=== PATIENT | female | born 1980 | race Hispanic/Latino ===

== ENCOUNTER 2019-08-15 19:10 | Inpatient (IN) | payer OTHER ==
[2019-08-15] MEDS ORDERED: NALOXONE 0.4 MG/ML VIAL ONE (19:16)
[2019-08-15] MEDS ORDERED: NALOXONE HCL 2 MG/2 ML VIAL ONE (19:22)
[2019-08-15] MEDS ORDERED: NA CHLORIDE 0.9% 1,000 ML ONE (19:40)
[2019-08-15 20:04] LABS: Barbiturates NEGATIVE (NEGATIVE); Benzodiazepines POSITIVE (NEGATIVE); Cocaine NEGATIVE (NEGATIVE); METHAMPHETAM POSITIVE (NEGATIVE); Methadone NEGATIVE (NEGATIVE); Opiates POSITIVE (NEGATIVE); Phencyclidine NEGATIVE (NEGATIVE); THC Cannibis POSITIVE (NEGATIVE)
[2019-08-15 20:09] LABS: Absolute Lymphocytes (CBC) 1.3 K/uL (0.7-4.9); Basophils % 0.4 % (0-1.3); Hematocrit 34.6 % (36.0-45.0); MPV 7.6 fL (7.6-11.3); RBC Red Blood Cell Count 3.71 M/uL (3.86-4.86)
[2019-08-15 20:13] LABS: Urine Blood NEGATIVE (NEG); Urine Glucose 2+ (NEG); Urine Protein 2+ (NEG); Urine Specific Gravity >1.030 (1.005-1.030); Urine pH 5.5 (5.0-7.0)
[2019-08-15 20:23] LABS: Protime INR 1.03
--- NOTE | 2019-08-15 20:52 | EDPHYS ---
Physician Documentation [facility] Name: Dee Espinosa Age: 38 yrs Sex: Female : 1980 Arrival Date: 08/15/2019 Time: 19:18 Bed 4 Private MD: ED Physician Archie Dyer HPI: 08/15 19:38 This 38 yrs old Female presents to ER via EMS with complaints of altered ma2 mental status . 19:38 The patient presents with decreased mental status. Onset: The symptoms/episode ma2 began/occurred suddenly, 1 day(s) ago. Possible causes: drug use. Associated signs and symptoms: Pertinent negatives:. Current symptoms: In the emergency department the patient's symptoms are unchanged from the initial presentation. The patient has experienced similar episodes in the past, It is unknown whether or not the patient has had similar symptoms in the past. Historical: - Allergies: 19:34 No Known Allergies; lp1 - Home Meds: 21:54 risperidone 3 mg Oral tab 1 tab nightly [Active]; Triumeq 600-50-300 mg Oral tab 1 tab lp1 once daily [Active]; Xanax Oral [Active]; - PMHx: 19:34 Anxiety; Asthma; HIV; lp1 - PSHx: 19:34 Unable to obtain; lp1 - Immunization history:: Adult Immunizations unknown. - Social history:: Smoking status: unknown Patient uses alcohol, street drugs, The patient lives alone. - Ebola Screening: : No symptoms or risks identified at this time. - Family history:: pertinent for. ROS: 19:38 Constitutional: Negative for fever, chills, and weight loss. ma2 19:38 All other systems are negative. 19:38 Unable to obtain ROS due to altered mental status. ma2 Exam: 19:38 Constitutional: This is a well developed, well nourished patient who is awake, alert, ma2 and in no acute distress. 19:38 Head/Face: Normocephalic, atraumatic. Eyes: Pupils equal round and reactive to light, extra-ocular motions intact. Lids and lashes normal. Conjunctiva and sclera are non-icteric and not injected. Cornea within normal limits. Periorbital areas with no swelling, redness, or edema. Chest/axilla: Normal chest wall appearance and motion. Nontender with no deformity. No lesions are appreciated. Cardiovascular: Regular rate and rhythm with a normal S1 and S2. No gallops, murmurs, or rubs. Normal PMI, no JVD. No pulse deficits. Respiratory: Lungs have equal breath sounds bilaterally, clear to auscultation and percussion. No rales, rhonchi or wheezes noted. No increased work of breathing, no retractions or nasal flaring. Abdomen/GI: Soft, non-tender, with normal bowel sounds. No distension or tympany. No guarding or rebound. No evidence of tenderness throughout. Back: No spinal tenderness. No costovertebral tenderness. Full range of motion. Skin: Warm, dry with normal turgor. Normal color with no rashes, no lesions, and no evidence of cellulitis. MS/ Extremity: Pulses equal, no cyanosis. Neurovascular intact. Full, normal range of motion. 19:38 Neuro: Orientation: unable to test, Mentation: lucid, Memory: unable to test, Cranial nerves: Vital Signs: 19:10 Pulse Ox 84% on R/A; lp1 19:15 BP 120 / 84; Pulse 110; Resp 14; Pulse Ox 94% on 4 lpm NC; Weight 56.7 kg; lp1 19:36 BP 114 / 93; Pulse 103; Resp 14; Temp 97(TE); Pulse Ox 95% on 4 lpm NC; lp1 20:06 BP 105 / 85; Pulse 103; Resp 20; Pulse Ox 93% on 4 lpm NC; lp1 20:30 BP 111 / 92; Pulse 99; Resp 19; Pulse Ox 92% on 4 lpm NC; lp1 21:00 BP 107 / 93; Pulse 98; Resp 13; Pulse Ox 97% on 4 lpm NC; lp1 21:45 BP 119 / 93; Pulse 100; Resp 14; Pulse Ox 97% on 4 lpm NC; lp1 MDM: 19:18 Patient medically screened. ma2 19:38 Differential Diagnosis: electrolyte abnormality, alcohol intoxication, overdose, volume ma2 depletion. 20:50 Data reviewed: vital signs, nurses notes. Counseling: I had a detailed discussion with ma2 the patient and/or guardian regarding: the historical points, exam findings, and any diagnostic results supporting the discharge/admit diagnosis, the presence of at least one elevated blood pressure reading (>120/80) during this emergency department visit, the need for further work-up and treatment in the hospital. Response to treatment: the patient's symptoms have markedly improved after treatment. 08/15 19:19 Order name: Acetaminophen [facility] 08/15 19:19 Order name: Basic Metabolic Panel [facility] 08/15 19:19 Order name: CBC with Diff; Complete Time: 20:24 [facility] 08/15 19:19 Order name: ETOH Level; Complete Time: 20:48 [facility] 08/15 19:19 Order name: Hepatic Function [facility] 08/15 19:19 Order name: PT-INR; Complete Time: 20:48 [facility] 08/15 19:19 Order name: Ptt, Activated; Complete Time: 20:48 [facility] 08/15 19:19 Order name: Salicylate; Complete Time: 20:48 [facility] 08/15 19:19 Order name: Urine Drug Screen; Complete Time: 20:24 [facility] 08/15 19:34 Order name: Urine Dipstick--Ancillary (enter results); Complete Time: 20:24 [place] 08/15 19:34 Order name: Urine --Ancillary (enter results); Complete Time: 20:24 [place] 08/16 05:21 Order name: CBC with Automated Diff EDMS 08/16 05:30 Order name: Basic Metabolic Panel [facility] 08/16 05:30 Order name: Magnesium EDMS 08/15 19:19 Order name: Urine Test (obtain specimen); Complete Time: 19:28 [facility] 08/15 19:19 Order name: EKG; Complete Time: 19:20 [facility] 08/15 19:19 Order name: EKG - Nurse/Tech; Complete Time: 19:28 [facility] 08/15 19:19 Order name: IV Saline Lock; Complete Time: 19:28 [facility] 08/15 19:19 Order name: Labs collected and sent; Complete Time: 20:46 [facility] 08/15 19:19 Order name: Urine Dipstick-Ancillary (obtain specimen); Complete Time: 19:28 ma2 Administered Medications: 19:25 Drug: NARcan 4 mg Route: IVP; Site: left antecubital; lp1 20:45 Follow up: Response: No adverse reaction lp1 19:46 Drug: NS 0.9% 1000 ml Route: IV; Rate: 1 bolus; Site: left antecubital; lp1 20:45 Follow up: IV Status: Completed infusion; IV Intake: 1000ml lp1 Disposition: 08/15/19 20:51 Hospitalization ordered by Jaden Reed for Observation. Preliminary diagnosis is Altered mental status, unspecified. - Bed requested for Telemetry/MedSurg (observation). - Status is Observation. sg - Condition is Fair. - Problem is new. - Symptoms are unchanged. UTI on Admission? No Signatures: Dispatcher [employer] EDMS Janet Ag RN RN Izaiah Sultana RN RN Kaur Fernandez RN RN 1 Archie Dyer MD MD ms2 Corrections: (The following items were deleted from the chart) 21:32 20:51 Hospitalization Ordered by Jaden Reed DO for Observation. Preliminary diagnosis is Altered mental status, unspecified. Bed requested for Telemetry/MedSurg (observation). Status is Observation. Condition is Fair. Problem is new. Symptoms are unchanged. UTI on Admission? No. ma2 08/16 05:32 08/15 21:32 08/15/2019 20:51 Hospitalization Ordered by Jaden Reed DO for Observation. Preliminary diagnosis is Altered mental status, unspecified. Bed requested for [email or web address] ER HOLD. Status is Observation. Condition is Fair. Problem is new. Symptoms are unchanged. UTI on Admission? No. mw 08/16 07:45 05:32 08/15/2019 20:51 Hospitalization Ordered by Jaden Reed DO for Observation. sg Preliminary diagnosis is Altered mental status, unspecified. Bed requested for Telemetry/MedSurg (observation). Status is Observation. Condition is Fair. Problem is new. Symptoms are unchanged. UTI on Admission? No. mw
--- NOTE | 2019-08-15 20:52 | ER ---
Nurse's Notes [facility] Name: Dee Espinosa Age: 38 yrs Sex: Female : 1980 Arrival Date: 08/15/2019 Time: 19:18 Bed 4 Private MD: Diagnosis: Altered mental status, unspecified Presentation: 08/15 19:07 Presenting complaint: EMS states: Roommates called for patient who was unresponsive; lp1 States patient has history of meth abuse; Patient breathing 1-3 breaths a minute on arrival; given Narcan 4 mg IV, patient more awake and responding en route to ED; Denies taking any drugs. 19:07 Transition of care: patient was not received from another setting of care. Onset of lp1 symptoms was August 15, 2019. Risk Assessment: Do you want to hurt yourself or someone else? Patient reports no desire to harm self or others. Initial Sepsis Screen: Does the patient meet any 2 criteria? No. Patient's initial sepsis screen is negative. Does the patient have a suspected source of infection? No. Patient's initial sepsis screen is negative. Care prior to arrival: Medication(s) given: Normal saline infusion, 300 ml Narcan 4 mg IV IV initiated. 20 GA, in the left antecubital area, Glucose check: 268 Oxygen administered. via nasal cannula. 19:07 Method Of Arrival: EMS: [facility] 1 19:07 Acuity: EDUARD 1 lp1 Historical: - Allergies: 19:34 No Known Allergies; lp1 - Home Meds: 21:54 risperidone 3 mg Oral tab 1 tab nightly [Active]; Triumeq 600-50-300 mg Oral tab 1 tab lp1 once daily [Active]; Xanax Oral [Active]; - PMHx: 19:34 Anxiety; Asthma; HIV; lp1 - PSHx: 19:34 Unable to obtain; lp1 - Immunization history:: Adult Immunizations unknown. - Social history:: Smoking status: unknown Patient uses alcohol, street drugs, The patient lives alone. - Ebola Screening: : No symptoms or risks identified at this time. - Family history:: pertinent for. Screenin:34 Abuse screen: Denies threats or abuse. Denies injuries from another. Nutritional lp1 screening: No deficits noted. Tuberculosis screening: No symptoms or risk factors identified. Fall Risk Total Thomas Fall Scale indicates High Risk Score (45 or more points). Fall prevention measures have been instituted. Side Rails Up X 2 Placed Close to Nursing Station Frequent Obs/Assessments Occuring. Assessment: 19:34 General: Appears in no apparent distress. Behavior is drowsy. Pain: Denies pain. Neuro: lp1 Level of Consciousness is Drowsy; responding on verbal stimuli . Oriented to person. Cardiovascular: Patient's skin is warm and dry. Respiratory: Airway is patent Trachea midline Respiratory effort is even, Breath sounds are clear bilaterally. GI: Abdomen is non-distended. : No deficits noted. EENT: No deficits noted. Derm: Skin is intact, Skin is dry, Skin is normal. Musculoskeletal: No deficits noted. 19:35 Reassessment: Patient states "I didn't take anything, I'm just really tired". lp1 20:07 Reassessment: Patient resting, eyes closed, respirations even; aroused on verbal lp1 stimuli. 20:52 Reassessment: Dr. Reed at bedside to discuss care with patient; patient responding. lp1 Vital Signs: 19:10 Pulse Ox 84% on R/A; lp1 19:15 BP 120 / 84; Pulse 110; Resp 14; Pulse Ox 94% on 4 lpm NC; Weight 56.7 kg; lp1 19:36 BP 114 / 93; Pulse 103; Resp 14; Temp 97(TE); Pulse Ox 95% on 4 lpm NC; lp1 20:06 BP 105 / 85; Pulse 103; Resp 20; Pulse Ox 93% on 4 lpm NC; lp1 20:30 BP 111 / 92; Pulse 99; Resp 19; Pulse Ox 92% on 4 lpm NC; lp1 21:00 BP 107 / 93; Pulse 98; Resp 13; Pulse Ox 97% on 4 lpm NC; lp1 21:45 BP 119 / 93; Pulse 100; Resp 14; Pulse Ox 97% on 4 lpm NC; lp1 ED Course: 19:18 Patient arrived in ED. ea 19:18 Archie Dyer MD is Attending Physician. ma2 19:28 Kaur Fernandez, ERIC is Primary Nurse. lp1 19:30 Maintain EMS IV. Dressing intact. Site clean \\T\\ dry. Gauge \\T\\ site: 20 g to L AC. lp 1 19:32 Triage completed. lp1 19:32 Arm band placed on right wrist. lp1 19:35 Patient has correct armband on for positive identification. Placed in gown. Cardiac lp1 monitor on. Pulse ox on. NIBP on. 20:50 Jaden Reed DO is Hospitalizing Provider. ma2 21:53 No provider procedures requiring assistance completed. lp1 21:53 Patient admitted, IV remains in place. lp1 Administered Medications: 19:25 Drug: NARcan 4 mg Route: IVP; Site: left antecubital; lp1 20:45 Follow up: Response: No adverse reaction lp1 19:46 Drug: NS 0.9% 1000 ml Route: IV; Rate: 1 bolus; Site: left antecubital; lp1 20:45 Follow up: IV Status: Completed infusion; IV Intake: 1000ml lp1 Intake: 20:45 IV: 1000ml; Total: 1000ml. lp1 Outcome: 20:51 Decision to Hospitalize by Provider. ma2 21:30 Admitted to ER Hold. Please see [facility] for further documentation. lp1 21:30 Condition: stable 21:30 Instructed on the need for admit. 08/16 07:45 Patient left the ED. sg Signatures: Izaiah Sultana RN RN sg Pena, Laura, RN RN 1 Tracey Nieves RN RN ea Alzahri, Mohammad, MD MD ks2 Corrections: (The following items were deleted from the chart) 08/15 19:46 19:36 BP 114 / 93; Pulse 103bpm; Resp 14bpm; Pulse Ox 95% 4 lpm Nasal Cannula; lp1 lp1
[2019-08-15 20:55] LABS: ALT/SGPT 35 U/L (12-78); AST/SGOT 42 U/L (15-37); Albumin 3.5 g/dL (3.4-5.0); Alkaline Phosphatase 71 U/L (45-117); BUN Blood Urea Nitrogen 9 mg/dL (7-18); Bicarbonate 26 mmol/L (21-32); Bilirubin Direct < 0.1 mg/dL (0-0.2); Bilirubin Total 0.2 mg/dL (0.2-1.0); Glucose Level 176 mg/dL (74-106); Potassium 4.1 mmol/L (3.5-5.1); Protein, Total 7.3 g/dL (6.4-8.2); Sodium Level 142 mmol/L (136-145)
[2019-08-15 22:02] VITALS: BMI 22.8
[2019-08-15] MEDS ORDERED: LORazepam 2 MG/ML VIAL IV PRN (22:11)
[2019-08-15] MEDS: NACHLORIDE 0.45% 1,000 ML IV SCH (22:11)
[2019-08-15] MEDS ORDERED: ONDANSETRON 4 MG/2 ML VIAL IV PRN (22:11)
--- NOTE | 2019-08-15 22:34 | P.HP ---
Certification for Inpatient Patient admitted to: Observation With expected LOS: <2 Midnights Patient will require the following post-hospital care: Other (Drug rehab) Practitioner: I am a practitioner with admitting privileges, knowledge of patient current condition, hospital course, and medical plan of care. Services: Services provided to patient in accordance with Admission requirements found in Title 42 Section 412.3 of the Code of Federal Regulations Patient History Date of Service: 08/15/19 Primary Care Provider: Unknown Reason for admission: Confusion History of Present Illness: 38-year-old female presented to the emergency room with confusion. She was brought in by EMS. Most of the information came from the ER physician. ER reports that she apparently took multiple drugs including narcotic, benzodiazepine, amphetamine and THC. She apparently had a big alliance party. Patient did not do this to hurt herself. Patient was lethargic. Patient was a poor historian. She was not very cooperative. In the ER patient evaluated. She was given IV fluids. Vital signs stable. CBC unremarkable. Sodium 142, potassium 4.1, creatinine 0.83 with a GFR 78. AST 42. Patient was positive for opiates, benzodiazepines, THC, and amphetamines. Tylenol level within normal range. Alcohol level negative. Patient was not able to be discharged due to increase fatigue and slight confusion. Patient was admitted for further evaluation and treatment. When I saw the patient in the ER, she appeared stable. She was still lethargic. She was not cooperative in her history. Patient with history of suicide attempt. When asked if she deliberately took multiple medications to hurt herself, she reported no. Patient admits taking amphetamines-adderall. Allergies No Known Drug Allergies Allergy (Verified 03/02/15 05:27) Unknown Home medications list reviewed: Yes Home Medications: Alprazolam [Xanax] 2 mg PO TIDP PRN 08/03/13 Ranitidine [Zantac*] 150 mg PO DAILY 08/03/13 Cyclobenzaprine [Flexeril*] 10 mg PO TID PRN 02/28/15 Dextroamphetamine/Amphetamine [Amphetamine Salts 30 mg Tablet] 30 mg PO DAILY Quetiapine Fumarate 200 mg PO BEDTIME 02/28/15 Hydrocodone 10/APAP 325 [[place] 10/325] 1 tab PO Q6H PRN #40 tab 03/02/15 Promethazine Tab [Phenergan*] 25 mg PO Q4H PRN #30 tab 03/02/15 levoFLOXacin [Levaquin] 500 mg PO DAILY #7 tab 03/02/15 - Past Medical/Surgical History Diabetic: No -: Irritable bowel syndrome -: Persistent nausea/vomiting -: Depression/anxiety -: History of suicide attempt -: Cholecystectomy -: Tubal ligation Psychosocial/ Personal History: Unknown - Family History Family History: Reviewed- Non-Contributory - Social History Smoking Status: Unknown if ever smoked Alcohol use: No CD- Drugs: No Caffeine use: Yes Place of Residence: Home Review of Systems is unable to be obtained Physical Examination - Vital Signs Temperature: 97 F Blood Pressure: 110/85 Pulse: 104 Respirations: 14 Pulse Ox (%): 97 - Physical Exam General: Alert, In no apparent distress, Oriented x2, Disheveled, Other ( Patient very lethargic. Not cooperating with history) HEENT: Atraumatic, Normocephalic, PERRLA, Other (Dry mucous membranes) Neck: Supple Respiratory: Clear to auscultation bilaterally, Normal air movement Cardiovascular: Normal pulses, Regular rate/rhythm Gastrointestinal: Normal bowel sounds, Soft and benign, Non-distended, No tenderness, No masses, No rebound, No guarding Musculoskeletal: No erythema, No tenderness, No warmth Integumentary: No tenderness/swelling, No erythema, No warmth, No cyanosis Neurological: Normal speech, Normal strength at 5/5 x4 extr, Normal tone, Abnormal affect (Patient lethargic.) - Studies Laboratory Data (last 24 hrs) 08/15/19 20:01: PT 12.1, INR 1.03, APTT 30.1 08/15/19 20:01: WBC 7.0, Hgb 11.7 L, Hct 34.6 L, Plt Count 253 08/15/19 20:01: Sodium 142, Potassium 4.1, BUN 9, Creatinine 0.83, Glucose 176 H , Total Bilirubin 0.2, AST 42 H, ALT 35, Alkaline Phosphatase 71 Assessment and Plan - Plan Impression: Confusion/lethargy related to multiple drug overdose, non intentional Depression with anxiety Mild dehydration Plan: Confusion/lethargy related to multiple drug overdose, non intentional: Patient will be admitted for further evaluation and treatment. Will provide IV fluids. Will monitor and replace electrolytes appropriately. Will provide folic acid and thiamine. Will continue to reassess. Patient reports that she did not take multiple drugs intentionally. She does not appear suicidal. She admits taking Adderall. She was not aware of the other medications. Will need to obtain more information from patient and family wants better hydrated. Patient likely requires drug rehab as an outpatient. Will need to investigate where she gets her multiple medications so that the providers are giving information of non intentional overdose. Daytime hospitalist will continue her care tomorrow. Anticipate discharge tomorrow if clinically stable. Depression with anxiety: Will provide medication as needed. Will need to obtain home medication. Mild dehydration: Will provide IV fluids. Will monitor closely. Discharge Plan: Home Plan to discharge in: 24 Hours - Advance Directives Does patient have a Living Will: No Does patient have a Durable POA for Healthcare: No - Code Status/Comfort Care Code Status Assessed: Yes (Patient is full code) Time Spent Managing Pts Care (In Minutes): 55
[2019-08-16 05:17] LABS: Absolute Lymphocytes (CBC) 1.1 K/uL (0.7-4.9); Basophils % 0.3 % (0-1.3); Hematocrit 35.9 % (36.0-45.0); Lymphocytes % 15.6 % (15.3-44.8); MPV 7.4 fL (7.6-11.3); RBC Red Blood Cell Count 3.88 M/uL (3.86-4.86)
[2019-08-16 05:29] LABS: BUN Blood Urea Nitrogen 7 mg/dL (7-18); Bicarbonate 25 mmol/L (21-32); Glucose Level 125 mg/dL (74-106); Magnesium 1.7 mg/dL (1.8-2.4); Potassium 3.5 mmol/L (3.5-5.1); Sodium Level 140 mmol/L (136-145)
[2019-08-16] MEDS ORDERED: POTASSIUM 25 MEQ EFFERV TAB PO ONE (06:19)
[2019-08-16] MEDS ORDERED: MAGNESIUM SULFATE 1 gm IVPB 1 GM/100 ML BAG IV ONE (06:21)
[2019-08-16] MEDS ORDERED: INFLUENZA VACCINE (for 3y+) 0.5 ML DOSE IMVAC ONE (08:00)
[2019-08-16] MEDS: NACHLORIDE 0.45% 1,000 ML IV SCH ×3 (08:22→20:41)
[2019-08-16] MEDS: THIAMINE HCL 100 MG TABLET PO SCH (09:07)
[2019-08-16] MEDS: FAMOTIDINE 20 MG TAB PO SCH ×2 (09:07→20:42)
[2019-08-16] MEDS: FOLIC ACID 1 MG TABLET PO SCH (09:07)
[2019-08-16] MEDS: ENOXAPARIN 40 MG/0.4 ML SQ SCH (09:08)
[2019-08-16] MEDS: ACETAMINOPHEN 500 MG TAB PO PRN (09:14)
[2019-08-16 10:58] LABS: Urine Appearance CLOUDY; Urine Bilirubin NEGATIVE (NEG); Urine Blood NEGATIVE (NEG); Urine Color YELLOW; Urine Glucose TRACE (NEG); Urine Microscopic Reflex ORDER UMIC; Urine Protein NEGATIVE (NEG); Urine pH 7.5 (5.0-7.0)
[2019-08-16 11:07] LABS: Urine Bacteria >50 /HPF (<20); Urine Culture Reflex Order REFLEXED; Urine RBC <5 /HPF (NONE SEEN)
--- NOTE | 2019-08-16 12:17 | EKG ---
Test Date: 2019-08-16 Test Time: 11:26:07 Internal Grinder Set Up Operator: JONI MEASUREMENT RESULTS: Intervals: Rate: 113 AR: 132 QRSD: 74 QT: 330 QTc: 452 [place]: P: 44 AR: 132 QRS: 60 T: 58 INTERPRETIVE STATEMENTS: Sinus tachycardia Otherwise normal ECG Compared to ECG 08/02/2013 14:38:20 Sinus rhythm no longer present Sinus arrhythmia no longer present Short AR interval no longer present Electronically Signed On 08-16-19 12:17:22 CDT by Elias Gomez
--- NOTE | 2019-08-16 13:00 | P.PN ---
Subjective Date of Service: 08/16/19 Primary Care Provider: Unknown Chief Complaint: Confusion Patient seen and examined at bedside. No family at bedside. Chart reviewed and case discussed with nursing staff. Patient crying during the interview; denies any suicidal homicidal ideations at this time. Primary care physician is Dr. garnett. She does not see a psychiatrist at this time Review of Systems 10-point ROS is otherwise unremarkable Physical Examination - Vital Signs Temperature: 98.7 F Blood Pressure: 105/75 Pulse: 112 Respirations: 18 Pulse Ox (%): 94 - Physical Exam General: Alert, Oriented x3, Mild distress HEENT: Atraumatic, PERRLA, EOMI Neck: Supple, JVD not distended Respiratory: Clear to auscultation bilaterally, Normal air movement Cardiovascular: Regular rate/rhythm, Normal S1 S2 Gastrointestinal: Normal bowel sounds, No tenderness Musculoskeletal: No tenderness Integumentary: No rashes Neurological: Normal speech, Normal tone, Normal affect Lymphatics: No axilla or inguinal lymphadenopathy Other Physical/Emotional Findings: Teary, crying during interview. - Studies Laboratory Data (last 24 hrs) 08/16/19 05:07: Sodium 140, Potassium 3.5, BUN 7, Creatinine 0.69, Glucose 125 H , Magnesium 1.7 L 08/16/19 05:07: WBC 7.3, Hgb 12.2, Hct 35.9 L, Plt Count 256 08/15/19 20:01: PT 12.1, INR 1.03, APTT 30.1 08/15/19 20:01: WBC 7.0, Hgb 11.7 L, Hct 34.6 L, Plt Count 253 08/15/19 20:01: Sodium 142, Potassium 4.1, BUN 9, Creatinine 0.83, Glucose 176 H , Total Bilirubin 0.2, AST 42 H, ALT 35, Alkaline Phosphatase 71 Assessment And Plan - Plan Impression: Confusion/lethargy related to multiple drug overdose, non intentional Depression with anxiety Mild dehydration Plan: Confusion/lethargy related to multiple drug overdose, non intentional: -continue IV fluids. -continue to monitor and replace electrolytes appropriately. -continue folic acid and thiamine. -Patient continues to endorse that she did not take multiple drugs intentionally. She continues to deny any suicidal or homicidal ideations. She admits taking Adderall. -patient states that she does have an multiple mental health problems and she normally does not have any gas. Her roommate had cats over last night were doing these drugs and she got excited and got carried away with it and did the multiple drugs there. She was not trying to hurt herself or kill herself. She does need an will benefit greatly from psych follow up. Will get social work consultation. Depression with anxiety: Restart home medication Mild dehydration: Improving, continue IV fluids
[2019-08-17] MEDS: NACHLORIDE 0.45% 1,000 ML IV SCH ×3 (03:28→14:11)
[2019-08-17 06:21] LABS: BUN Blood Urea Nitrogen 4 mg/dL (7-18); Bicarbonate 27 mmol/L (21-32); Glucose Level 100 mg/dL (74-106); Magnesium 1.8 mg/dL (1.8-2.4); Potassium 3.6 mmol/L (3.5-5.1); Sodium Level 141 mmol/L (136-145)
[2019-08-17] MEDS: THIAMINE HCL 100 MG TABLET PO SCH (07:52)
[2019-08-17] MEDS: FAMOTIDINE 20 MG TAB PO SCH ×2 (07:52→21:23)
[2019-08-17] MEDS: FOLIC ACID 1 MG TABLET PO SCH (07:53)
[2019-08-17] MEDS: ENOXAPARIN 40 MG/0.4 ML SQ SCH (07:54)
[2019-08-17] MEDS: ACETAMINOPHEN 500 MG TAB PO PRN (07:55)
[2019-08-17] MEDS ORDERED: MAGNESIUM SULFATE 1 gm IVPB 1 GM/100 ML BAG IV ONE (09:00)
[2019-08-17] MEDS ORDERED: POTASSIUM CL SA 10 MEQ TAB PO ONE (09:00)
--- NOTE | 2019-08-17 17:23 | P.PN ---
Subjective Date of Service: 08/17/19 Primary Care Provider: Unknown Chief Complaint: Confusion Subjective: Improving Patient seen and examined at bedside. No family at bedside. Chart reviewed and case discussed with nursing staff. Patient a little sleepy this morning but arousable. denies any suicidal homicidal ideations at this time. Primary care physician is Dr. garnett. She does not see a psychiatrist at this time Review of Systems 10-point ROS is otherwise unremarkable Physical Examination - Vital Signs Temperature: 97.4 F Blood Pressure: 104/65 Pulse: 98 Respirations: 17 Pulse Ox (%): 97 - Physical Exam General: Alert, In no apparent distress HEENT: Atraumatic, PERRLA, EOMI Neck: Supple, JVD not distended Respiratory: Clear to auscultation bilaterally, Normal air movement Cardiovascular: Regular rate/rhythm, Normal S1 S2 Gastrointestinal: Normal bowel sounds, No tenderness Musculoskeletal: No tenderness Integumentary: No rashes Neurological: Normal speech, Normal tone, Normal affect Lymphatics: No axilla or inguinal lymphadenopathy Other Physical/Emotional Findings: Teary, crying during interview. Assessment And Plan - Plan Impression: Confusion/lethargy related to multiple drug overdose, non intentional Depression with anxiety Mild dehydration Plan: Confusion/lethargy related to multiple drug overdose, non intentional: -continue IV fluids. -continue to monitor and replace electrolytes appropriately. -continue folic acid and thiamine. -Patient continues to endorse that she did not take multiple drugs intentionally. She continues to deny any suicidal or homicidal ideations. She admits taking Adderall. -patient states that she does have an multiple mental health problems and she normally does not have any gas. Her roommate had cats over last night were doing these drugs and she got excited and got carried away with it and did the multiple drugs there. She was not trying to hurt herself or kill herself. She does need an will benefit greatly from psych follow up. Will get social work consultation. Pending [facility] evaluation tomorrow. She is now medically stable. Depression with anxiety: Restart home medication Mild dehydration: Improving, continue IV fluids
[2019-08-17 21:27] VITALS: O2SAT 97
[2019-08-18] MEDS: NACHLORIDE 0.45% 1,000 ML IV SCH ×3 (00:11→10:11)
[2019-08-18 05:22] LABS: BUN Blood Urea Nitrogen 9 mg/dL (7-18); Bicarbonate 26 mmol/L (21-32); Glucose Level 92 mg/dL (74-106); Magnesium 1.8 mg/dL (1.8-2.4); Potassium 3.8 mmol/L (3.5-5.1); Sodium Level 140 mmol/L (136-145)
[2019-08-18] MEDS: ENOXAPARIN 40 MG/0.4 ML SQ SCH (08:37)
[2019-08-18] MEDS: FOLIC ACID 1 MG TABLET PO SCH (08:37)
[2019-08-18] MEDS: FAMOTIDINE 20 MG TAB PO SCH (08:37)
[2019-08-18] MEDS: THIAMINE HCL 100 MG TABLET PO SCH (08:37)
[2019-08-18] MEDS ORDERED: MAGNESIUM SULFATE 1 gm IVPB 1 GM/100 ML BAG IV ONE (09:00)
[2019-08-18] MEDS ORDERED: POTASSIUM CL SA 10 MEQ TAB PO ONE (09:00)
--- NOTE | 2019-08-18 14:10 | P.DS ---
Admission Date: 08/16/19 Discharge Date: 08/18/19 Primary Care Provider: Unknown Disposition: ROUTINE DISCHARGE Discharge Condition: GOOD Reason for Admission: Confusion Brief History of Present Illness: 38-year-old female presented to the emergency room with confusion. She was brought in by EMS. Most of the information came from the ER physician. ER reports that she apparently took multiple drugs including narcotic, benzodiazepine, amphetamine and THC. She apparently had a big alliance party. Patient did not do this to hurt herself. Patient was lethargic. Patient was a poor historian. She was not very cooperative. In the ER patient evaluated. She was given IV fluids. Vital signs stable. CBC unremarkable. Sodium 142, potassium 4.1, creatinine 0.83 with a GFR 78. AST 42. Patient was positive for opiates, benzodiazepines, THC, and amphetamines. Tylenol level within normal range. Alcohol level negative. Patient was not able to be discharged due to increase fatigue and slight confusion. Patient was admitted for further evaluation and treatment. When I saw the patient in the ER, she appeared stable. She was still lethargic. She was not cooperative in her history. Patient with history of suicide attempt. When asked if she deliberately took multiple medications to hurt herself, she reported no. Patient admits taking amphetamines-adderall. Hospital Course: Patient was provided with symptomatic and supportive care along with IV fluids. Her electrolytes were monitored and replaced appropriately.Patient continued to endorse that she did not take multiple drugs intentionally. She continues to deny any suicidal or homicidal ideations. She admitted to taking Adderall. patient stated that she does have multiple mental health problems and she normally does not have any guests. Her roommate had guests over and were doing these drugs and she got excited and got carried away with it and did the multiple drugs there. She was not trying to hurt herself or kill herself. Patient was evaluated by the mental health team. She was provided with resources that she is motivated to follow up on. She was medically cleared for discharge. Her diagnoses and treatment plan was explained to her she verbalized understanding and then she was discharged home in a safe and stable manner. She will follow up with the psychiatrist as well as her primary care physician. Vital Signs/Physical Exam: Temp Pulse Resp BP Pulse Ox 97.2 F 98 H 18 100/68 95 08/18/19 12:00 10/03/19 12:00 08/18/19 12:00 08/18/19 12:00 08/18/19 12:00 General: Alert, In no apparent distress HEENT: Atraumatic, PERRLA, EOMI Neck: Supple, JVD not distended Respiratory: Clear to auscultation bilaterally, Normal air movement Cardiovascular: Regular rate/rhythm, Normal S1 S2 Gastrointestinal: Normal bowel sounds, No tenderness Musculoskeletal: No tenderness Integumentary: No rashes Neurological: Normal speech, Normal tone, Normal affect Lymphatics: No axilla or inguinal lymphadenopathy Other Physical/Emotional Findings: Teary, crying during interview. Laboratory Data at Discharge: WBC 7.3 K/uL (4.3-10.9) 08/16/19 05:07 Hgb 12.2 g/dL (12.0-15.0) 08/16/19 05:07 Hct 35.9 % (36.0-45.0) L 08/16/19 05:07 Plt Count 256 K/uL (152-406) 08/16/19 05:07 PT 12.1 SECONDS (9.5-12.5) 08/15/19 20:01 INR 1.03 08/15/19 20:01 APTT 30.1 SECONDS (24.3-36.9) 08/15/19 20:01 Sodium 140 mmol/L (136-145) 08/18/19 04:14 Potassium 3.8 mmol/L (3.5-5.1) 08/18/19 04:14 BUN 9 mg/dL (7-18) 08/18/19 04:14 Creatinine 0.53 mg/dL (0.55-1.3) L 08/18/19 04:14 Glucose 92 mg/dL (74-106) 08/18/19 04:14 Magnesium 1.8 mg/dL (1.8-2.4) 08/18/19 04:14 Total Bilirubin 0.2 mg/dL (0.2-1.0) 08/15/19 20:01 AST 42 U/L (15-37) H 08/15/19 20:01 ALT 35 U/L (12-78) 08/15/19 20:01 Alkaline Phosphatase 71 U/L (45-117) 08/15/19 20:01 Home Medications: Alprazolam [Xanax] 2 mg PO BID PRN 08/03/13 Dextroamphetamine/Amphetamine [Amphetamine Salts 30 mg Tablet] 30 mg PO BID Quetiapine Fumarate 400 mg PO BEDTIME 02/28/15 Abacavir/Dolutegravir/Lamivudi [Triumeq 600-50-300 mg Tablet] 1 each PO DAILY Fluoxetine HCl [Prozac] 20 mg PO DAILY 08/16/19 Amox/Clavulanate [Augmentin 500-125 mg Tab*] 500 mg PO BID #10 tab 08/18/19 New Medications: Amox/Clavulanate [Augmentin 500-125 mg Tab*] 500 mg PO BID #10 tab Patient Discharge Instructions: Please follow up with the primary care physician in 2-3 days. Please make sure to go for all the resources provided to you by the mental Health evaluation team. Return to the emergency room for worsening symptoms Diet: Regular Activity: Ad hira Time spent managing pt's care (in minutes): 55
[2019-08-18 16:14] VITALS: BP 91/61; TEMP 97.5
[2019-08-18] MEDS ORDERED: AMOX/K CLAV 500 MG TAB PO SCH (21:00)
== END 2019-08-18 16:29 | disposition home or self-care (01) | DRG 918 ==
LOC: ER 19:10 → ERHOLD 21:20 → 4TH 08-16 07:34 → OBSVTOIN 08-16 11:42
PROVIDERS: ADMIT Family Medicine; ATTEND Family Medicine
DX: T42.4X1A Poisoning by benzodiazepines, accidental (unintentional), initial encounter (principal); T40.7X1A Poisoning by cannabis (derivatives), accidental (unintentional), initial encounter; T40.601A Poisoning by unspecified narcotics, accidental (unintentional), initial encounter; R41.0 Disorientation, unspecified; Y92.009 Unspecified place in unspecified non-institutional (private) residence as the place of occurrence of the external cause; F32.9 Major depressive disorder, single episode, unspecified; E86.0 Dehydration
CPT/HCPCS: 36415; 80048; 80076; 80307; 80320; 80329; 81003; 81015; 81025; 83735; 85025; 85610; 85730; 87077; 87086; 87088; 87186; 93005; 96361; 96374; 99291; 99292; G0378; J1650; J2310; J3475; J7030

== ENCOUNTER 2021-11-14 09:59 | Observation (INO) | payer OTHER ==
--- OUTSIDE RECORDS SUMMARY | 2021-11-14 10:01 | XMS REPORT | Continuity of Care Document ---
:1980 Author Organization [facility] t Address [address] [place] [address] Dr. Hernandez [address] [place] [id number] Care Team Providers Name Role Phone Carlene-Mbayo_A_AH Attending Clinician Unavailable Carlene-Mbayo_A_AH Admitting Clinician Unavailable Payers Payer Name Policy Type Policy Number Effective Date Expiration Date S ource [facility] [place] - [id number] 2019 [facility] (MEDICARE REPLACEMENT/ADVANT AGE - HMO) Problems This patient has no known problems. Allergies, Adverse Reactions, Alerts This patient has no known allergies or adverse reactions. Medications This patient has no known medications. Procedures This patient has no known procedures. Encounters Start End Encounter Admission Attending Care Care Encounter Source Date/Time Date/Time Type Type Clinicians Facility Department ID 2021-03-15 2021-03-15 Outpatient Carlene-Mbayo [facility] [id number] 10:30:00 10:30:00 _A_AH [id number] Family Practic e 2020-01-04 2020-01-04 Outpatient Carlene-Mbayo [facility] [id number] 07:21:00 07:21:00 _A_AH [id number] Family Practic e 2020-01-04 2020-01-04 Outpatient Carlene-Mbayo [facility] [id number] 07:21:00 07:21:00 _A_AH [id number] Family Practic e Results This patient has no known results.
[2021-11-14 11:36] LABS: Absolute Lymphocytes (CBC) 0.6 K/uL (0.7-4.9); Lymphocytes % 8.5 % (15.3-44.8); MPV 7.1 fL (7.6-11.3); RBC Red Blood Cell Count 2.49 M/uL (3.86-4.86)
[2021-11-14 11:38] LABS: Protime INR 1.28
[2021-11-14] MEDS ORDERED: MORPHINE 2 MG/ML SYR ONE ×4 (11:44→20:50)
[2021-11-14] MEDS ORDERED: ONDANSETRON 4 MG/2 ML VIAL ONE ×3 (11:44→20:50)
[2021-11-14] MEDS ORDERED: FAMOTIDINE 20 MG/2 ML VIAL IV ONE (11:44)
[2021-11-14] MEDS ORDERED: NA CHLORIDE 0.9% 1,000 ML ONE (11:44)
[2021-11-14 11:57] LABS: ALT/SGPT 34 U/L (12-78); AST/SGOT 47 U/L (15-37); Albumin 1.7 g/dL (3.4-5.0); Alkaline Phosphatase 89 U/L (45-117); BUN Blood Urea Nitrogen 11 mg/dL (7-18); Bicarbonate 28 mmol/L (21-32); Bilirubin Direct 0.1 mg/dL (0-0.2); Bilirubin Total 0.3 mg/dL (0.2-1.0); Ferritin 928.3 ng/mL (8-388); Glucose Level 110 mg/dL (74-106); NT PRO-BNP 264 pg/mL (<125); Potassium 3.1 mmol/L (3.5-5.1); Protein, Total 7.6 g/dL (6.4-8.2); Sodium Level 134 mmol/L (136-145); Troponin (Emerg Dept Use Only) < 0.02 ng/mL (0.0-0.045)
[2021-11-14 12:10] LABS: Blood Morphology Comment NOTED (NOT SEEN); White Blood Cell Scan OK (OK)
[2021-11-14 12:11] LABS: Anisocytosis 1+; Platelet Estimate ADEQ
[2021-11-14 12:12] LABS: Hypochromasia 1+
--- NOTE | 2021-11-14 12:20 | RAD REPORT ---
EXAM DESCRIPTION: RAD - Chest Single View - 11/14/2021 12:09 pm CLINICAL HISTORY: COUGH Chest pain. COMPARISON: CHEST SINGLE VIEW dated 02/27/2015; ABDOMEN ACUTE SERIES dated 04/27/2012; CHEST PA AND LA T 2 VIEW dated 01/14/2012; ABDOMEN ACUTE SERIES dated 01/13/2012 FINDINGS: Portable technique limits examination quality. Moderate bilateral pulmonary opacities are present likely representing bilateral pneumonia. The heart is normal in size. No displaced fractures.
--- NOTE | 2021-11-14 12:30 | RAD REPORT ---
EXAM DESCRIPTION: CT - Chest For Pe Angio - 11/14/2021 12:18 pm CLINICAL HISTORY: Chest pain. Chest pain;Dyspnea COMPARISON: No comparisons TECHNIQUE: CT angiogram of the pulmonary arteries was performed with MIP. All CT scans are performed using dose optimization technique as appropriate and may include automated exposure control or mA/KV adjustment according to patient size. FINDINGS: No evidence of pulmonary thromboembolism. No acute aortic finding demonstrated. Extensive bilateral ground-glass lung opacities are present. These are diffuse in nature and bilatera l but slightly worse in the lung bases. Currently, this is probably related to COVID-19 infection. No significant pericardial or pleural fluid. Mild right hilar adenopathy. No concerning bony finding. IMPRESSION: No evidence of pulmonary thromboembolism. Extensive diffuse ground-glass lung opacities bilaterally, likely related to underlying COVID-19 infe ction.
[2021-11-14] MEDS ORDERED: PANTOPRAZOLE 40 MG INJ ONE (12:31)
--- NOTE | 2021-11-14 12:49 | RAD REPORT ---
EXAM DESCRIPTION: US - Extrem Venous W Compress Gm - 11/14/2021 12:40 pm CLINICAL HISTORY: PAIN Bilateral leg edema and swelling. COMPARISON: No comparisons TECHNIQUE: Real-time sonographic interrogation of the left and right lower extremity deep venous sys tems was performed. FINDINGS: Normal compressibility, flow augmentation, phasic flow and spontaneous flow is identified in both the left and right lower extremity deep venous systems. IMPRESSION: No sonographic evidence of left or right lower extremity deep venous thrombosis.
--- NOTE | 2021-11-14 13:28 | EDPHYS ---
Physician Documentation [facility] Name: Dee Espinosa Age: 41 yrs Sex: Female : 1980 Arrival Date: 11/14/2021 Time: 10:40 Bed 3 Private MD: ED Physician Nii Baltazar HPI: 11/14 13:17 This 41 yrs old Female presents to ER via EMS with complaints of Shortness Of sherry Breath, COVID +. 13:17 The patient has shortness of breath at rest, with light activity. Onset: The sherry symptoms/episode began/occurred 5 day(s) ago. Duration: The symptoms are continuous, and are steadily getting worse. The patient's shortness of breath is aggravated by exertion, light activity. Associated signs and symptoms: Pertinent positives: non-productive cough. Severity of symptoms: At their worst the symptoms were moderate in the emergency department the symptoms are unchanged. The patient has experienced similar episodes in the past, several times. 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 - Social history:: Patient uses , Smoking status: unknown. ROS: 13:19 Constitutional: Negative for fever, chills, and weight loss, Eyes: Negative for injury, sherry pain, redness, and discharge, ENT: Negative for injury, pain, and discharge, Neck: Negative for injury, pain, and swelling, Cardiovascular: Negative for chest pain, palpitations, and edema, Abdomen/GI: Negative for abdominal pain, nausea, vomiting, diarrhea, and constipation, Back: Negative for injury and pain, : Negative for injury, bleeding, discharge, and swelling, MS/Extremity: Negative for injury and deformity, Skin: Negative for injury, rash, and discoloration, Neuro: Negative for headache, weakness, numbness, tingling, and seizure, Psych: Negative for depression, anxiety, suicide ideation, homicidal ideation, and hallucinations, Allergy/Immunology: Negative for hives, rash, and allergies, Endocrine: Negative for neck swelling, polydipsia, polyuria, polyphagia, and marked weight changes, Hematologic/Lymphatic: Negative for swollen nodes, abnormal bleeding, and unusual bruising. 13:19 Respiratory: Positive for cough, shortness of breath, at rest. Exam: 13:19 Constitutional: This is a well developed, well nourished patient who is awake, alert, sherry and in no acute distress. Head/Face: Normocephalic, atraumatic. Eyes: Pupils equal round and reactive to light, extra-ocular motions intact. Lids and lashes normal. Conjunctiva and sclera are non-icteric and not injected. Cornea within normal limits. Periorbital areas with no swelling, redness, or edema. ENT: Nares patent. No nasal discharge, no septal abnormalities noted. Tympanic membranes are normal and external auditory canals are clear. Oropharynx with no redness, swelling, or masses, exudates, or evidence of obstruction, uvula midline. Mucous membranes moist. Neck: Trachea midline, no thyromegaly or masses palpated, and no cervical lymphadenopathy. Supple, full range of motion without nuchal rigidity, or vertebral point tenderness. No Meningismus. Chest/axilla: Normal chest wall appearance and motion. Nontender with no deformity. No lesions are appreciated. Cardiovascular: Regular rate and rhythm with a normal S1 and S2. No gallops, murmurs, or rubs. Normal PMI, no JVD. No pulse deficits. Abdomen/GI: Soft, non-tender, with normal bowel sounds. No distension or tympany. No guarding or rebound. No evidence of tenderness throughout. Back: No spinal tenderness. No costovertebral tenderness. Full range of motion. Female : Normal external genitalia. MS/ Extremity: Pulses equal, no cyanosis. Neurovascular intact. Full, normal range of motion. Neuro: Awake and alert, GCS 15, oriented to person, place, time, and situation. Cranial nerves II-XII grossly intact. Motor strength 5/5 in all extremities. Sensory grossly intact. Cerebellar exam normal. Normal gait. Psych: Awake, alert, with orientation to person, place and time. Behavior, mood, and affect are within normal limits. 13:19 ECG was reviewed by the Attending Physician. 13:19 Respiratory: the patient does not display signs of respiratory distress, Respirations: normal, no acute changes, Breath sounds: decreased breath sounds, that are mild, Respiratory rate: 22 13:19 Skin: Appearance: Color: pale. [facility] Vital Signs: 12:08 BP 117 / 87; Pulse 113; Resp 22; Pulse Ox 99% on 3 lpm NC; Pain 6/10; jh6 15:20 BP 123 / 89; Pulse 112; Resp 20; Temp 98.7(O); Pulse Ox 100% on 4 lpm NC; Pain 5/10; jh6 15:35 BP 111 / 90; Pulse 113; Resp 20; Temp 98.6; Pulse Ox 100% on 4 lpm NC; jh6 16:10 BP 127 / 94; Pulse 110; Resp 18; Temp 98.6; Pulse Ox 100% on 4 lpm NC; Pain 5/10; jh6 MDM: 10:48 Patient medically screened. [facility] 13:22 Differential diagnosis: asthma, Bronchitis CHF exacerbation, viral Infection, bacterial sherry infection, bronchitis, pneumonia pneumonia, Pneumothorax pulmonary edema, Pulmonary Embolism reactive airway disease. Antibiotic administration: Rocephin and Zithromax given. Differential Diagnosis sepsis, flu. The patient's Wells Deep Vein Thrombosis Score was calculated as follows: Heart Rate >100 BPM (1.5 Pts) Total Score: 0-2 Pts- Low Risk. The patient's pulmonary embolism risk score was calculated as follows: Total Score: 0-2 points. This patient was found to be at low risk for a pulmonary embolism by using the Well's assessment criteria. Immunization status:. Data reviewed: vital signs, nurses notes, lab test result(s), EKG, radiologic studies, CT scan, doppler, plain films. Data interpreted: conveyor monitor: rate is 113 beats/min, rhythm is regular, Pulse oximetry: on room air is 89 %. Test interpretation: by ED physician or midlevel provider: ECG, plain radiologic studies. Counseling: I had a detailed discussion with the patient and/or guardian regarding: the historical points, exam findings, and any diagnostic results supporting the discharge/admit diagnosis, lab results, radiology results, the need for further work-up and treatment in the hospital. 11/14 10:49 Order name: Basic Metabolic Panel; Complete Time: 12:55 [facility] 11/14 10:49 Order name: CBC with Diff; Complete Time: 12:55 [facility] 11/14 10:49 Order name: LFT's; Complete Time: 12:55 [facility] 11/14 10:49 Order name: Magnesium; Complete Time: 12:55 [facility] 11/14 10:49 Order name: NT PRO-BNP; Complete Time: 12:55 [facility] 11/14 10:49 Order name: PT-INR; Complete Time: 12:55 [facility] 11/14 10:49 Order name: Troponin (emerg Dept Use Only); Complete Time: 12:55 [facility] 11/14 10:49 Order name: D-Dimer; Complete Time: 12:55 [facility] 11/14 10:49 Order name: Ferritin; Complete Time: 12:55 [facility] 11/14 10:49 Order name: CRP; Complete Time: 12:55 [facility] 11/14 11:39 Order name: CBC Smear Scan; Complete Time: 12:55 [facility] 11/14 11:56 Order name: Type And Screen [facility] 11/14 12:58 Order name: Blood Culture Adult (2) [facility] 11/14 12:58 Order name: Lactate; Complete Time: 15:56 [facility] 11/14 12:58 Order name: Blood Culture [facility] 11/14 12:59 Order name: Urine Culture [facility] 11/14 12:59 Order name: UDS; Complete Time: 15:56 [facility] 11/14 13:36 Order name: Packed RBC Leukored [facility] 11/14 13:44 Order name: Folic Acid, (Folate); Complete Time: 12:11 [facility] 11/14 13:44 Order name: Iron; Complete Time: 12:11 [facility] 11/14 13:44 Order name: Vitamin B12 Level; Complete Time: 12:11 [facility] 11/14 13:44 Order name: C-Reactive Protein [facility] 11/14 13:44 Order name: C-Reactive Protein; Complete Time: 12:11 [facility] 11/14 13:44 Order name: Comprehensive Metabolic Panel [facility] 11/14 13:44 Order name: Comprehensive Metabolic Panel; Complete Time: 12:11 [facility] 11/14 13:44 Order name: Ferritin [facility] 11/14 13:44 Order name: Ferritin; Complete Time: 12:11 [facility] 11/14 10:49 Order name: XRAY Chest (1 view); Complete Time: 12:55 [facility] 11/14 10:49 Order name: EKG; Complete Time: 10:50 [facility] 11/14 11:56 Order name: US Extremity Venous W Compression Gm; Complete Time: 12:55 [facility] 11/14 11:56 Order name: CT Chest For PE Angio; Complete Time: 12:55 [facility] 11/14 13:44 Order name: Heart Healthy [facility] 11/14 13:44 Order name: Magnesium; Complete Time: 12:11 [facility] 11/14 13:44 Order name: NT PRO-BNP; Complete Time: 12:11 [facility] 11/14 13:44 Order name: Retic Count; Complete Time: 12:11 [facility] 11/14 13:44 Order name: CBC with Automated Diff [facility] 11/14 13:44 Order name: CBC with Automated Diff; Complete Time: 12:11 [facility] 11/14 13:44 Order name: D-Dimer [facility] 11/14 13:44 Order name: D-Dimer; Complete Time: 12:11 [facility] 11/14 13:44 Order name: Lipid Profile [facility] 11/14 13:44 Order name: Lipid Profile; Complete Time: 12:11 [facility] 11/14 14:13 Order name: ABO/RH no charge; Complete Time: 14:18 [facility] 11/15 02:50 Order name: Gram Stain; Complete Time: 12:11 [facility] 11/15 07:37 Order name: Gram Stain--Aerobic Bottle [facility] 11/15 07:37 Order name: Gram Stain--Anaerobic Bottle [facility] 11/15 07:40 Order name: Gram Stain--Aerobic Bottle [facility] 11/15 07:40 Order name: Gram Stain--Anaerobic Bottle [facility] 11/15 11:16 Order name: Miscellaneous Test Lab; Complete Time: 12:11 [facility] 11/14 10:49 Order name: Cardiac monitoring; Complete Time: 11:33 [facility] 11/14 10:49 Order name: EKG - Nurse/Tech; Complete Time: 11:34 [facility] 11/14 10:49 Order name: IV Saline Lock; Complete Time: 11:33 [facility] 11/14 10:49 Order name: Labs collected and sent; Complete Time: 11:33 [facility] 11/14 10:49 Order name: O2 Per Protocol; Complete Time: 11:33 [facility] 11/14 10:49 Order name: O2 Sat Monitoring; Complete Time: 11:33 [facility] 11/14 12:59 Order name: Urine Dipstick-Ancillary (obtain specimen); Complete Time: 16:20 [facility] 11/14 12:59 Order name: Urine Test (obtain specimen) sherry EC:19 Rate is 117 beats/min. Rhythm is regular. QRS Tarkio is Normal. AR interval is normal. sherry QRS interval is normal. QT interval is normal. No Q waves. T waves are Normal. No ST changes noted. Clinical impression: NSR w/ Non-specific ST/T Changes and No evidence of ischemia. Interpreted by me. Reviewed by me. Administered Medications: 11:36 CANCELLED (Duplicate Order): Meclizine 25 mg PO once [facility] 11:50 Drug: morphine 2 mg Route: IVP; Site: right antecubital; jl7 11:51 Drug: NS 0.9% 1000 ml Route: IV; Rate: 125 ml/hr; Site: right antecubital; as6 11:51 Drug: Zofran (Ondansetron) 4 mg Route: IVP; Site: right upper arm; as6 11:51 Drug: morphine 2 mg Route: IVP; Site: right antecubital; as6 13:00 Follow up: Response: Pain is decreased 6 11:52 Drug: Pepcid (famotidine) 20 mg Route: IVP; Site: right antecubital; as6 12:53 Drug: ProTONIX (pantoprazole) 40 mg Route: IVP; Site: right antecubital; jl7 15:30 Drug: SOLU-Medrol (methylPrednisoLONE) 125 mg Route: IVP; Site: right antecubital; 6 16:19 Follow up: Response: No adverse reaction jh6 15:30 Drug: Potassium Effervescent Tablet 25 mEq Route: PO; jh6 16:18 Follow up: Response: No adverse reaction [facility] 15:48 Drug: Rocephin (cefTRIAXone) 1 grams Route: IV; Rate: per protocol; Site: left [facility] antecubital; 16:00 Follow up: Response: No adverse reaction; IV Status: Completed infusion 6 16:00 Drug: Ketorolac 30 mg Route: IVP; Site: left antecubital; 6 16:20 Drug: Zithromax (azithromycin) 500 mg Route: IVPB; Infused Over: 1 hrs; Site: left [facility] antecubital; Disposition Summary: 11/14/21 13:27 Hospitalization Ordered Hospitalization Status: Inpatient Admission sherry Provider: Archie Wesley cha Condition: Fair sherry Problem: new sherry Symptoms: have improved sherry Bed/Room Type: Standard sherry Location: [facility] ER HOLD(12/30/21 21:37) mw Room Assignment: ERHOLD-(11/14/21 21:37) Diagnosis - Hypoxemia sherry - Anemia, unspecified sherry - Coronavirus infection, unspecified sherry - Pneumonia due to SARS-associated coronavirus sherry - Human immunodeficiency virus [HIV] disease [facility] Forms: - Medication Reconciliation Form sherry - SBAR form [facility] Signatures: Dispatcher [employer] EDMS Janet Ag RN RN Nii Brantley MD MD cha Mickail, Joel, PA PA jmm Leal, Jahala RN RN jl7 Leodan Gabriel RN RN as6 Tahira Ryan RN RN jh6 Corrections: (The following items were deleted from the chart) 11:36 11:35 Meclizine 25 mg PO once [facility] 12:52 12:52 Allergies: No Known Allergies; jl7 jl7 13:34 11:57 PACKED RBC LEUKORED -1+BB.LAB.BRZ ordered. EDMS EDMS 13:34 11:57 ABO/RH typing ordered. EDMS EDMS 13:34 11:57 Antibody Screen ordered. EDMS EDMS 21:37 13:27 Telemetry/MedSurg (Inpatient) [facility] 21:37 13:27 [facility]
--- NOTE | 2021-11-14 13:28 | ER ---
Nurse's Notes [facility] Name: Dee Espinosa Age: 41 yrs Sex: Female : 1980 Arrival Date: 11/14/2021 Time: 10:40 Bed 3 Private MD: Diagnosis: Hypoxemia;Anemia, unspecified;Coronavirus infection, unspecified;Pneumonia due to SARS-associated coronavirus;Human immunodeficiency virus [HIV] disease Presentation: 11/14 11:45 Coronavirus screen: Vaccine status: Patient reports receiving the 2nd dose of the covid 6 vaccine. Onset of symptoms was November 01, 2021. Care prior to arrival: o2 nc 3lpm. 11:50 Ebola Screen: Patient negative for fever greater than or equal to 101.5 degrees jh6 Fahrenheit, and additional compatible Ebola Virus Disease symptoms Patient denies travel to an Ebola-affected area in the 21 days before illness onset. Initial Sepsis Screen: Does the patient meet any 2 criteria? RR > 20 per min. HR > 90 bpm. Yes Does the patient have a suspected source of infection? Yes: Productive cough/pneumonia. Risk Assessment: Do you want to hurt yourself or someone else? Patient reports no desire to harm self or others. 12:11 Acuity: EDUARD [address] [facility] 12:15 Chief complaint: Patient states: pt reports that she was dx with covid and over the [facility] last 3 days she has had a n increase in sob. 12:15 Method Of Arrival: EMS: [facility] Triage Assessment: 11:40 General: Appears distressed, uncomfortable, ill, Behavior is cooperative. Respiratory: [facility] Onset: The symptoms/episode began/occurred states that she was dx with covid x 12 days ago and states that over the last 3 days the sob has become worse.. 11:40 Respiratory: Reports shortness of breath cough that is labored breathing since [address] [facility] pain with cough the patient has moderate shortness of breath. 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 - Social history:: Patient uses , Smoking status: unknown. Screenin:10 Abuse screen: Denies threats or abuse. Nutritional screening: No deficits noted. jh6 Tuberculosis screening: No symptoms or risk factors identified. Fall Risk None identified. Assessment: 11:52 General: Appears distressed, ill, obese, Behavior is cooperative, pt moved from ems as6 stretcher to room 3 at this time.. Pain: Complains of pain in back and chest. Cardiovascular: Rhythm is sinus tachycardia. Respiratory: Airway is patent Respiratory effort is labored, Breath sounds with crackles bilaterally. in left lower lobe and right lower lobe. Vital Signs: 12:08 BP 117 / 87; Pulse 113; Resp 22; Pulse Ox 99% on 3 lpm NC; Pain 6/10; jh6 15:20 BP 123 / 89; Pulse 112; Resp 20; Temp 98.7(O); Pulse Ox 100% on 4 lpm NC; Pain 5/10; jh6 15:35 BP 111 / 90; Pulse 113; Resp 20; Temp 98.6; Pulse Ox 100% on 4 lpm NC; jh6 16:10 BP 127 / 94; Pulse 110; Resp 18; Temp 98.6; Pulse Ox 100% on 4 lpm NC; Pain 5/10; jh6 Vitals: 12:08 Cardiac Rhythm Assessment Sinus rhythm Sinus tach. 6 ED Course: 10:40 Patient arrived in ED. jl7 10:48 Nii Baltazar MD is Attending Physician. [facility] 11:15 Leodan Gabriel, ERIC is Primary Nurse. as6 11:40 X-ray(s) taken. Inserted saline lock: 20 gauge in right antecubital area, using aseptic [facility] technique. 11:40 Placed in gown. Bed in low position. Call light in reach. 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 Pulse ox on. NIBP on. jh6 11:45 Arm band placed on right wrist. jh6 12:09 XRAY Chest (1 view) In Process Unspecified. EDMS 12:[address] Patient moved to radiology. jh6 12:11 Triage completed. jh6 12:18 CT Chest For PE Angio In Process Unspecified. EDMS 12:40 US Extremity Venous W Compression Gm In Process Unspecified. EDMS 12:53 T\T\S collected, blood band applied to patient. jl7 13:24 Archie Wesley MD is Hospitalizing Provider. [facility] 14:33 Tahira Ryan, ERIC is Primary Nurse. 6 15:49 IV discontinued, intact, bleeding controlled, No redness/swelling at site. iv taken out 6 after unable to flush prior to meds given. no redness or swelling noted to site. 15:50 Inserted saline lock: 20 gauge in left antecubital area, using aseptic technique. jh6 15:50 Inserted saline lock: 18 gauge in right upper arm, using aseptic technique. 6 16:20 Lipid Profile Sent. 6 Administered Medications: 11:36 CANCELLED (Duplicate Order): Meclizine [address] [facility] 11:50 Drug: morphine 2 mg Route: IVP; Site: right antecubital; jl7 11:51 Drug: NS 0.9% 1000 ml Route: IV; Rate: 125 ml/hr; Site: right antecubital; as6 11:51 Drug: Zofran (Ondansetron) 4 mg Route: IVP; Site: right upper arm; as6 11:51 Drug: morphine 2 mg Route: IVP; Site: right antecubital; as6 13:00 Follow up: Response: Pain is decreased 6 11:52 Drug: Pepcid (famotidine) 20 mg Route: IVP; Site: right antecubital; as6 12:53 Drug: ProTONIX (pantoprazole) 40 mg Route: IVP; Site: right antecubital; jl7 15:30 Drug: SOLU-Medrol (methylPrednisoLONE) 125 mg Route: IVP; Site: right antecubital; jh6 16:19 Follow up: Response: No adverse reaction [facility] 15:30 Drug: Potassium Effervescent Tablet 25 mEq Route: PO; jh6 16:18 Follow up: Response: No adverse reaction 6 15:48 Drug: Rocephin (cefTRIAXone) 1 grams Route: IV; Rate: per protocol; Site: left [facility] antecubital; 16:00 Follow up: Response: No adverse reaction; IV Status: Completed infusion 6 16:00 Drug: Ketorolac 30 mg Route: IVP; Site: left antecubital; 6 16:20 Drug: Zithromax (azithromycin) 500 mg Route: IVPB; Infused Over: 1 hrs; Site: left [facility] antecubital; Outcome: 13:27 Decision to Hospitalize by Provider. sheryr 11/15 12:18 Patient left the ED. eb Signatures: Dispatcher [employer] EDNii Churchill MD MD cha Leal, Jahala RN RN jl7 Roxi Garcia Ashby RN RN as6 Tahira Ryan RN RN jh6 Corrections: (The following items were deleted from the chart) 11/14 12:52 12:52 Allergies: No Known Allergies; becka jovel
[2021-11-14] MEDS ORDERED: ACETAMINOPHEN 500 MG TAB PO PRN (13:38)
[2021-11-14 14:18] LABS: Barbiturates NEGATIVE (NEGATIVE); Benzodiazepines NEGATIVE (NEGATIVE); Cocaine NEGATIVE (NEGATIVE); METHAMPHETAM NEGATIVE (NEGATIVE); Methadone NEGATIVE (NEGATIVE); Opiates POSITIVE (NEGATIVE); Phencyclidine NEGATIVE (NEGATIVE); THC Cannibis POSITIVE (NEGATIVE)
[2021-11-14] MEDS ORDERED: METHYLPREDNISOLONE 125 MG INJ ONE ×2 (14:55→22:43)
[2021-11-14] MEDS ORDERED: CEFTRIAXONE 1000 MG/VIAL ONE (14:55)
[2021-11-14] MEDS ORDERED: POTASSIUM 25 MEQ EFFERV TAB ONE (14:56)
[2021-11-14] MEDS ORDERED: NA CHLORIDE 0.9% 50 ML ONE (14:56)
[2021-11-14] MEDS ORDERED: KETOROLAC 30 MG/ML INJ ONE (15:59)
[2021-11-14] MEDS ORDERED: AZITHROMYCIN 500 MG INJ IVPB ONE (16:01)
[2021-11-14] MEDS ORDERED: NA CHLORIDE 0.9% 250 ML ONE (16:02)
--- NOTE | 2021-11-14 17:03 | P.HP ---
Certification for Inpatient Patient admitted to: Observation With expected LOS: <2 Midnights Patient will require the following post-hospital care: None Practitioner: I am a practitioner with admitting privileges, knowledge of patient current condition, hospital course, and medical plan of care. Services: Services provided to patient in accordance with Admission requirements found in Title 42 Section 412.3 of the Code of Federal Regulations Patient History Date of Service: 11/14/21 Reason for admission: Shortness of breath History of Present Illness: Patient is a 41-year-old female comes to the hospital with difficulty breathing. Patient was also severely anemic with a hemoglobin of 6.4. Patient tested positive for COVID-19 pneumonia. Patient was bilateral interstitial infiltrates. Patient will be admitted to the hospital for IV steroid use. Patient will also be given 2 units of packed red blood cells. Patient is immunocompromised as she has a history of HIV. Would check HIV viral load and CD4 count as well. Patient be admitted for further treatment. Allergies risperidone [From Risperdal] Allergy (Verified 08/16/19 10:22) Anaphylaxis Home Medications: Alprazolam [Xanax] 2 mg PO BID PRN 08/03/13 Dextroamphetamine/Amphetamine [Amphetamine Salts 30 mg Tablet] 30 mg PO BID 02/28/15 Quetiapine Fumarate 400 mg PO BEDTIME 02/28/15 Abacavir/Dolutegravir/Lamivudi [Triumeq 600-50-300 mg Tablet] 1 each PO DAILY 08/16/19 Fluoxetine HCl [Prozac] 20 mg PO DAILY 08/16/19 Amox/Clavulanate [Augmentin 500-125 mg Tab*] 500 mg PO BID #10 tab 08/18/19 - Past Medical/Surgical History Diabetic: No -: Irritable bowel syndrome -: Persistent nausea/vomiting -: Depression/anxiety -: History of suicide attempt -: Arthritis -: Bipolar disorder -: HIV -: Cholecystectomy -: Tubal ligation Psychosocial/ Personal History: Unknown - Family History Mother Medical History: Cancer Notes: Colon - Social History Smoking Status: Current every day smoker Alcohol use: No CD- Drugs: No Caffeine use: Yes Review of Systems 10-point ROS is otherwise unremarkable Physical Examination - Vital Signs Temperature: 98 F Blood Pressure: 140/70 Pulse: 80 Respirations: 18 Pulse Ox (%): 95 - Physical Exam General: Alert, In no apparent distress, Oriented x3 HEENT: Atraumatic, PERRLA, Mucous membr. moist/pink, EOMI, Sclerae nonicteric Neck: Supple, 2+ carotid pulse no bruit, No LAD, Without JVD or thyroid abnormality Respiratory: Diminished, Rhonchi/gurgles Cardiovascular: Regular rate/rhythm, Normal S1 S2, No murmurs Gastrointestinal: Normal bowel sounds, Soft and benign, Non-distended, No tenderness Musculoskeletal: No clubbing, No swelling, No tenderness Integumentary: No rashes Neurological: Normal gait, Normal speech, Normal strength at 5/5 x4 extr, Normal tone, Sensation intact, Cranial nerves 3-12 intact, Normal affect Lymphatics: No axilla or inguinal lymphadenopathy - Studies Laboratory Data (last 24 hrs) 11/14/21 11:25: PT 14.7 H, INR 1.28 11/14/21 11:25: WBC 7.60, Hgb 6.4 L*, Hct 20.0 L*, Plt Count 435 H 11/14/21 11:25: Sodium 134 L, Potassium 3.1 L, BUN 11, Creatinine 0.58, Glucose 110 H, Magnesium 2.0, Total Bilirubin 0.3, AST 47 H, ALT 34, Alkaline Phosphatase 89 Assessment & Plan - Problems (Diagnosis) (1) Anemia due to acute blood loss Current Visit: Yes Status: Acute (2) Pneumonia due to COVID-19 virus Current Visit: Yes Status: Acute - Plan 1. Continue with IV steroids 2. Monitor inflammatory markers 3. Repeat chest x-ray is symptoms are progressively worsening 4. O2 per protocol 5. Transfuse 2 units of packed red blood cells 6. Continue with albuterol inhaler therapy; also supportive care 7. GI and DVT prophylaxis Discharge Plan: Home Plan to discharge in: Greater than 2 days - Advance Directives Does patient have a Living Will: No Does patient have a Durable POA for Healthcare: No - Code Status/Comfort Care Code Status Assessed: Yes Code Status: Full Code Critical Care: No Time Spent Managing PTS Care (In Minutes): 45
[2021-11-14] MEDS ORDERED: ACETAMINOPHEN 500 MG TAB ONE (17:14)
[2021-11-14] MEDS: ONDANSETRON 4 MG/2 ML VIAL IV PRN ×2 (17:22→21:56)
[2021-11-14] MEDS: MORPHINE 2 MG/ML SYR IV PRN ×2 (17:22→21:55)
[2021-11-14] MEDS ORDERED: APIXABAN 5 MG TABLET PO SCH (21:00)
[2021-11-14] MEDS: METHYLPREDNISOLONE 125 MG INJ IV SCH (22:50)
[2021-11-15] MEDS ORDERED: MORPHINE 2 MG/ML SYR ONE ×2 (02:45→06:56)
[2021-11-15] MEDS ORDERED: ONDANSETRON 4 MG/2 ML VIAL ONE ×2 (02:46→06:56)
[2021-11-15] MEDS: MORPHINE 2 MG/ML SYR IV PRN ×2 (02:51→06:55)
[2021-11-15] MEDS: ONDANSETRON 4 MG/2 ML VIAL IV PRN ×2 (02:52→06:55)
[2021-11-15 04:28] LABS: Absolute Lymphocytes (CBC) 0.5 K/uL (0.7-4.9); Hematocrit 34.6 % (36.0-45.0); MPV 7.4 fL (7.6-11.3); RBC Red Blood Cell Count 4.24 M/uL (3.86-4.86)
[2021-11-15 04:38] LABS: RBC Red Blood Cell Count 4.28 M/uL (3.86-4.86)
[2021-11-15 04:47] LABS: ALT/SGPT 52 U/L (12-78); AST/SGOT 60 U/L (15-37); Albumin 1.5 g/dL (3.4-5.0); Alkaline Phosphatase 86 U/L (45-117); BUN Blood Urea Nitrogen 15 mg/dL (7-18); Bicarbonate 26 mmol/L (21-32); Bilirubin Total 0.3 mg/dL (0.2-1.0); Ferritin 1075.8 ng/mL (8-388); Glucose Level 139 mg/dL (74-106); HDL Cholesterol 25 mg/dL (40-60); LDL Cholesterol, Calculated 51 (<130); Potassium 3.8 mmol/L (3.5-5.1); Protein, Total 7.1 g/dL (6.4-8.2); Sodium Level 137 mmol/L (136-145)
[2021-11-15 06:12] LABS: Magnesium 2.1 mg/dL (1.8-2.4)
[2021-11-15 06:26] VITALS: TEMP 98.4
[2021-11-15 08:48] VITALS: O2SAT 96
[2021-11-15] MEDS: METHYLPREDNISOLONE 125 MG INJ IV SCH (09:00)
[2021-11-15] MEDS ORDERED: METHYLPREDNISOLONE 125 MG INJ ONE (11:03)
[2021-11-15 15:53] VITALS: BP 106/80
--- NOTE | 2021-11-18 01:26 | P.DS ---
Discharge Date: 11/15/21 Disposition: ROUTINE DISCHARGE Discharge Condition: GOOD Reason for Admission: Shortness of breath - Problems (1) Anemia due to acute blood loss Status: Acute (2) Pneumonia due to COVID-19 virus Status: Acute Brief History of Present Illness: Patient is a 41-year-old female comes to the hospital with difficulty breathing. Patient was also severely anemic with a hemoglobin of 6.4. Patient tested positive for COVID-19 pneumonia. Patient was bilateral interstitial infiltrates. Patient will be admitted to the hospital for IV steroid use. Patient will also be given 2 units of packed red blood cells. Patient is immunocompromised as she has a history of HIV. Would check HIV viral load and CD4 count as well. Patient be admitted for further treatment. Hospital Course: Was transfused 2 units packed red blood cells in patient's hemoglobin is stable. At this time patient is stable for discharge home. Vital Signs/Physical Exam: Temp Pulse Resp BP Pulse Ox 98.4 F 79 19 106/80 99 11/15/21 12:00 11/15/21 12:00 11/15/21 12:00 11/15/21 12:00 11/15/21 12:00 General: Alert, In no apparent distress, Oriented x3 Laboratory Data at Discharge: WBC 5.20 K/uL (4.3-10.9) D 11/15/21 04:06 Hgb 11.4 g/dL (12.0-15.0) L D 11/15/21 04:06 Hct 34.6 % (36.0-45.0) L D 11/15/21 04:06 Plt Count 333 K/uL (152-406) D 11/15/21 04:06 PT 14.7 SECONDS (9.5-12.5) H 11/14/21 11:25 INR 1.28 11/14/21 11:25 Sodium 137 mmol/L (136-145) 11/15/21 04:06 Potassium 3.8 mmol/L (3.5-5.1) 11/15/21 04:06 BUN 15 mg/dL (7-18) 11/15/21 04:06 Creatinine 0.50 mg/dL (0.55-1.3) L 11/15/21 04:06 Glucose 139 mg/dL (74-106) H 11/15/21 04:06 Magnesium 2.1 mg/dL (1.8-2.4) 11/15/21 04:06 Total Bilirubin 0.3 mg/dL (0.2-1.0) 11/15/21 04:06 AST 60 U/L (15-37) H 11/15/21 04:06 ALT 52 U/L (12-78) 11/15/21 04:06 Alkaline Phosphatase 86 U/L (45-117) 11/15/21 04:06 Triglycerides 130 mg/dL (<150) 11/15/21 04:06 Cholesterol 102 mg/dL (<200) 11/15/21 04:06 HDL Cholesterol 25 mg/dL (40-60) L 11/15/21 04:06 Cholesterol/HDL Ratio 4.08 11/15/21 04:06 Home Medications: Alprazolam [Xanax] 2 mg PO BID PRN 08/03/13 Dextroamphetamine/Amphetamine [Amphetamine Salts 30 mg Tablet] 30 mg PO BID 02/28/15 Quetiapine Fumarate 400 mg PO BEDTIME 02/28/15 Abacavir/Dolutegravir/Lamivudi [Triumeq 600-50-300 mg Tablet] 1 each PO DAILY 08/16/19 Fluoxetine HCl [Prozac] 20 mg PO DAILY 08/16/19 Amox/Clavulanate [Augmentin 500-125 mg Tab*] 500 mg PO BID #10 tab 08/18/19 Ferrous Sulfate [Ferrous Sulfate Elixir] 5 ml PO BID #300 osyr 11/15/21 Hydrocodone 7.5/APAP 325 [[place] 7.5/325 mg] 1 tab PO Q8H PRN #30 tab 11/15/21 predniSONE [Prednisone*] 20 mg PO BID #15 tab 11/15/21 New Medications: Ferrous Sulfate [Ferrous Sulfate Elixir] 5 ml PO BID #300 osyr Hydrocodone 7.5/APAP 325 [[place] 7.5/325 mg] 1 tab PO Q8H PRN #30 tab PRN Reason: Pain predniSONE [Prednisone*] 20 mg PO BID #15 tab Physician Discharge Instructions: OK TO DC IV AND DC HOME FOLLOW-UP WITH PRIMARY CARE PROVIDER IN 1-2 WEEKS FOLLOW-UP WITH Hematology/GI IN 1-2 WEEKS RETURN TO THE ER IF symptoms worsen CALL or TEXT DR. MURPHY AT [phone] IF ANY QUESTIONS REGARDING HOSPITAL STAY. PLEASE CALL THE FLOOR AT [phone] IF ANY MEDICATION OR NURSING QUESTIONS. Diet: Regular Activity: Fall precautions Followup: NONE,NONE [Primary Care Provider] - Time spent managing pt's care (in minutes): 35
== END 2021-11-15 12:19 | disposition home or self-care (01) ==
LOC: ER 09:59 → ERHOLD 13:52
PROVIDERS: ADMIT Hospitalist; ATTEND Hospitalist
DX: U07.1 COVID-19 (principal); J12.82 Pneumonia due to coronavirus disease 2019; D62 Acute posthemorrhagic anemia; B20 Human immunodeficiency virus [HIV] disease; K58.9 Irritable bowel syndrome, unspecified; M19.90 Unspecified osteoarthritis, unspecified site; F32.A Depression, unspecified; F41.9 Anxiety disorder, unspecified; F31.9 Bipolar disorder, unspecified; F17.210 Nicotine dependence, cigarettes, uncomplicated; Z88.8 Allergy status to other drugs, medicaments and biological substances; Z90.49 Acquired absence of other specified parts of digestive tract; Z98.51 Tubal ligation status; Z80.0 Family history of malignant neoplasm of digestive organs
CPT/HCPCS: 93005; 87040 ×2; 87088; 85025 ×2; 87086; 80048; 36415; 86900; 83735 ×2; 86850; 87205 ×4; 85610; 85044; 80061; 86901; 85379 ×2; 80076; 83605; 87077 ×3; 87186 ×3; 84484; 82728 ×2; 82746; 82607; 83540; 80053; 83880 ×2; 80307; 86140 ×2; 71275; 71045; 93970; 99285; 86361; 87536; Q9967; C9113; J0456; J2270 ×6; G0378 ×2; P9016; J7050; J7030; J2930 ×3; J2405 ×5

== ENCOUNTER 2022-01-27 13:52 | Inpatient (IN) | payer OTHER ==
--- OUTSIDE RECORDS SUMMARY | 2022-01-27 13:56 | XMS REPORT | Continuity of Care Document ---
:[address] [facility] t Address [address] [place] [address] Care Team Providers Name Role Phone Carlene-Mbayo_A_AH Attending Clinician Unavailable Carlene-Mbayo_A_AH Admitting Clinician Unavailable Payers Payer Name Policy Type Policy Number Effective Date Expiration Date S rajiv [facility] - [id number] [facility] (MEDICARE REPLACEMENT/ADVANT AGE - HMO) Problems [...] 2021-03-15 2021-03-15 Outpatient Carlene-Mbayo [facility]FP [facility] [id number] 10:30:00 10:30:00 _A_AH [id number] Family Practic e 2020-01-04 2020-01-04 Outpatient Carlene-Mbayo [facility] [id number] [facility] 07:21:00 07:21:00 _A_AH [id number] Family Practic e 2020-01-04 2020-01-04 Outpatient Carlene-Mbayo [facility]FP [facility] [id number] [facility] 07:21:00 07:21:00 _A_AH [id number] Family Practic e Results This patient has no known results.
[2022-01-27 14:39] LABS: Urine Blood Negative (Negative); Urine Glucose Negative (Negative); Urine Protein 1+ (Negative); Urine pH 5.5 (5.0-7.0)
[2022-01-27] MEDS ORDERED: VANCOMYCIN 1 GM/VIAL ONE (14:39)
[2022-01-27] MEDS ORDERED: NA CHLORIDE 0.9% 100 ML IV ONE (14:40)
[2022-01-27] MEDS ORDERED: CEFEPIME 1 GM/VIAL ONE (14:40)
[2022-01-27] MEDS ORDERED: NA CHLORIDE 0.9% 0 ML ONE (14:41)
[2022-01-27 14:45] LABS: Absolute Lymphocytes (CBC) 0.5 K/uL (0.7-4.9); Hematocrit 19.5 % (36.0-45.0); Lymphocytes % 4.1 % (15.3-44.8); MPV 8.1 fL (7.6-11.3); RBC Red Blood Cell Count 2.36 M/uL (3.86-4.86)
[2022-01-27 14:53] LABS: Protime INR 1.27
[2022-01-27 15:00] LABS: Bilirubin Total 0.4 mg/dL (0.2-1.0); Protein, Total 7.1 g/dL (6.4-8.2)
[2022-01-27 15:09] LABS: Urine Bacteria <20 /HPF (<20); Urine Mucus 2+ /HPF (NONE SEEN)
[2022-01-27] MEDS ORDERED: NA CHLORIDE 0.9% 2,000 ML ONE (15:15)
[2022-01-27] MEDS ORDERED: ACETAMINOPHEN 500 MG TAB ONE (15:50)
--- NOTE | 2022-01-27 16:00 | RAD REPORT ---
EXAM DESCRIPTION: Yony Single View01/27/2022 3:39 pm CLINICAL HISTORY: Congestion COMPARISON: October 2021 FINDINGS: The lungs are mildly hazy. However there much improved from prior exam. Heart is normal si ze IMPRESSION: Improvement in bilateral pulmonary opacities. There probably are mild bilateral pulmonar y opacities which could indicate pulmonary edema or pneumonia
[2022-01-27] MEDS ORDERED: KCL 20 MEQ/100 mL IVPB 100 ML IV ONE (17:04)
[2022-01-27 17:34] LABS: Anisocytosis 1+; Blood Morphology Comment NOTED (NOT SEEN); Platelet Estimate INCR; Poikilocytosis 2+; White Blood Cell Scan OK (OK)
--- NOTE | 2022-01-27 18:45 | EDPHYS ---
Physician Documentation [facility] Name: Dee Espinosa Age: 41 yrs Sex: Female : 1980 Arrival Date: 01/27/2022 Time: 14:12 Bed 23 Private MD: ED Physician Sukhjinder Boston HPI: 01/27 18:47 This 41 yrs old Female presents to ER via EMS with complaints of weakness. kdr 18:47 EMS reports that the patient has been declining health for the past 6 months. Noted by kdr EMS to have a systolic pressure in the 70s. She was also noted to be febrile with a temperature of 100.7. Additionally her oxygen saturation was found to be 68% on room air.. 19:25 Generalized weakness for the past 6 months. Onset: The symptoms/episode began/occurred kdr at an unknown time. Severity of symptoms: At their worst the symptoms were mild moderate this morning, in the emergency department the symptoms are unchanged. It is unknown whether or not the patient has had similar symptoms in the past. It is unknown whether or not the patient has recently seen a physician. 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 - Social history:: Smoking status: Patient denies any tobacco usage or history of. ROS: 19:25 Unable to obtain ROS due to altered mental status. kdr 19:29 Constitutional: Patient is a poor historian due to her or mentation and communication kdr Exam: 19:25 Constitutional: This is a well developed, well nourished patient who is awake, alert, kdr and in no acute distress. Head/Face: Normocephalic, atraumatic. Eyes: Pupils equal round and reactive to light, extra-ocular motions intact. Lids and lashes normal. Conjunctiva and sclera are non-icteric and not injected. Cornea within normal limits. Periorbital areas with no swelling, redness, or edema. Neck: Trachea midline, no thyromegaly or masses palpated, and no cervical lymphadenopathy. Supple, full range of motion without nuchal rigidity, or vertebral point tenderness. No Meningismus. Chest/axilla: Normal chest wall appearance and motion. Nontender with no deformity. No lesions are appreciated. Cardiovascular: Regular rate and rhythm with a normal S1 and S2. No gallops, murmurs, or rubs. Normal PMI, no JVD. No pulse deficits. Abdomen/GI: Soft, non-tender, with normal bowel sounds. No distension or tympany. No guarding or rebound. No evidence of tenderness throughout. 19:25 Respiratory: mild respiratory distress is noted, Respirations: normal, Breath sounds: rales, that are mild, are scattered, are heard diffusely. 19:25 Abdomen/GI: Inspection: abdomen appears normal, Bowel sounds: active, Palpation: soft, mild abdominal tenderness, in all quadrants, Rectal exam: Stool: guaiac positive, hemorrhoid(s), are not appreciated, mass, is not appreciated. Vital Signs: 14:15 BP 79 / 55; Pulse 141; Resp 24; Temp 100.7; Pulse Ox 68% on R/A; Weight 54.88 kg; lr4 Height 5 ft. 1 in. (154.94 cm); Pain 10/10; 14:34 BP 77 / 52; Pulse 132; Resp 18; Pulse Ox 99% on 15% Non-rebreather mask; Pain 10/10; lr4 14:53 BP 81 / 49; Pulse 122; Resp 24; Pulse Ox 100% on 15% Non-rebreather mask; Pain 10/10; lr4 15:30 BP 95 / 57; Pulse 113; Resp 28; Pulse Ox 98% on 15% Non-rebreather mask; Pain 10/10; lr4 15:31 BP 87 / 58; Pulse 115; Resp 30; Temp 99.3; Pulse Ox 100% on 15% Non-rebreather mask; lr4 16:52 BP 88 / 58; Pulse 104; Resp 28; Temp 99.0(O); Pulse Ox 100% ; lr4 19:00 BP 87 / 65; Pulse 95; Resp 30; Pulse Ox 100% on 15% Non-rebreather mask; lr4 19:15 BP 84 / 63; Pulse 92; Resp 28; Pulse Ox 100% on 15% Non-rebreather mask; lr4 19:17 BP 86 / 50; Pulse 93; lr4 19:21 BP 84 / 63; Pulse 92; Pulse Ox 100% ; lr4 19:45 BP 91 / 71; Pulse 90; Pulse Ox 100% on 15% Non-rebreather mask; lr4 20:04 BP 88 / 56; Pulse 91; Resp 35 S; Pulse Ox 100% on 15% Non-rebreather mask; as6 20:15 BP 89 / 64; Pulse 92; Pulse Ox 100% on 15% Non-rebreather mask; lr4 20:33 BP 92 / 67; Pulse 88; Resp 28; Pulse Ox 100% ; lr4 20:45 BP 100 / 77; Pulse 82; Resp 28; Pulse Ox 100% on 15% Non-rebreather mask; lr4 20:58 BP 111 / 82; Pulse 82; Resp 28; lr4 21:28 BP 104 / 73; Pulse 83; Resp 28; Pulse Ox 100% ; lr4 22:27 BP 115 / 85; Pulse 77; Resp 30; Temp 97.5; Pulse Ox 100% on 15% Non-rebreather mask; lr4 14:15 Body Mass Index 22.86 (54.88 kg, 154.94 cm) lr4 Procedures: 18:42 Central Line: the site was prepped with Betadine, in sterile fashion, a triple lumen cp catheter was inserted, in the right femoral vein, in 1 attempts. placement was verified, by blood return, the site was dressed with using sterile technique, the patient tolerated the procedure, well. MDM: 18:43 Patient medically screened. kdr 19:25 Data reviewed: vital signs, nurses notes, lab test result(s), radiologic studies. kdr Counseling: I had a detailed discussion with the patient and/or guardian regarding: the historical points, exam findings, and any diagnostic results supporting the discharge/admit diagnosis, lab results, radiology results, the need for further work-up and treatment in the hospital. Physician consultation: Benjamin Cabral MD and will see patient in unit, tomorrow. 01/27 14:14 Order name: Blood Culture Adult (2) kdr 01/27 14:14 Order name: CBC with Diff; Complete Time: 17:36 kdr 01/27 14:14 Order name: CMP; Complete Time: 16:43 kdr 01/27 14:14 Order name: Lactate; Complete Time: 16:43 [facility] 01/27 14:14 Order name: Protime (+inr); Complete Time: 16:43 [facility] 01/27 14:14 Order name: Ptt, Activated; Complete Time: 16:43 [facility] 01/27 14:14 Order name: Urine Microscopic Only; Complete Time: 16:43 [facility] 01/27 14:14 Order name: Blood Culture [facility] 01/27 14:14 Order name: Urine Culture [facility] 01/27 14:38 Order name: Urine Dipstick-Ancillary; Complete Time: 16:43 [facility] 01/27 14:39 Order name: Urine --Ancillary (enter results); Complete Time: 16:43 01/27 14:50 Order name: PRBC [facility] 01/27 14:50 Order name: ABO/RH typing [facility] 01/27 14:14 Order name: Chest Single View XRAY; Complete Time: 16:43 [facility] 01/27 14:50 Order name: Antibody Screen [facility] 01/27 14:55 Order name: Bb Add On 01/27 14:57 Order name: Glucose, Ancillary Testing; Complete Time: 16:43 [facility] 01/27 16:27 Order name: COVID-19 SARS RT PCR (Document "Date of Onset" if Symptomatic) jl7 01/27 16:28 Order name: SARS-COV-2 RT PCR; Complete Time: 18:09 [facility] 01/27 17:35 Order name: CBC Smear Scan; Complete Time: 17:36 [facility] 01/27 18:02 Order name: Chest Abdomen Pelvis Wo Con CT; Complete Time: 19:23 la1 01/27 19:23 Order name: Lipase la1 01/27 19:24 Order name: Troponin High Sensitivity mi1 01/27 19:24 Order name: Lipase; Complete Time: 20:42 [facility] 01/27 19:24 Order name: Troponin High Sensitivity; Complete Time: 20:42 EDCA 01/27 19:43 Order name: ABG; Complete Time: 20:42 jr8 01/27 14:14 Order name: Accucheck; Complete Time: 14:49 [facility] 01/27 14:14 Order name: Cardiac monitoring; Complete Time: 14:25 [facility] 01/27 14:14 Order name: EKG - Nurse/Tech; Complete Time: 14:25 [facility] 03/14 14:14 Order name: IV Saline Lock - Large Bore; Complete Time: 15:26 kdr 01/27 14:14 Order name: Labs collected and sent; Complete Time: 15:26 kdr 01/27 14:14 Order name: O2 Per Protocol; Complete Time: 15:26 kdr 01/27 14:14 Order name: O2 Sat Monitoring; Complete Time: 15:26 kdr 01/27 14:14 Order name: Urine Dipstick-Ancillary (obtain specimen); Complete Time: 14:49 kdr 01/27 14:14 Order name: Melendez; Complete Time: 14:31 kdr Administered Medications: 14:51 Drug: Cefepime 1 grams Route: IVPB; Rate: 200 ml/hr; Infused Over: 30 mins; Site: right lr4 antecubital; 15:25 Follow up: IV Status: Completed infusion; IV Intake: 100ml lr4 15:25 Drug: NS 0.9% (30 ml/kg) 30 ml/kg Route: IV; Rate: bolus; Site: left antecubital; lr4 15:51 Follow up: IV Status: Infusion continued lr4 16:31 Follow up: IV Intake: 1700ml lr4 15:25 Drug: vancoMYCIN 1 grams Route: IVPB; Infused Over: 2 hrs; Site: right antecubital; lr4 16:30 Follow up: IV Status: Completed infusion lr4 15:51 Drug: Acetaminophen 1000 mg Route: PO; lr4 16:31 Follow up: Response: Temperature is decreased lr4 17:22 Drug: Potassium Chloride 20 mEq Route: IV; Rate: calculated rate; Site: left lr4 antecubital; 19:03 Follow up: IV Status: Completed infusion; IV Intake: 100ml lr4 19:16 Drug: Levophed (norepinephrine) (4 mg/250 mL D5W 4 mcg/min Route: IV; Rate: calculated lr4 rate; Site: Other; 19:17 Follow up: BP 86 / 50; Pulse 93 bpm; Rate change 2 mcg/min lr4 20:27 Follow up: Rate change 4 mcg/min; IV Status: Infusion continued lr4 19:36 Drug: ProTONIX (pantoprazole) 8 mg/hr Route: IV; Rate: 25 ml/hr; Site: right femoral; as6 20:27 Follow up: Response: No adverse reaction; IV Status: Infusion continued lr4 19:36 Drug: ProTONIX (pantoprazole) 40 mg Route: IVP; Site: right femoral; as6 20:27 Follow up: Response: No adverse reaction lr4 Disposition: 19:25 Co-signature as Attending Physician, Sukhjinder Boston MD I agree with the assessment and kdr plan of care. Disposition Summary: 01/27/22 18:43 Hospitalization Ordered Hospitalization Status: Inpatient Admission kdr Provider: Ari Sexton Location: Intensive Care Unit kdr Condition: Critical kdr Problem: new kdr Symptoms: have improved kdr Bed/Room Type: Standard kdr Room Assignment: 3-(01/27/22 20:20) mw Diagnosis - Weakness kdr - Anemia, unspecified kdr - GI Bleed kdr - HIV kdr - Hypotension, unspecified kdr Forms: - Medication Reconciliation Form kdr - SBAR form kdr Signatures: Dispatcher [employer] EDMS Janet Ag RN Sukhjinder Pop MD MD kdr Leti, Morgan, REGISTERED NURSE FIRST ASSISTANT-C REGISTERED NURSE FIRST ASSISTANT-Cla1 Nii Burgos PA PA cp Slawson, Ashby, RN RN as6 Lisbet Jensen RN RN lr4 Corrections: (The following items were deleted from the chart) 15:44 14:50 TYPE AND SCREEN+[id number].BRZ ordered. EDMS EDMS 20:20 18:43 kdr mw
--- NOTE | 2022-01-27 18:45 | ER ---
Nurse's Notes [facility] Name: Dee Espinosa Age: 41 yrs Sex: Female : 1980 Arrival Date: 01/27/2022 Time: 14:12 Bed 23 Private MD: Diagnosis: Weakness;Anemia, unspecified;GI Bleed;HIV;Hypotension, unspecified Presentation: 01/27 14:20 Chief complaint: Patient states: Pt bib ems from home for hx of HIV, for declining lr4 health the past 6 months. Upon EMS arrival pt was hypotensive in the 70s sys, febrile at 100.7,and sat low at 68% on room air. EMS start 20g LAC and started a fluid bolus and bp responded to bolus. Coronavirus screen: Vaccine status: Patient reports being unvaccinated. diarrhea, fatigue, fever, muscle pain, nausea, shortness of breath, Client presents with at least one sign or symptom that may indicate coronavirus-19. Ebola Screen: Patient negative for fever greater than or equal to 101.5 degrees Fahrenheit, and additional compatible Ebola Virus Disease symptoms. Initial Sepsis Screen: Does the patient meet any 2 criteria? RR > 20 per min. Systolic BP < 90 mmHg. Mean Arterial Pressure (MAP) < 65. HR > 90 bpm. Yes Does the patient have a suspected source of infection? Yes: Dysuria/Frequency/Urgency/UTI Acute abdominal pain. Risk Assessment: Do you want to hurt yourself or someone else? Patient reports no desire to harm self or others. 14:20 Method Of Arrival: EMS: [facility] lr4 14:20 Note Pt states she has felt ill over the past 6 months, but worse today. Onset of lr4 symptoms was August 2021. 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 - Social history:: Smoking status: Patient denies any tobacco usage or history of. Screenin:37 Abuse screen: Denies threats or abuse. Nutritional screening: No deficits noted. lr4 Tuberculosis screening: No symptoms or risk factors identified. Fall Risk No fall in past 12 months (0 pts). Secondary diagnosis (15 points) IV access (20 points). Ambulatory Aid- None/Bed Rest/Nurse Assist (0 pts). Gait- Normal/Bed Rest/Wheelchair (0 pts) Mental Status- Oriented to own ability (0 pts). Total Thomas Fall Scale indicates Low Risk Score (25-44 pts). Placed close to Nursing Station Frequent Obs/Assesments occuring As available Patient and Family Educated on Fall Prevention Program and strategies. Assessment: 14:20 General: Appears distressed, uncomfortable, ill, Behavior is calm, cooperative, lr4 anxious, fussy, Reports chills for fever for feeling ill for fatigue for. Pain: Complains of pain in abdomen Pain radiates to back Pain currently is 10 out of 10 on a pain scale. 14:20 Neuro: No deficits noted. Cardiovascular: Reports fatigue, Heart tones S1 S2 Capillary lr4 refill < 3 seconds in bilateral Patient's skin is warm and dry. Pulses are all present. Rhythm is sinus tachycardia. Respiratory: Reports shortness of breath at rest Airway is patent Respiratory effort is even, unlabored, Respiratory pattern is regular, symmetrical, tachypnea tachypneic transiently Breath sounds are clear bilaterally. Breath sounds are diminished Onset: The symptoms/episode began/occurred 3-6 months, worse today. GI: Abdomen is flat, non-distended, Bowel sounds present X 4 quads. Abdomen is tender to palpation Abdomen has rebound tenderness X 4 quads. Reports lower abdominal pain, upper abdominal pain, cramping, diarrhea, nausea. Musculoskeletal: Reports weakness in right arm, left arm, right leg and left leg. 19:22 Reassessment: Patient is alert, oriented x 3, equal unlabored respirations, skin lr4 warm/dry/pink. Patient states symptoms have improved. 20:41 Reassessment: attempted report, nurse is busy will try again in 15 min. lr4 21:11 General: Contacted [facility] Transfer Center. tw5 21:36 General: [facility] denies. No capacity . tw5 Vital Signs: 14:15 BP 79 / 55; Pulse 141; Resp 24; Temp 100.7; Pulse Ox 68% on R/A; Weight 54.88 kg; lr4 Height 5 ft. 1 in. (154.94 cm); Pain 10/10; 14:34 BP 77 / 52; Pulse 132; Resp 18; Pulse Ox 99% on 15% Non-rebreather mask; Pain 10/10; lr4 14:53 BP 81 / 49; Pulse 122; Resp 24; Pulse Ox 100% on 15% Non-rebreather mask; Pain 10/10; lr4 15:30 BP 95 / 57; Pulse 113; Resp 28; Pulse Ox 98% on 15% Non-rebreather mask; Pain 10/10; lr4 15:31 BP 87 / 58; Pulse 115; Resp 30; Temp 99.3; Pulse Ox 100% on 15% Non-rebreather mask; lr4 16:52 BP 88 / 58; Pulse 104; Resp 28; Temp 99.0(O); Pulse Ox 100% ; lr4 19:00 BP 87 / 65; Pulse 95; Resp 30; Pulse Ox 100% on 15% Non-rebreather mask; lr4 19:15 BP 84 / 63; Pulse 92; Resp 28; Pulse Ox 100% on 15% Non-rebreather mask; lr4 19:17 BP 86 / 50; Pulse 93; lr4 19:21 BP 84 / 63; Pulse 92; Pulse Ox 100% ; lr4 19:45 BP 91 / 71; Pulse 90; Pulse Ox 100% on 15% Non-rebreather mask; lr4 20:04 BP 88 / 56; Pulse 91; Resp 35 S; Pulse Ox 100% on 15% Non-rebreather mask; as6 20:15 BP 89 / 64; Pulse 92; Pulse Ox 100% on 15% Non-rebreather mask; lr4 20:33 BP 92 / 67; Pulse 88; Resp 28; Pulse Ox 100% ; lr4 20:45 BP 100 / 77; Pulse 82; Resp 28; Pulse Ox 100% on 15% Non-rebreather mask; lr4 20:58 BP 111 / 82; Pulse 82; Resp 28; lr4 21:28 BP 104 / 73; Pulse 83; Resp 28; Pulse Ox 100% ; lr4 22:27 BP 115 / 85; Pulse 77; Resp 30; Temp 97.5; Pulse Ox 100% on 15% Non-rebreather mask; lr4 14:15 Body Mass Index 22.86 (54.88 kg, 154.94 cm) lr4 ED Course: 14:12 Patient arrived in ED. bd 14:12 Sukhjinder Boston MD is Attending Physician. kdr 14:25 EKG done, by ED staff, reviewed by Sukhjinder Boston MD. Inserted saline lock: 20 gauge in mb7 right antecubital area, using aseptic technique. 14:31 Lisbet Jensen, RN is Primary Nurse. lr4 14:40 Urine Culture Sent. mb7 14:41 Blood Culture Adult (2) Sent. mb7 14:49 Urine Microscopic Only Sent. mb7 14:50 Blood Culture Sent. mb7 15:25 Bb Add On Sent. lr4 15:25 Chest Single View XRAY Sent. lr4 15:26 No provider procedures requiring assistance completed. Inserted saline lock: 20 gauge lr4 in left antecubital area, using aseptic technique. by EMS. 15:37 Triage completed. lr4 15:37 Arm band placed on right wrist. lr4 15:38 Patient has correct armband on for positive identification. Bed in low position. Call lr4 light in reach. Side rails up X2. night monitor on. Pulse ox on. NIBP on. Door closed. Noise minimized. Warm blanket given. PO fluids given. Verbal reassurance given. Head of bed. 15:39 Chest Single View XRAY In Process Unspecified. EDMS 16:32 COVID-19 SARS RT PCR (Document "Date of Onset" if Symptomatic) Sent. lr4 18:42 Ari Sexton MD is Hospitalizing Provider. kdr 18:56 Chest Abdomen Pelvis Wo Con CT In Process Unspecified. EDMS 19:06 Assisted provider with central line placement. Set up central line tray. Triple lumen lr4 line placed in right femoral. Line placed by Nii LOWE Placement verified by CXR, Dressed with 4X4s, Tape, Tegaderm, biopatch Patient tolerated well. Before procedure, did Practitioner(s) obtain informed consent? Yes. Patient \\T\\ family education about procedure, CLABSI prevention and S/S of infection? Yes. Inserted central line triple lumen placed by Nii lowe \\T\\ [id number]. 19:36 Lipase Sent. as6 19:36 Troponin High Sensitivity Sent. as6 19:36 Lipase Sent. as6 19:36 Troponin High Sensitivity Sent. as6 20:09 Notified ED physician of a critical lab result(s). troponin 103.6. tw5 22:26 Patient admitted, IV remains in place. lr4 Administered Medications: 14:51 Drug: Cefepime 1 grams Route: IVPB; Rate: 200 ml/hr; Infused Over: 30 mins; Site: right lr4 antecubital; 15:25 Follow up: IV Status: Completed infusion; IV Intake: 100ml lr4 15:25 Drug: NS 0.9% (30 ml/kg) 30 ml/kg Route: IV; Rate: bolus; Site: left antecubital; lr4 15:51 Follow up: IV Status: Infusion continued lr4 16:31 Follow up: IV Intake: 1700ml lr4 15:25 Drug: vancoMYCIN 1 grams Route: IVPB; Infused Over: 2 hrs; Site: right antecubital; lr4 16:30 Follow up: IV Status: Completed infusion lr4 15:51 Drug: Acetaminophen 1000 mg Route: PO; lr4 16:31 Follow up: Response: Temperature is decreased lr4 17:22 Drug: Potassium Chloride 20 mEq Route: IV; Rate: calculated rate; Site: left lr4 antecubital; 19:03 Follow up: IV Status: Completed infusion; IV Intake: 100ml lr4 19:16 Drug: Levophed (norepinephrine) (4 mg/250 mL D5W 4 mcg/min Route: IV; Rate: calculated lr4 rate; Site: Other; 19:17 Follow up: BP 86 / 50; Pulse 93 bpm; Rate change 2 mcg/min lr4 20:27 Follow up: Rate change 4 mcg/min; IV Status: Infusion continued lr4 19:36 Drug: ProTONIX (pantoprazole) 8 mg/hr Route: IV; Rate: 25 ml/hr; Site: right femoral; as6 20:27 Follow up: Response: No adverse reaction; IV Status: Infusion continued lr4 19:36 Drug: ProTONIX (pantoprazole) 40 mg Route: IVP; Site: right femoral; as6 20:27 Follow up: Response: No adverse reaction lr4 Intake: 15:25 IV: 100ml; Total: 100ml. lr4 16:31 IV: 1700ml; Total: 1800ml. lr4 19:03 IV: 100ml; Total: 1900ml. lr4 Outcome: 18:43 Decision to Hospitalize by Provider. kdr 21:28 Condition: stable lr4 22:26 Instructed on the need for admit. lr4 22:26 Admitted to ICU accompanied by nurse, accompanied by tech, via stretcher, with oxygen, lr4 on monitor, with chart, Report called to Mirian REYES 23:17 Patient left the ED. as6 Signatures: Dispatcher [employer] EDMS Mirta Andrews Kevin, MD MD kdr Shelley Beal tw5 Leodan Gabriel, RN RN as6 Xochitl Evangelista mb7 Lisbet Jensen, RN RN lr4
[2022-01-27] MEDS ORDERED: NOREPINEPHRINE 4mg/D5W 250mL 4 MG/250 ML BAG IV ONE (18:51)
--- NOTE | 2022-01-27 19:20 | RAD REPORT ---
EXAM DESCRIPTION: CT - Chest Abd Pelvis Wo Con - 01/27/2022 6:57 pm CLINICAL HISTORY: Chest and abdominal pain/sepsis COMPARISON: CT abdomen 2014 TECHNIQUE: Computed axial tomography of the chest, abdomen and pelvis was obtained. Oral contrast wa s given. IV contrast was not requested. All CT scans are performed using dose optimization technique as appropriate and may include automated exposure control or mA/KV adjustment according to patient size. FINDINGS: The evaluation of mediastinum, khurram, vessels and solid organs is limited secondary to the lack of IV contrast administration Mild to moderate bilateral patchy mostly ground-glass opacities within the lungs. Mild left lower lob e consolidation. No mediastinal or hilar lymphadenopathy is seen. Small left pleural effusion. . A pericardial effusion is not seen. A lung consolidation is not present. The lungs are essentially clear. The liver, spleen, adrenals and kidneys appear grossly normal The pancreas is normal size. Mild peripancreatic stranding. No pseudocyst There is no evidence of diverticulitis. Normal appendix. Melendez catheter within the bladder Cholecystectomy A right femoral line with its tip in the IVC IMPRESSION: Mild to moderate bilateral ground-glass opacities. Mild left lower lobe consolidation These findings probably indicate pneumonia Mild peripancreatic stranding probably a mild pancreatitis
[2022-01-27] MEDS ORDERED: PANTOPRAZOLE 40 MG INJ ONE (19:29)
[2022-01-27] MEDS ORDERED: NA CHLORIDE 0.9% 250 ML ONE (19:29)
[2022-01-27 20:10] LABS: Troponin High Sensitivity 103.6 pg/mL (<58.9)
[2022-01-27 20:16] LABS: Arterial Blood Carboxyhemoglob 0.9 % (0-1.5); Blood Gas Oxyhemoglobin 95.1 % (94-97); Blood O2 Saturation 97.5 % (92-98.5)
--- NOTE | 2022-01-27 20:40 | P.HP ---
Certification for Inpatient Patient admitted to: Inpatient With expected LOS: >2 Midnights Patient will require the following post-hospital care: None Practitioner: I am a practitioner with admitting privileges, knowledge of patient current condition, hospital course, and medical plan of care. Services: Services provided to patient in accordance with Admission requirements found in Title 42 Section 412.3 of the Code of Federal Regulations Patient History Date of Service: 01/27/22 Reason for admission: Septic shock, GI bleed History of Present Illness: 41-year-old female with history of HIV, medical noncompliance and anemia presents the emergency department for shortness of breath, weakness, low blood pressure. She lives with her son at home and she reports that over the course of the last 6 months she has been declining medically, significantly worse last few days. Patient was hypoxic on room air with saturations in the 60s upon arrival of EMS also significantly hypotensive with blood pressures in the 70s systolic. Patient was brought to the emergency department volume resuscitated with IV fluids and evaluated. Her labs were significant for normocytic anemia with hemoglobin of 6.4 hematocrit of 19.5 she is in acute renal failure creatinine 1.96 and GFR of 28 mild elevation high-sensitivity troponin chest x-ray demonstrates suspected pneumonia CT chest abdomen pelvis without IV contrast suggests mild to moderate bilateral groundglass opacities mild left lower lobe consolidation indicating suspected pneumonia also mild peripancreatic stranding probably mild pancreatitis. Lipase was obtained which was normal. Patient still is hypotensive after receiving fluid bolus was started on Levophed in the emergency department as well as broad-spectrum antibiotics cefepime/vancomycin. Lactic acid was 1.2, patient is also guaiac positive. ER provider discussed case with GI who will be available for consult for patient tomorrow. Patient received blood transfusion at this time. Will admit to the ICU for further evaluation and management. Did also discuss case with patient's son Spencer phone #[phone] regarding her current medical condition which is serious. Allergies risperidone [From Risperdal] Allergy (Verified 08/16/19 10:22) Anaphylaxis Home Medications: Alprazolam [Xanax] 2 mg PO BID PRN 08/03/13 Dextroamphetamine/Amphetamine [Amphetamine Salts 30 mg Tablet] 30 mg PO BID 02/28/15 Quetiapine Fumarate 400 mg PO BEDTIME 04/15/15 Abacavir/Dolutegravir/Lamivudi [Triumeq 600-50-300 mg Tablet] 1 each PO DAILY 08/16/19 Fluoxetine HCl [Prozac] 20 mg PO DAILY 08/16/19 Amox/Clavulanate [Augmentin 500-125 mg Tab*] 500 mg PO BID #10 tab 08/18/19 Ferrous Sulfate [Ferrous Sulfate Elixir] 5 ml PO BID #300 osyr 11/15/21 Hydrocodone 7.5/APAP 325 [[place] 7.5/325 mg] 1 tab PO Q8H PRN #30 tab 11/15/21 predniSONE [Prednisone*] 20 mg PO BID #15 tab 11/15/21 - Past Medical/Surgical History Diabetic: No -: Irritable bowel syndrome -: Persistent nausea/vomiting -: Depression/anxiety -: History of suicide attempt -: Arthritis -: Bipolar disorder -: HIV -: Cholecystectomy -: Tubal ligation Psychosocial/ Personal History: Unknown - Family History Mother -: Cancer Notes: Colon - Social History Smoking Status: Unknown if ever smoked Alcohol use: No CD- Drugs: No Caffeine use: Yes Place of Residence: Home Review of Systems 10-point ROS is otherwise unremarkable General: Weakness, Malaise Respiratory: Cough, Shortness of Breath Gastrointestinal: Nausea, Abdominal Pain Physical Examination - Physical Exam General: Alert, In no apparent distress, Oriented x3 HEENT: Atraumatic, PERRLA, Mucous membr. moist/pink, EOMI, Sclerae nonicteric Neck: Supple, 2+ carotid pulse no bruit, No LAD, Without JVD or thyroid abnorm ality Respiratory: Diminished Cardiovascular: Regular rate/rhythm, Normal S1 S2 Capillary refill: <2 Seconds Gastrointestinal: Tenderness (Mild to moderate generalized abdominal tenderness) Musculoskeletal: No tenderness Integumentary: No rashes Neurological: Normal speech, Normal strength at 5/5 x4 extr, Normal tone, Normal affect - Studies Laboratory Data (last 24 hrs) 01/27/22 19:34: Lipase 298 01/27/22 14:10: PT 14.0 H, INR 1.27, APTT 34.8 01/27/22 14:10: Sodium 133 L, Potassium 3.0 L, BUN 61 H, Creatinine 1.96 H, Glucose 113 H, Total Bilirubin 0.4, AST 97 H, ALT 53, Alkaline Phosphatase 139 H 01/27/22 14:10: WBC 11.00 H, Hgb 6.4 L*, Hct 19.5 L*, Plt Count 402 Assessment and Plan - Plan Assessment: Septic shock secondary to bilateral pneumonia Normocytic anemia, suspected GI bleed Acute renal failure History of HIV noncompliant with medications Plan: Septic shock secondary to bilateral pneumonia: Patient was fluid resuscitated in the emergency department with 30 cc/kg bolus, was still hypotensive with systolic blood pressure less than 90 therefore started on vasopressor therapy with Levophed. Patient was also given vancomycin/cefepime. Pulmonology, infectious disease consulted given patient's history of HIV, medical noncompliance and septic shock. Limited to the ICU, ABG was obtained, patient is responding well to verbal stimulus at this time. Discussed case with both mynor parker and her son Spencer [phone], they are both aware that she is very ill at this time. Normocytic anemia, suspected GI bleed: GI was consulted by the emergency depart ment provider while she was in the ER as her stool was guaiac positive and hemoglobin was initially low at 6.5. There is an order for blood transfusion at this time will obtain posttransfusion H&H. Continue Protonix drip throughout the evening. N.p.o. There is also some peripancreatic stranding noted on CT Will trend lipase level. Acute renal failure: Nephrology consulted, renal ultrasound ordered, continue IV fluid, vasopressors at the evening. History of HIV noncompliant with medications: Infectious disease consulted for additional assistance. DVT PPX: SCD Code status: Full Discharge Plan: Home Plan to discharge in: Greater than 2 days - Advance Directives Does patient have a Living Will: No Does patient have a Durable POA for Healthcare: No - Code Status/Comfort Care Code Status Assessed: Yes (Full) Critical Care: No Time Spent Managing Pts Care (In Minutes): 55
[2022-01-27] MEDS ORDERED: NOREPINEPHRINE 4 MG in D5W 250 ML IV SCH (21:00)
[2022-01-27] MEDS: PANTOPRAZOLE INJ 80 MG in NA CHLORIDE 0.9% 250 ML IV SCH (21:00)
[2022-01-27] MEDS: CEFEPIME 1 GM in NA CHLORIDE 0.9% 100 ML IV SCH (21:00)
[2022-01-27 23:20] VITALS: BMI 23.8
[2022-01-27] MEDS: dexAMETHasone 10 MG/ML VIAL IV SCH (23:36)
[2022-01-27] MEDS: D5 0.45 NS 1,000 ML IV SCH (23:36)
[2022-01-28 02:36] LABS: Hematocrit 23.2 % (36.0-45.0)
[2022-01-28 05:13] LABS: Absolute Lymphocytes (CBC) 0.5 K/uL (0.7-4.9); Hematocrit 23.9 % (36.0-45.0); Lymphocytes % 5.7 % (15.3-44.8); RBC Red Blood Cell Count 2.81 M/uL (3.86-4.86)
[2022-01-28 05:34] LABS: Albumin 1.7 g/dL (3.4-5.0); Bilirubin Total 0.3 mg/dL (0.2-1.0); CKMB Creatine Kinase MB 1.2 ng/mL (1.0-3.6); Potassium 3.4 mmol/L (3.5-5.1); Protein, Total 6.3 g/dL (6.4-8.2); Thyroid Stimulating Hormone 0.23 uIU/mL (0.360-3.740); Uric Acid 7.9 mg/dL (2.6-6.0)
[2022-01-28 05:35] LABS: Troponin High Sensitivity 87.6 pg/mL (<58.9)
--- NOTE | 2022-01-28 05:59 | P.PN ---
Date of Service: 01/28/22 Subjective: no acute events, minimal change in symptoms levophed weaning down Reports generalized pain "all over" ROS: 10 point ROS as noted above, otherwise negative Physical exam GEN: Appears uncomfortable, tired HEENT: Normal conjunctiva, sclera anicteric CV: Regular rate and rhythm, no edema Pulm: Tachypneic, crackles bilaterally ABD: Soft, mild discomfort Integumentary: No rashes Neuro: appears tired, depressed mood, moves extremities Problem List Septic shock secondary to bilateral pneumonia Normocytic anemia, suspected GI bleed Acute renal failure History of HIV noncompliant with medications Continue Levophed, IV fluids Continue empiric antibiotics, patient with history of HIV, noncompliant with medications for over a year ID and pulmonology consulted Pain medication as needed Anemia, received 1 unit PRBC, GI consulted, continue Protonix drip Patient reports dark stool, as well as bright red blood per rectum intermittently over the last 1 to 2 weeks, and intermittent nosebleeds NATHAN improving with IV fluids, nephrology consulted VTE: SCDs given anemia, GI bleed Code: full Dispo: continue ICU, >2 hospital days Time Spent Managing Pts Care (In Minutes): 35
[2022-01-28] MEDS ORDERED: KCL 20 MEQ/100 mL IVPB 20 MEQ/100 ML BAG IV SCH (06:00)
[2022-01-28] MEDS: PANTOPRAZOLE INJ 80 MG in NA CHLORIDE 0.9% 250 ML IV SCH (07:00)
[2022-01-28] MEDS ORDERED: PANTOPRAZOLE INJ 80 MG in NA CHLORIDE 0.9% 250 ML IV SCH (07:30)
[2022-01-28] MEDS: dexAMETHasone 10 MG/ML VIAL IV SCH ×2 (08:08→20:12)
[2022-01-28] MEDS: CEFEPIME 1 GM in NA CHLORIDE 0.9% 100 ML IV SCH ×2 (08:08→20:11)
[2022-01-28] MEDS: D5 0.45 NS 1,000 ML IV SCH (08:12)
--- NOTE | 2022-01-28 08:33 | RAD REPORT ---
EXAM DESCRIPTION: US - Renal Ultrasound-Complete - 01/28/2022 12:13 am CLINICAL HISTORY: Acute renal failure COMPARISON: None. FINDINGS: The right kidney measures 10 cm with an increased echotexture. The left kidney measures 11 cm with an increased echotexture. Hydronephrosis is not seen. A Melendez catheter is present within a decompressed bladder Couple of tiny bright echoes within the kidneys equivocal for calculi IMPRESSION: Increased renal echotexture consistent with parenchymal disease
[2022-01-28] MEDS ORDERED: VANCOMYCIN 1 GM in NA CHLORIDE 0.9% 250 ML IVPB SCH ×2 (09:00→15:00)
[2022-01-28] MEDS ORDERED: NA CHLORIDE 0.9% 1,000 ML IV ONE (09:07)
[2022-01-28] MEDS: NA CHLORIDE 0.9% 1,000 ML IV SCH ×2 (09:12→16:21)
[2022-01-28] MEDS ORDERED: SODIUM CHLORIDE 0.9% 10ML INJ IV PRN (09:26)
[2022-01-28 09:55] LABS: Lipase 330 U/L (73-393)
--- NOTE | 2022-01-28 12:13 | P.CNS ---
Date of Consult: 01/28/22 Reason for Consult: Shock pneumonia HIV positive Chief Complaint: Septic shock, GI bleed History of Present Illness: Patient is 41 years of age with a history of HIV noncompliant admitted with anemia shock lives with her son has been declining in the past 6 months admitted with respiratory failure currently on Levophed history of GI bleeding not on any HIV medications is alert responsive complaining of some abdominal discomfort Allergies risperidone [From Risperdal] Allergy (Verified 08/16/19 10:22) Anaphylaxis Home Medications: NK [No Home Meds] 01/28/22 - Past Medical/Surgical History Diabetic: No -: Irritable bowel syndrome -: Persistent nausea/vomiting -: Depression/anxiety -: History of suicide attempt -: Arthritis -: Bipolar disorder -: HIV -: Cholecystectomy -: Tubal ligation Psychosocial/ Personal History: Unknown - Family History Mother Medical History: Cancer Notes: Colon - Social History Smoking Status: Unknown if ever smoked Alcohol use: No CD- Drugs: No Caffeine use: Yes Place of Residence: Home Review of Systems General: Weakness Respiratory: Shortness of Breath Gastrointestinal: Abdominal Pain, Hematochezia Physical Examination Temp Pulse Resp BP Pulse Ox 97.2 F 76 25 H 115/87 98 01/28/22 08:00 01/28/22 09:45 01/28/22 09:45 01/28/22 09:45 01/28/22 09:45 General: Alert, Moderate distress Respiratory: Clear to auscultation bilaterally Cardiovascular: No edema, Normal S1 S2 Gastrointestinal: Tenderness (Generalized abdominal tenderness) Musculoskeletal: No clubbing, No swelling Integumentary: No rashes, No breakdown Laboratory Data (last 24 hrs) 01/27/22 19:34: Lipase 298 01/27/22 14:10: PT 14.0 H, INR 1.27, APTT 34.8 01/27/22 14:10: Sodium 133 L, Potassium 3.0 L, BUN 61 H, Creatinine 1.96 H, Glucose 113 H, Total Bilirubin 0.4, AST 97 H, ALT 53, Alkaline Phosphatase 139 H 01/27/22 14:10: WBC 11.00 H, Hgb 6.4 L*, Hct 19.5 L*, Plt Count 402 - Problems (1) Shock Current Visit: Yes Status: Acute Plan: Patient is 41 years of age admitted with shock HIV positive no treatment history of GI bleed renal failure is improving most likely prerenal severe anemia with normal MCV most likely acute GI bleed still made LDH significantly elevated mild peripancreatic stranding normal lipase bilateral groundglass changes also has bilateral lower lobe consolidation gram-negative rods in the urine continue with broad-spectrum antibiotics and steroid possible underlying pneumocystis CD4 count HIV viral load has been ordered blood transfusion volume resuscitation oxygenation satisfactory sitter starting on Bactrim once renal function is improved change to normal saline cortisol level is normal agree with steroid
[2022-01-28] MEDS ORDERED: MORPHINE 2 MG/ML SYR IV PRN (12:16)
[2022-01-28] MEDS: HYDROMORPHONE HCL 1 MG/ML INJ IV PRN ×2 (12:44→20:12)
[2022-01-28] MEDS: ONDANSETRON 4 MG/2 ML VIAL IV PRN ×2 (12:45→20:12)
--- NOTE | 2022-01-28 13:18 | P.CNS ---
Date of Consult: 01/28/22 Chief Complaint: Septic shock, GI bleed History of Present Illness: The patient who presented to the emergency department check-in secondary to debility/weakness, shortness of breath, and hypotension. Per chart review, the patient lives with her son who reports that over the past 6 months she has been declining medically however has significantly worsened over the past few days. Patient was hypoxic on room air with O2 sats in the 60s upon arrival with significant hypotension with blood pressures in the 70s systolic. Patient was brought into the ED and given fluids. Labs are significant for anemia with a hemoglobin of 6.4, NATHAN with a creatinine of 1.96 and GFR of 28, and moderately elevated troponins. CT chest showed bilateral pulmonary opacities, CT abdomen pelvis showed left lower lobe consolidation. Blood and sputum cultures are pending. Urine culture growing GNR. Patient empirically placed on vancomycin and cefepime. Patient currently reports dysuria, increased urinary frequency/urgency, generalized pain, shortness of breath, and dyspnea. She denies chest pain, nausea, vomiting, diarrhea. Allergies risperidone [From Risperdal] Allergy (Verified 08/16/19 10:22) Anaphylaxis Home Medications: NK [No Home Meds] 01/28/22 - Past Medical/Surgical History Diabetic: No -: Irritable bowel syndrome -: Persistent nausea/vomiting -: Depression/anxiety -: History of suicide attempt -: Arthritis -: Bipolar disorder -: HIV -: Cholecystectomy -: Tubal ligation Psychosocial/ Personal History: Unknown - Family History Mother Medical History: Cancer Notes: Colon - Social History Smoking Status: Unknown if ever smoked Alcohol use: No CD- Drugs: No Caffeine use: Yes Place of Residence: Home Review of Systems 10-point ROS is otherwise unremarkable Physical Examination Temp Pulse Resp BP Pulse Ox 97.2 F 81 25 H 101/80 100 01/28/22 08:00 01/28/22 12:45 01/28/22 12:45 01/28/22 12:45 01/28/22 12:45 General: Alert, Other (Chronically ill-appearing) HEENT: Atraumatic, Normocephalic Neck: Supple, 2+ carotid pulse no bruit Respiratory: Crackles/rales Cardiovascular: No edema Gastrointestinal: Normal bowel sounds, Tenderness Musculoskeletal: No clubbing, No swelling, No contractures Integumentary: No rashes, No breakdown, No significant lesion Laboratory Data (last 24 hrs) 01/27/22 19:34: Lipase 298 01/27/22 14:10: PT 14.0 H, INR 1.27, APTT 34.8 01/27/22 14:10: Sodium 133 L, Potassium 3.0 L, BUN 61 H, Creatinine 1.96 H, Glucose 113 H, Total Bilirubin 0.4, AST 97 H, ALT 53, Alkaline Phosphatase 139 H 01/27/22 14:10: WBC 11.00 H, Hgb 6.4 L*, Hct 19.5 L*, Plt Count 402 Conclusions/Impression: Antibiotics: Vancomycin: 01/28current Cefepime: urrent Assessment/plan Sepsis secondary to bilateral pneumonia/UTI Continue broad-spectrum empiric coverage with vancomycin and cefepime -Once stabilized recommend transitioning to oral Bactrim for coverage of PJP given patient's clinical presentation and HIV noncompliant history -Preliminary urine culture growing GNR, awaiting speciation/susceptibility. Will tailor antibiotics accordingly HIV -Patient states that she stopped taking her antiviral therapy about half a year ago. Recommend following up with ID outpatient to resume antiviral therapy. Patient afebrile at this time with no neutropenia, we will not start prophylact ic coverage at this time. Anemia -Likely secondary to GI bleed GI consulted Continue to monitor closely Plan of care discussed with Dr. Salamanca Thank you for consultation
[2022-01-28 19:14] LABS: Absolute Lymphocytes (CBC) 0.5 K/uL (0.7-4.9); Hematocrit 21.1 % (36.0-45.0); Lymphocytes % 7.2 % (15.3-44.8); MPV 7.8 fL (7.6-11.3); RBC Red Blood Cell Count 2.46 M/uL (3.86-4.86)
[2022-01-28] MEDS: PANTOPRAZOLE 40 MG INJ IVP SCH (20:12)
[2022-01-29] MEDS: NA CHLORIDE 0.9% 1,000 ML IV SCH ×2 (01:43→05:00)
--- NOTE | 2022-01-29 02:46 | CON ---
Date of Consultation: 01/28/2022 Chief Complaint: Abnormal kidney function. History Of Present Illness: The patient has multiple medical problems. She is a 41-year-old woman w ith history of HIV, medical noncompliance, and history of anemia. She presented to emergency room be cause of shortness of breath and weakness and was found to have hypotension. She was complaining of dizziness, lightheadedness, and cough with shortness of breath. She has nonproductive cough. The pa elena was found to have hypoxemia and respiratory failure. She is on O2 nasal cannula. EMS evaluate d her and on arrival saturation was in the 60's, the patient was hypotensive with systolic blood pres sure in 70's. Lab was obtained in the emergency room and was significant for severe anemia, hemoglob in 6.4, hematocrit 19.5, creatinine level 1.[address] scan of the abdomen and pelvis done wi thout contrast suggests [id number] bilateral and ground-glass opacities and mild left lower lob e consolidation indicating pneumonia and peripancreatic stranding, probably mild pancreatitis. The p atient was started on broad-spectrum antibiotics. She was found to have lactic acidosis and positive stool guaiacs. CT scan did not show hydronephrosis. The patient had workup done to rule out urinar y tract infection. She was started on broad-spectrum antibiotics for pneumonia and sepsis. She is o n IV fluids and acute kidney injury. Patient has nonoliguric urine output. Past Medical History: Irritable bowel syndrome, persistent nausea, vomiting, depression, anxiety, hi story of suicidal attempt, arthritis, bipolar disorder, HIV, cholecystectomy, and tubal ligation. Family History: Mother had cancer of the colon. Social History: Denies alcohol and denies drugs. Review of Systems: General: The patient is lethargic, arousable. Denies pain. Has a nonproductive cough. Eyes: Denies vision changes. Ears, Nose, Mouth and Throat: Denies sore throat or earache. GI: She has nausea and vomiting. Denies melena or hematemesis. All other symptoms reviewed and all are negative. Physical Examination: General: Patient is awake, alert, follows commands. Eyes: Anicteric sclerae. EOMI. Ears, Nose, Mouth and Throat: Oral mucosa moist. No pallor. Neck: Supple. No bruits. Lungs: Rhonchi bilaterally. Heart: S1, S2. No pericardial friction or rub. Abdomen: Soft and benign. Extremities: No edema. Laboratory Data: Sodium 153, potassium 3.0, BUN 61, creatinine 1.96, glucose 113, total bilirubin 0. 4, AST 97, ALT 53, AP 139, hemoglobin 6.4, hematocrit 19.5, platelet count 402,000. Impression And Plan: 1.Acute kidney injury due to severe prerenal azotemia and nonoliguric acute tubular necrosis. The p atient has septic shock with bilateral pneumonia. The patient is started on IV fluids and vasopresso r therapy with Levophed. The patient was given cefepime and vancomycin pneumonia and for broad-spectrum coverage in view of sepsis and septic shock. Plan is to monitor urine output. Contin ue supportive measures for blood pressure support as well as for sepsis. The patient has hypoxemic r espiratory failure. The patient may need bronchoscopy in the future. 2.Normocytic anemia. The patient will have workup to rule out GI bleeding. 3. . Continue hydration and monitor fluid balance. 4.Acute renal failure, nonoliguric. Continue fluids. Monitor electrolytes. Hypokalemia. Monitor magnesium and phosphorous. Check CK level to rule out rhabdomyolysis. Check for proteinuria. 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 EB/MODL Voice ID: [id number] Report ID: [id number]
[2022-01-29] MEDS: HYDROMORPHONE HCL 1 MG/ML INJ IV PRN ×4 (02:48→21:10)
[2022-01-29] MEDS: ONDANSETRON 4 MG/2 ML VIAL IV PRN ×3 (02:49→21:21)
[2022-01-29] MEDS ORDERED: VANCOMYCIN 1 GM in NA CHLORIDE 0.9% 250 ML IVPB SCH (03:30)
--- NOTE | 2022-01-29 06:01 | P.PN ---
Date of Service: 01/29/22 Subjective: cough improved, breathing unchanged. pain throughout entire body, states has been going on for months, would intermittently take pain medication/benzo at home from mom off levophed since yesterday tolerating CLD, reports smell of food makes her nauseous ROS: 10 point ROS as noted above, otherwise negative Physical exam GEN: AOx3, NAD, tired HEENT: Normal conjunctiva, sclera anicteric CV: Regular rate and rhythm, no edema Pulm: crackles bilaterally, non-labored on NC ABD: Soft, mild diffuse discomfort MSK: tenderness throughout b/l legs/muscles Neuro: appears tired, depressed mood, moves extremities Problem List Septic shock secondary to bilateral pneumonia, UTI Normocytic anemia, suspected GI bleed Acute renal failure History of HIV noncompliant with medications off levo, continue IVF Continue empiric antibiotics, patient with history of HIV, noncompliant with medications for over a year ID and pulmonology consulted Pain medication as needed Anemia, received 1 unit PRBC, GI consulted hgb stable, GI switched protonix drip to BID yesterday Patient reports dark stool at home, as well as bright red blood per rectum intermittently over the last 1 to 2 weeks, and intermittent nosebleeds NATHAN improving with IV fluids, nephrology consulted f/u cultures VTE: SCDs given anemia, GI bleed Code: full Dispo: continue ICU, >2 hospital days Time Spent Managing Pts Care (In Minutes): 35
[2022-01-29 06:28] LABS: Absolute Lymphocytes (CBC) 0.6 K/uL (0.7-4.9); Hematocrit 22.5 % (36.0-45.0); Lymphocytes % 8.6 % (15.3-44.8); MPV 8.4 fL (7.6-11.3)
[2022-01-29 06:53] LABS: ALT/SGPT 28 U/L (12-78); AST/SGOT 27 U/L (15-37); Albumin 1.4 g/dL (3.4-5.0); Alkaline Phosphatase 84 U/L (45-117); BUN Blood Urea Nitrogen 22 mg/dL (7-18); Bicarbonate 21 mmol/L (21-32); Bilirubin Total 0.2 mg/dL (0.2-1.0); Glucose Level 131 mg/dL (74-106); Potassium 3.8 mmol/L (3.5-5.1); Protein, Total 5.5 g/dL (6.4-8.2); Sodium Level 145 mmol/L (136-145)
--- NOTE | 2022-01-29 07:28 | EKG ---
Test Date: 2022-01-27 Test Time: 13:03:48 Medical Records Technician: DEJAH MEASUREMENT RESULTS: Intervals: Rate: 145 CA: 114 QRSD: 64 QT: 292 QTc: 453 [place]: P: 20 CA: 114 QRS: 79 T: 71 INTERPRETIVE STATEMENTS: Sinus tachycardia Otherwise normal ECG Compared to ECG 11/14/2021 11:48:17 No significant changes Electronically Signed On 01-29-22 07:23:01 CDT by Fadi Avila
--- NOTE | 2022-01-29 08:24 | RAD REPORT ---
EXAM DESCRIPTION: RAD - Chest Single View - 01/29/2022 6:34 am CLINICAL HISTORY: f/u opacities Chest pain. COMPARISON: Chest Single View dated 01/27/2022; Chest Single View dated 11/14/2021; CHEST SINGLE VIEW dated 02/27/2015; ABDOMEN ACUTE SERIES dated 04/27/2012 FINDINGS: Portable technique limits examination quality. Mild bilateral interstitial lung opacities are again seen, slightly improved since comparative study. The heart is normal in size. No displaced fractures. IMPRESSION: Subtle improvement lung aeration seen since comparative study.
[2022-01-29] MEDS: dexAMETHasone 10 MG/ML VIAL IV SCH ×2 (08:25→21:09)
[2022-01-29] MEDS: PANTOPRAZOLE 40 MG INJ IVP SCH ×2 (08:25→21:09)
[2022-01-29] MEDS ORDERED: CEFTRIAXONE 1,000 MG in NA CHLORIDE 0.9% 50 ML IVPB SCH (09:00)
--- NOTE | 2022-01-29 11:50 | P.PN ---
Subjective Date of Service: 01/29/22 Chief Complaint: Respiratory failure Subjective: Ambulating, Improving (Patient is doing better still complaining of generalized pain hemodynamically stable no further evidence of GI bleed) Review of Systems General: Weakness, Other (Generalized pain) Respiratory: Shortness of Breath Physical Examination - Vital Signs Temperature: 97.0 F Blood Pressure: 82/60 Pulse: 86 Respirations: 18 Pulse Ox (%): 94 - Physical Exam General: Alert, Oriented x3, Mild distress Respiratory: Clear to auscultation bilaterally Cardiovascular: No edema, Regular rate/rhythm Gastrointestinal: Tenderness (Diffuse abdominal tenderness) - Studies Microbiology Data (last 24 hrs): 01/27/22 14:36 Catheterized Urine [place] Count - Final >100,000 CFU/ML. 01/27/22 14:36 Catheterized Urine - Final Escherichia Coli 01/27/22 17:11 Sputum Sputum Gram Stain - Final Assessment And Plan - Current Problems (Diagnosis) (1) Shock Current Visit: Yes Status: Resolved Plan: Patient is 41 years of age admitted with shock HIV positive no treatment history of GI bleed renal failure is improving most likely prerenal severe anemia with normal MCV most likely acute GI bleed still made LDH significantly elevated mild peripancreatic stranding normal lipase bilateral groundglass changes also has bilateral lower lobe consolidation gram-negative rods in the urine continue with broad-spectrum antibiotics and steroid possible underlying pneumocystis CD4 count HIV viral load has been ordered blood transfusion volume resuscitation oxygenation satisfactory sitter starting on Bactrim once renal function is improved change to normal saline cortisol level is normal agree with steroid (2) Pneumocystis carinii pneumonia Current Visit: Yes Status: Acute Plan: Most likely the patient has pneumocystis infections LDH is elevated agree with changing over to p.o. Bactrim interchange agent to p.o. steroids E. coli isolated in the urine still continues to remain mildly anemic interchange agent to p.o. pantoprazole stable to be transferred to the floor DC IV fluids Qualifiers: Laterality: bilateral
--- NOTE | 2022-01-29 11:57 | P.PN ---
Subjective Date of Service: 01/29/22 Chief Complaint: Respiratory failure Patient seen and examined at bedside, states she is feeling better today. Review of Systems 10-point ROS is otherwise unremarkable Physical Examination - Vital Signs Temperature: 97.0 F Blood Pressure: 82/60 Pulse: 86 Respirations: 18 Pulse Ox (%): 94 - Studies Microbiology 01/27/22 14:36 Catheterized Urine [place] Count - Final >100,000 CFU/ML. 01/27/22 14:36 Catheterized Urine - Final Escherichia Coli 01/27/22 17:11 Sputum Sputum Gram Stain - Final 01/27/22 14:30 Blood - Blood Aerobic Blood Culture - Preliminary No growth in 24 hours. 01/27/22 14:30 Blood - Blood Anaerobic Blood Culture - Preliminary No growth in 24 hours. 01/27/22 14:15 Blood - Blood Aerobic Blood Culture - Preliminary No growth in 24 hours. 01/27/22 14:15 Blood - Blood Anaerobic Blood Culture - Preliminary No growth in 24 hours. Microbiology Data (last 24 hrs): 01/27/22 14:36 Catheterized Urine [place] Count - Final >100,000 CFU/ML. 01/27/22 14:36 Catheterized Urine - Final Escherichia Coli 01/27/22 17:11 Sputum Sputum Gram Stain - Final Assessment And Plan - Plan Physical exam: General: Alert, Other (Chronically ill-appearing) HEENT: Atraumatic, Normocephalic Neck: Supple, 2+ carotid pulse no bruit Respiratory: Crackles/rales Cardiovascular: No edema Gastrointestinal: Normal bowel sounds, Tenderness Musculoskeletal: No clubbing, No swelling, No contractures Integumentary: No rashes, No breakdown, No significant lesion Conclusions/Impression: Antibiotics: Bactrim: 01/29-current Vancomycin: Cefepime: Assessment/plan Sepsis secondary to bilateral pneumonia/UTI Broad-spectrum antibiotics deescalated to oral Bactrim. Bactrim dose increased for PCP treatment. Recommend continuing this for 21 days. High likelihood of PCP given patient's clinical presentation and HIV noncompliant history. -Pending labs include: CD4 count and HIV viral load -Urine culture growing E. coli, sensitive to Bactrim. HIV -Patient states that she stopped taking her antiviral therapy about half a year ago. Recommend following up with ID outpatient to resume antiviral therapy. Patient afebrile at this time with no neutropenia. Anemia -Likely secondary to GI bleed GI consulted Continue to monitor closely Plan of care discussed with Dr. Salamanca Thank you for consultation
[2022-01-29] MEDS: SMZ./TMP. 800/160 MG TABLET PO SCH ×2 (12:50→21:10)
[2022-01-30] MEDS: HYDROMORPHONE HCL 1 MG/ML INJ IV PRN ×3 (02:09→10:23)
--- NOTE | 2022-01-30 03:22 | PN ---
Date of Progress Note: 01/29/2022 Chief Complaint: Abnormal kidney function/acute kidney injury. History Of Present Illness: The patient is a 41-year-old woman with history of HIV medical noncompli ance, history of anemia of chronic disease. She came to the hospital because of generalized weakness . She was found to have hypoxemic respiratory failure, hypotension. Creatinine level was 1.96, GFR 28. Patient was started on IV fluids and antibiotics for pneumonia. CT scan did not show hydronephr osis. Patient had a CT scan without IV contrast. Patient is on broad-spectrum antibiotics and recei felipe IV fluids for acute kidney injury. Review of Systems: The patient is feeling better today. Physical Examination: Lungs: Clear to auscultation bilaterally. Heart: S1, S2. Abdomen: Soft. Benign. Extremities: No edema. Impression And Plan: 1.Acute kidney injury. Continue IV fluids for acute kidney injury with prerenal azotemia and sepsis . The patient required Levophed for blood pressure support. Currently she is on cefepime and vancom ycin . 2.Human immunodeficiency virus per primary team. 3.Acute kidney injury, nonoliguric. Monitor electrolytes. Patient received a treatment for hypokal emia. Monitor phosphorus and magnesium. The patient has history of HIV likely with underlying chronic kidney disease. Recommend to screen for hepatitis as well. EB/MODL Voice ID: [id number] Report ID: [id number]
[2022-01-30 05:52] LABS: Absolute Lymphocytes (CBC) 0.4 K/uL (0.7-4.9); Hematocrit 22.8 % (36.0-45.0); MPV 8.2 fL (7.6-11.3); RBC Red Blood Cell Count 2.64 M/uL (3.86-4.86)
--- NOTE | 2022-01-30 06:12 | P.PN ---
Date of Service: 01/30/22 Subjective: Improving Reports breathing slightly improved, continues with thick sputum Having pains all over her body Tolerating liquid diet ROS: 10 point ROS as noted above, otherwise negative Physical exam GEN: AOx3, tired appearing HEENT: Normal conjunctiva, sclera anicteric CV: Regular rate and rhythm, no edema Pulm: mild crackles bilaterally, non-labored on 4L NC ABD: Soft, mild diffuse discomfort MSK: tenderness throughout b/l legs/muscles Neuro: appears tired, depressed mood, moves extremities Problem List Septic shock secondary to bilateral pneumonia, UTI Normocytic anemia, suspected GI bleed Acute renal failure History of HIV noncompliant with medications Slowly improving, transferred to the ICU on 01/29 Transitioning IV medications to p.o. ID consulted, continue on p.o. Bactrim, to cover for pneumocystis Discontinue Melendez catheter Physical therapy consulted Patient encouraged to ambulate more Hemoglobin stable, no evidence of brittany bleeding during his hospitalization. Concern for occult GI bleed, GI was consulted, off Protonix drip, continue twice daily Protonix. No current plan for any procedures Goal hemoglobin > 7.0 Renal function improving, nephrology following Follow-up cultures Still requiring oxygen supplementation, wean as tolerated VTE: SCDs given anemia, GI bleed Code: full Dispo: home, 2-3 days Time Spent Managing Pts Care (In Minutes): 35
[2022-01-30 06:20] LABS: ALT/SGPT 29 U/L (12-78); AST/SGOT 27 U/L (15-37); Albumin 1.5 g/dL (3.4-5.0); Alkaline Phosphatase 77 U/L (45-117); BUN Blood Urea Nitrogen 18 mg/dL (7-18); Bicarbonate 23 mmol/L (21-32); Bilirubin Total 0.2 mg/dL (0.2-1.0); Glucose Level 127 mg/dL (74-106); Potassium 3.7 mmol/L (3.5-5.1); Protein, Total 5.3 g/dL (6.4-8.2); Sodium Level 142 mmol/L (136-145)
[2022-01-30 06:47] LABS: Blood Morphology Comment NOT SEEN (NOT SEEN); Platelet Estimate ADEQ; White Blood Cell Scan OK (OK)
[2022-01-30] MEDS: predniSONE 20 MG TAB PO SCH ×2 (09:18→21:04)
[2022-01-30] MEDS: SMZ./TMP. 800/160 MG TABLET PO SCH ×3 (09:18→21:03)
--- NOTE | 2022-01-30 10:33 | RAD REPORT ---
EXAM DESCRIPTION: ALBAShirin Single View01/30/2022 9:59 am CLINICAL HISTORY: Respiratory failure COMPARISON: January 29, 2022 FINDINGS: Allowing for differences in technique there has been no significant change the bilateral p ulmonary opacities which appear [id number] Heart is normal size IMPRESSION: No change in the bilateral pulmonary opacities which may represent pneumonia
--- NOTE | 2022-01-30 11:53 | P.PN ---
Subjective Date of Service: 01/30/22 Chief Complaint: Respiratory failure Patient seen and examined at bedside, transferred from ICU to [facility] floor. Review of Systems 10-point ROS is otherwise unremarkable Physical Examination - Vital Signs Temperature: 97.5 F Blood Pressure: 96/69 Pulse: 71 Respirations: 16 Pulse Ox (%): 92 - Studies Laboratory Last Values WBC 11.00 K/uL (4.3-10.9) H 01/27/22 14:10 RBC 2.36 M/uL (3.86-4.86) L 01/27/22 14:10 Hgb 6.4 g/dL (12.0-15.0) L* 01/27/22 14:10 Hct 19.5 % (36.0-45.0) L* 01/27/22 14:10 MCV 82.6 fL (80-100) 01/27/22 14:10 MCH 27.1 pg (27.0-35.0) 01/27/22 14:10 MCHC 32.8 g/dL (32.0-36.0) 01/27/22 14:10 RDW 20.8 % (12.1-15.2) H 01/27/22 14:10 Plt Count 402 K/uL (152-406) 01/27/22 14:10 MPV 8.1 fL (7.6-11.3) 01/27/22 14:10 Neutrophils % 91.9 % (41.7-73.7) H 01/27/22 14:10 Lymphocytes % 4.1 % (15.3-44.8) L 01/27/22 14:10 Monocytes % 3.5 % (3.3-12.3) 01/27/22 14:10 Eosinophils % 0.2 % (0-4.4) 01/27/22 14:10 Basophils % 0.3 % (0-1.3) 01/27/22 14:10 Absolute Neutrophils 10.1 K/uL (1.8-8.0) H 01/27/22 14:10 Absolute Lymphocytes 0.5 K/uL (0.7-4.9) L 01/27/22 14:10 Absolute Monocytes 0.4 K/uL (0.1-1.3) 01/27/22 14:10 Absolute Eosinophils 0.0 K/uL (0-0.5) 01/27/22 14:10 Absolute Basophils 0.0 K/uL (0-0.5) 01/27/22 14:10 Platelet Estimate Incr 01/27/22 14:10 Poikilocytosis 2+ 01/27/22 14:10 Anisocytosis 1+ 01/27/22 14:10 Morphology Comment Noted (NOT SEEN) 01/27/22 14:10 PT 14.0 SECONDS (9.5-12.5) H 01/27/22 14:10 INR 1.27 01/27/22 14:10 APTT 34.8 SECONDS (24.3-36.9) 01/27/22 14:10 pH 7.34 (7.35-7.45) L 01/27/22 20:04 pCO2 38.7 mmHG (35-45) 01/27/22 20:04 pO2 122.0 mmHG (75-100) H 01/27/22 20:04 HCO3 20.2 mmol/L (22-28) L 01/27/22 20:04 Base Excess -4.6 mmol/L 01/27/22 20:04 Oxyhemoglobin 95.1 % (94-97) 01/27/22 20:04 ABG O2 Sat (Measured) 97.5 % (92-98.5) 01/27/22 20:04 ABG Carboxyhemoglobin 0.9 % (0-1.5) 01/27/22 20:04 ABG Methemoglobin 1.6 % (0-1.5) H 01/27/22 20:04 Other Total Hgb 6.3 g/dl (12-18) L 01/27/22 20:04 Inspired O2 100.0 % 01/27/22 20:04 Sodium 133 mmol/L (136-145) L 01/27/22 14:10 Potassium 3.0 mmol/L (3.5-5.1) L 01/27/22 14:10 Chloride 97 mmol/L (98-107) L 01/27/22 14:10 Carbon Dioxide 23 mmol/L (21-32) 01/27/22 14:10 BUN 61 mg/dL (7-18) H 01/27/22 14:10 Creatinine 1.96 mg/dL (0.55-1.3) H 01/27/22 14:10 Estimated GFR 28 mL/min (=/>90) L 01/27/22 14:10 Glucose 113 mg/dL (74-106) H 01/27/22 14:10 POC Glucose 111 mg/dL (65-120) 01/27/22 14:46 Lactic Acid 1.2 mmol/L (0.4-2.0) 01/27/22 14:10 Calcium 8.0 mg/dL (8.5-10.1) L 01/27/22 14:10 Total Bilirubin 0.4 mg/dL (0.2-1.0) 01/27/22 14:10 AST 97 U/L (15-37) H 01/27/22 14:10 ALT 53 U/L (12-78) 01/27/22 14:10 Alkaline Phosphatase 139 U/L (45-117) H 01/27/22 14:10 Troponin I High Sens 103.60 pg/mL (<58.9) H* 01/27/22 19:34 Serum Total Protein 7.1 g/dL (6.4-8.2) 01/27/22 14:10 Albumin 2.0 g/dL (3.4-5.0) L 01/27/22 14:10 Globulin 5.1 g/dL (2.3-3.5) H 01/27/22 14:10 Albumin/Globulin Ratio 0.4 (1.1-1.8) L 01/27/22 14:10 Lipase 298 U/L (73-393) 01/27/22 19:34 Urine pH 5.5 (5.0-7.0) 01/27/22 14:36 Ur Specific [place] 1.020 (1.005-1.030) 01/27/22 14:36 Glucose (UA)(Auto) Negative (Negative) 01/27/22 14:36 Urine Ketones Negative (Negative) 01/27/22 14:36 Urine Blood Negative (Negative) 01/27/22 14:36 Urine Nitrite Negative (Negative) 01/27/22 14:36 Ur Leukocyte Esterase 1+ (Negative) H 01/27/22 14:36 Urine RBC 5-10 /HPF (NONE SEEN) H 01/27/22 14:36 Urine WBC 10-20 /HPF (<5) H 01/27/22 14:36 Ur Squamous Epith Cells 5-10 /HPF (NONE SEEN) H 01/27/22 14:36 Urine Bacteria <20 /HPF (<20) 01/27/22 14:36 Urine Mucus 2+ /HPF (NONE SEEN) 01/27/22 14:36 Urine Culture Reflexed Not needed 01/27/22 14:36 Urine Total Protein 1+ (Negative) H 01/27/22 14:36 Ur Specific [place] (HCG) 1.020 (1.005-1.030) 01/27/22 14:39 Urine Test Neg (NEG) 01/27/22 14:39 SARS-CoV-2 Rap RNA(RT-PCR) Negative (NEGATIVE) 01/27/22 16:30 Smear Scan Ok (OK) 01/27/22 14:10 ABO/Rh A POSITIVE 01/27/22 14:55 ABO/Rh Cancelled 01/27/22 14:55 Solid Phase Ab Screen Cancelled 01/27/22 14:55 Solid Phase Ab Screen Negative 01/27/22 14:55 Crossmatch See Detail 01/27/22 14:55 BBK History Checked Cancelled 01/27/22 14:55 Microbiology Data (last 24 hrs): 01/27/22 17:11 Sputum Sputum Gram Stain - Final 01/27/22 14:36 Catheterized Urine [place] Count - Final >100,000 CFU/ML. 01/27/22 14:36 Catheterized Urine - Final Escherichia Coli Assessment And Plan - Plan Physical exam: General: Alert, Other (Chronically ill-appearing) HEENT: Atraumatic, Normocephalic Neck: Supple, 2+ carotid pulse no bruit Respiratory: Crackles/rales Cardiovascular: No edema Gastrointestinal: Normal bowel sounds, Tenderness Musculoskeletal: No clubbing, No swelling, No contractures Integumentary: No rashes, No breakdown, No significant lesion Conclusions/Impression: Antibiotics: Bactrim: 01/29-current Vancomycin: Cefepime: Assessment/plan Sepsis secondary to bilateral pneumonia/UTI Broad-spectrum antibiotics deescalated to oral Bactrim. Bactrim dose increased for PCP treatment. Recommend continuing this for 21 days. High likelihood of PCP given patient's clinical presentation and HIV noncompliant history. -Pending labs include: CD4 count and HIV viral load -Urine culture growing E. coli, sensitive to Bactrim. HIV -Patient states that she stopped taking her antiviral therapy about half a year ago. Recommend following up with ID outpatient to resume antiviral therapy. Patient afebrile at this time with no neutropenia. Anemia -Likely secondary to GI bleed GI consulted Continue to monitor closely Plan of care discussed with Dr. Salamanca Thank you for consultation
--- NOTE | 2022-01-30 13:08 | P.PN ---
Subjective Date of Service: 01/30/22 Chief Complaint: Pneumonia Still complaining of generalized pain severe weakness Review of Systems General: Weakness Respiratory: Shortness of Breath Gastrointestinal: Abdominal Pain Physical Examination - Vital Signs Temperature: 97.5 F Blood Pressure: 96/69 Pulse: 71 Respirations: 16 Pulse Ox (%): 92 - Physical Exam General: Alert, Moderate distress Respiratory: Clear to auscultation bilaterally, Diminished - Studies Microbiology Data (last 24 hrs): 01/27/22 17:11 Sputum Sputum Gram Stain - Final Assessment And Plan - Current Problems (Diagnosis) (1) Pneumocystis carinii pneumonia Current Visit: Yes Status: Acute Plan: High risk for pneumocystis patient is on Bactrim and steroids hemoglobin is stable sputum for pneumocystis evidence of GI bleeding patient is still hypoxic Qualifiers: Laterality: bilateral
[2022-01-30] MEDS: HYDROMORPHONE HCL 0.5 MG/0.5 ML INJ IV PRN ×3 (14:17→22:01)
[2022-01-30] MEDS: PANTOPRAZOLE 40MG TABLET PO SCH (16:21)
[2022-01-31] MEDS: HYDROMORPHONE HCL 0.5 MG/0.5 ML INJ IV PRN ×6 (01:55→22:41)
--- NOTE | 2022-01-31 02:57 | PN ---
Date of Progress Note: 01/30/2022 Chief Complaint: Acute kidney injury with prerenal azotemia. History Of Present Illness: The patient has history of HIV, medical noncompliance, history of anemia of chronic disease. She came to the hospital because of shortness of breath and weakness. She was found to have hypoxemic respiratory failure associated with hypotension. Creatinine level was up to 1.96 and GFR was down to 28. The patient was started on IV antibiotics for pneumonia. CT scan did n ot show hydronephrosis. The patient had CT scan without contrast. Review of Systems: Denies new complaints. Physical Examination: Lungs: Clear to auscultation bilaterally. Heart: S1, S2. Abdomen: Soft, benign. Extremities: No edema. Impression And Plan: 1.Acute kidney injury. Continue IV fluids for acute kidney injury with prerenal azotemia in the set ting of sepsis. The patient was treated with Levophed for blood pressure support in ICU. Currently, she is on pressors. Continue IV fluids as needed. Advance p.o. intake as tolerated. Continue cefe pime and vancomycin. Monitor vancomycin level. 2.Human Immunodeficiency Virus, per Primary Team. 3.History of oliguria. Monitor electrolytes. The patient received treatment for hypokalemia. Lauren tor phosphorus and magnesium level. EB/MODL Voice ID: [id number] Report ID: [id number]
[2022-01-31 06:01] LABS: Absolute Lymphocytes (CBC) 0.6 K/uL (0.7-4.9); Hematocrit 22.3 % (36.0-45.0); Lymphocytes % 8.4 % (15.3-44.8); MPV 8.1 fL (7.6-11.3); RBC Red Blood Cell Count 2.61 M/uL (3.86-4.86)
--- NOTE | 2022-01-31 06:14 | P.PN ---
Date of Service: 01/31/22 Subjective: No acute events overnight Chest slightly better, continues with cough/productive sputum Feels weak, diffuse aches and pains throughout the body tolerating diet without pain/nausea got out of bed to urinate ROS: 10 point ROS as noted above, otherwise negative Physical exam GEN: AOx3, tired HEENT: Normal conjunctiva, sclera anicteric CV: Regular rate and rhythm, no edema Pulm: non-labored on 4L NC, productive cough ABD: Soft, mild diffuse discomfort MSK: mild tenderness throughout b/l legs/muscles Neuro: appears tired, depressed mood, moves extremities Problem List Septic shock secondary to bilateral pneumonia, UTI Normocytic anemia, suspected GI bleed Acute renal failure History of HIV noncompliant with medications Slowly improving, transferred out of the ICU on 01/29 ID consulted, continue on p.o. Bactrim, to cover for pneumocystis and UTI bazzi removed, voiding without issue Physical therapy consulted Patient encouraged to ambulate more Concern for occult GI bleed, GI was consulted, off Protonix drip, continue twice daily Protonix. No current plan for any procedures Hemoglobin stable, no evidence of brittany bleeding during his hospitalization. Goal hemoglobin > 7.0 Renal function improving, nephrology following Follow-up cultures Still requiring oxygen supplementation, wean as tolerated CXR improving VTE: SCDs given anemia, GI bleed Code: full Dispo: home, ~3 days Time Spent Managing Pts Care (In Minutes): 35
[2022-01-31 06:28] LABS: ALT/SGPT 31 U/L (12-78); AST/SGOT 28 U/L (15-37); Albumin 1.6 g/dL (3.4-5.0); Alkaline Phosphatase 73 U/L (45-117); BUN Blood Urea Nitrogen 16 mg/dL (7-18); Bicarbonate 22 mmol/L (21-32); Bilirubin Total 0.1 mg/dL (0.2-1.0); Glucose Level 108 mg/dL (74-106); Potassium 3.4 mmol/L (3.5-5.1); Protein, Total 5.4 g/dL (6.4-8.2); Sodium Level 141 mmol/L (136-145)
--- NOTE | 2022-01-31 08:09 | RAD REPORT ---
EXAM DESCRIPTION: RAD - Chest Single View - 01/31/2022 5:38 am CLINICAL HISTORY: resp failure COMPARISON: Portable January 30, portable January 29 TECHNIQUE: AP portable chest image was obtained 01/31/2022 5:38 am . FINDINGS: Lung volume is improved compared to the prior day study. Lung reyes show slightly better aeration. No progressive lung parenchymal process. Heart and vasculature are normal. No measurable pleural effusion and no pneumothorax. No acute bony abnormality seen. No acute aortic findings suspected. IMPRESSION: Partial clearing of lung parenchymal opacification compared to January 30. No new or progressive process.
[2022-01-31] MEDS: predniSONE 20 MG TAB PO SCH ×2 (08:34→22:41)
[2022-01-31] MEDS: PANTOPRAZOLE 40MG TABLET PO SCH ×2 (08:34→17:09)
[2022-01-31] MEDS: SMZ./TMP. 800/160 MG TABLET PO SCH ×3 (08:34→22:42)
[2022-01-31] MEDS ORDERED: POTASSIUM CL SA 10 MEQ TAB PO ONE (08:40)
[2022-01-31] MEDS: DOCUSATE NA 100 MG CAP PO SCH (22:42)
--- NOTE | 2022-02-01 02:46 | PN ---
Date of Progress Note: 01/31/2022 Chief Complaint: Acute on chronic kidney injury, nonoliguric, renal function has improved in respons e to IV fluids. History Of Present Illness: Patient was primarily admitted to ICU for hypotension. She has history of HIV, medical noncompliance, history of anemia due to chronic kidney disease, history of hypoxemic respiratory failure and hypotension. Creatinine level was up to 1.96. GFR declined to 28. Patient is on IV antibiotics for pneumonia. Review of Systems: Denies fever, chills. Physical Examination: Lungs: Clear to auscultation bilaterally. Heart: S1, S2. Abdomen: Soft, benign. Extremities: No edema. Impression And Plan: 1.Acute on chronic kidney injury. Continue IV fluids for acute kidney injury with prerenal azotemia in the setting of sepsis. 2.Patient had levophed drip for blood pressure support and levophed was weaned off. The patient was transferred from ICU to telemetry floor. 3.Continue cefepime and vancomycin for sepsis. Monitor vancomycin level. 4.Human immunodeficiency virus infection per primary team. 5.History of oliguria. Monitor electrolytes. Patient received treatment for hypokalemia. Monitor phosphorus and magnesium level and potassium level. EB/MODL Voice ID: [id number] Report ID: [id number]
[2022-02-01 05:42] LABS: Absolute Lymphocytes (CBC) 0.4 K/uL (0.7-4.9); Hematocrit 21.5 % (36.0-45.0); RBC Red Blood Cell Count 2.52 M/uL (3.86-4.86)
[2022-02-01 05:59] LABS: ALT/SGPT 32 U/L (12-78); AST/SGOT 27 U/L (15-37); Albumin 1.8 g/dL (3.4-5.0); Alkaline Phosphatase 74 U/L (45-117); BUN Blood Urea Nitrogen 12 mg/dL (7-18); Bicarbonate 21 mmol/L (21-32); Bilirubin Total 0.2 mg/dL (0.2-1.0); Glucose Level 103 mg/dL (74-106); Potassium 3.9 mmol/L (3.5-5.1); Protein, Total 5.6 g/dL (6.4-8.2); Sodium Level 138 mmol/L (136-145)
--- NOTE | 2022-02-01 06:21 | P.PN ---
Date of Service: 02/01/22 Subjective: improving still with pain / cough nausea, low appetite ROS: 10 point ROS as noted above, otherwise negative Physical exam GEN: AOx3 HEENT: Normal conjunctiva, sclera anicteric CV: Regular rate and rhythm, no edema Pulm: non-labored on 2L NC, productive cough ABD: Soft, mild diffuse discomfort MSK: mild tenderness throughout b/l legs/muscles Neuro: appears tired, depressed mood, moves extremities Problem List Septic shock secondary to bilateral pneumonia, UTI Normocytic anemia, suspected GI bleed; acute on chronic; stable Acute renal failure History of HIV noncompliant with medications Slowly improving, transferred out of the ICU on 01/29 ID consulted, continue on p.o. Bactrim, to cover for pneumocystis and UTI bazzi removed, voiding without issue Physical therapy consulted - Patient encouraged to ambulate more Concern for occult GI bleed, GI was consulted, off Protonix drip, continue twice daily Protonix. No current plan for any procedures Hemoglobin stable, no evidence of brittany bleeding during his hospitalization. s/p 1uPRBC Goal hemoglobin > 7.0; if BP remains low, will transfuse 1uPRBC. Renal function improving, nephrology following Still requiring oxygen supplementation, wean as tolerated CXR improving VTE: SCDs given anemia, GI bleed Code: full Dispo: home, ~2-3 days Time Spent Managing Pts Care (In Minutes): 35
[2022-02-01] MEDS: PANTOPRAZOLE 40MG TABLET PO SCH ×2 (08:43→17:43)
[2022-02-01] MEDS: SMZ./TMP. 800/160 MG TABLET PO SCH ×3 (08:43→20:03)
[2022-02-01] MEDS: HYDROMORPHONE HCL 0.5 MG/0.5 ML INJ IV PRN ×3 (08:43→19:18)
[2022-02-01] MEDS: DOCUSATE NA 100 MG CAP PO SCH ×2 (08:44→20:03)
[2022-02-01] MEDS: predniSONE 20 MG TAB PO SCH ×2 (08:44→20:03)
[2022-02-01 11:10] LABS: HBsAG Nonreactive (Nonreactive)
--- NOTE | 2022-02-01 21:55 | PN ---
Date of Progress Note: 02/01/2022 Chief Complaint: Acute on chronic kidney injury, nonoliguric, renal function has improved in respons e to IV fluids. History Of Present Illness: The patient primarily was admitted to ICU for hypotension. She has hist ory of HIV, medical noncompliance. She was found to have hypoxemic respiratory failure, hypotension, and was found to have pneumonia. She was treated with IV antibiotics for pneumonia. GFR declined t o 28, creatinine level was up to 1.96. Renal function has improved over last several days. Patient is hemodynamically stable. Review of Systems: Denies fever, chills. Physical Examination: Lungs: Clear to auscultation bilaterally. Heart: S1, S2. Abdomen: Soft, benign. Extremities: No edema. Impression And Plan: 1.Acute on chronic kidney injury. Continue IV fluids hydration. The patient responded to IV fluids . The patient will advance p.o. intake as tolerated. The patient had levophed drip for blood pressu re support when she was in ICU. Levophed was weaned off. Monitor blood pressure, the patient kayce quiroga is on telemetry floor. 2.Continue cefepime, vancomycin for sepsis. Monitor vancomycin level. 3.Human immunodeficiency virus infection per primary team. 4.History of hypophosphatemia. Monitor phosphorus level and magnesium level and plan replacement as needed. EB/MODL Voice ID: [id number] Report ID: [id number]
[2022-02-02] MEDS: HYDROMORPHONE HCL 0.5 MG/0.5 ML INJ IV PRN ×6 (00:38→23:18)
[2022-02-02 05:56] LABS: Absolute Lymphocytes (CBC) 0.6 K/uL (0.7-4.9); Hematocrit 20.8 % (36.0-45.0); Lymphocytes % 7.7 % (15.3-44.8); MPV 8.2 fL (7.6-11.3); RBC Red Blood Cell Count 2.43 M/uL (3.86-4.86)
[2022-02-02 06:17] LABS: ALT/SGPT 28 U/L (12-78); AST/SGOT 18 U/L (15-37); Albumin 1.9 g/dL (3.4-5.0); Alkaline Phosphatase 68 U/L (45-117); BUN Blood Urea Nitrogen 11 mg/dL (7-18); Bicarbonate 20 mmol/L (21-32); Bilirubin Total 0.2 mg/dL (0.2-1.0); Glucose Level 90 mg/dL (74-106); Potassium 3.8 mmol/L (3.5-5.1); Protein, Total 5.5 g/dL (6.4-8.2); Sodium Level 134 mmol/L (136-145)
--- NOTE | 2022-02-02 06:24 | P.PN ---
Date of Service: 02/02/22 Subjective: Improving, minimal appetite COVID to bedside commode Body aches improving, no nausea/vomiting Still requiring oxygen supplementation ROS: 10 point ROS as noted above, otherwise negative Physical exam GEN: AOx3, NAD HEENT: Normal conjunctiva, sclera anicteric CV: Regular rate and rhythm, no edema Pulm: non-labored on 2L NC, productive cough ABD: Soft, mild diffuse discomfort MSK: mild tenderness throughout b/l anterior thighs Neuro: depressed mood, moves extremities Problem List Septic shock secondary to bilateral pneumonia, UTI Normocytic anemia, suspected GI bleed; acute on chronic; stable Acute renal failure History of HIV noncompliant with medications Slowly improving, transferred out of the ICU on 01/29 ID consulted, continue on p.o. Bactrim, to cover for pneumocystis and UTI bazzi removed, voiding without issue Physical therapy consulted - Patient encouraged to ambulate more Concern for occult GI bleed, GI was consulted, off Protonix drip, continue twice daily Protonix. No current plan for any procedures s/p 1uPRBC on admission Hgb relatively stable, slight downtrend over past few days, likely due to sepsis and blood draws hgb <7.0, ordered 1 more unit PRBCs Renal function improved, nephrology following Still requiring oxygen supplementation, wean as tolerated CXR improving VTE: SCDs given anemia, GI bleed Code: full Dispo: home, ~2 days Time Spent Managing Pts Care (In Minutes): 35
[2022-02-02] MEDS ORDERED: NA CHLORIDE 0.9% 250 ML IV SCH (07:00)
[2022-02-02] MEDS: DOCUSATE NA 100 MG CAP PO SCH ×2 (09:00→21:00)
[2022-02-02] MEDS: SMZ./TMP. 800/160 MG TABLET PO SCH ×3 (09:30→22:37)
[2022-02-02] MEDS: predniSONE 20 MG TAB PO SCH ×2 (09:30→22:37)
[2022-02-02] MEDS: PANTOPRAZOLE 40MG TABLET PO SCH ×2 (09:30→18:21)
[2022-02-02] MEDS ORDERED: NA CHLORIDE 0.9% 250 ML ONE (15:09)
[2022-02-02] MEDS: TRAMADOL HCL 50 MG TAB PO PRN ×2 (15:39→22:38)
[2022-02-02 22:16] LABS: Hematocrit 26.2 % (36.0-45.0)
[2022-02-02] MEDS: ONDANSETRON 4 MG/2 ML VIAL IV PRN (22:40)
[2022-02-03] MEDS: BENZONATATE 100 MG CAP PO PRN ×3 (00:04→13:30)
--- NOTE | 2022-02-03 01:37 | PN ---
Date of Progress Note: 02/02/2022 Chief Complaint: Nonoliguric acute kidney injury on chronic kidney disease. Subjective: Renal function has improved in response to IV fluids. The patient primarily was admitte d to ICU for hypotension and she has history of HIV and medical noncompliance. She was found to have hypoxemic respiratory failure, hypotension, and she was treated with IV antibiotics and IV fluid, as well as pneumonia and sepsis with acute kidney injury. The patient is feeling better. Review of Systems: Denies fever or chills. Objective: Lungs: Clear to auscultation bilaterally. Heart: S1 and S2. Abdomen: Soft, benign. Extremities: No edema. Impression And Plan: 1.Acute on chronic kidney injury. Continue IV fluid for hydration. The patient will advance with p .o. intake. The patient was weaned off Levophed. Currently, she is hemodynamically stable. Monitor blood pressure. 2.Sepsis. Continue cefepime and monitor vancomycin level. The patient has human immunodeficiency v irus. Further management by primary team. 3.History of hypophosphatemia. Monitor phosphorus level and plan for replacement as needed. EB/MODL Voice ID: [id number] Report ID: [id number]
[2022-02-03 04:48] LABS: Absolute Lymphocytes (CBC) 0.4 K/uL (0.7-4.9); Hematocrit 27.7 % (36.0-45.0); Lymphocytes % 5.7 % (15.3-44.8); MPV 7.7 fL (7.6-11.3); RBC Red Blood Cell Count 3.45 M/uL (3.86-4.86)
[2022-02-03] MEDS: HYDROMORPHONE HCL 0.5 MG/0.5 ML INJ IV PRN ×5 (04:58→21:25)
[2022-02-03 05:02] LABS: ALT/SGPT 29 U/L (12-78); AST/SGOT 17 U/L (15-37); Alkaline Phosphatase 72 U/L (45-117); BUN Blood Urea Nitrogen 11 mg/dL (7-18); Bicarbonate 23 mmol/L (21-32); Glucose Level 114 mg/dL (74-106); Magnesium 1.7 mg/dL (1.8-2.4); Potassium 4.4 mmol/L (3.5-5.1); Protein, Total 5.9 g/dL (6.4-8.2); Sodium Level 131 mmol/L (136-145)
[2022-02-03 05:08] LABS: Bilirubin Total < 0.1 mg/dL (0.2-1.0)
--- NOTE | 2022-02-03 06:11 | P.PN ---
Date of Service: 02/03/22 Subjective: improving with some nausea with food 1 episodes of emesis feeling better, s/p 1u PRBC yesterday ROS: 10 point ROS as noted above, otherwise negative Physical exam GEN: AOx3, NAD HEENT: Normal conjunctiva, sclera anicteric CV: Regular rate and rhythm, no edema Pulm: non-labored on 1.5L NC, productive cough ABD: Soft, mild diffuse discomfort MSK: mild tenderness throughout b/l anterior thighs Neuro: depressed mood, moves extremities Problem List Septic shock secondary to bilateral pneumonia, UTI Normocytic anemia, suspected GI bleed; acute on chronic; stable Acute renal failure, resolved History of HIV noncompliant with medications Slowly improving, transferred out of the ICU on 01/29 ID consulted, continue on p.o. Bactrim, to cover for pneumocystis and UTI bazzi removed, voiding without issue Physical therapy consulted - Patient encouraged to ambulate more Concern for occult GI bleed, GI was consulted, off Protonix drip, continue twice daily Protonix. No current plan for any procedures s/p 1uPRBC on admission, Hgb downtrended, received a 2nd unit of PRBC (total 2u PRBC) Renal function improved, nephrology following Still requiring oxygen supplementation but improving, wean as tolerated VTE: SCDs given anemia, GI bleed Code: full Dispo: home, ~1-2 days Time Spent Managing Pts Care (In Minutes): 35
[2022-02-03 06:39] LABS: Anisocytosis 2+; Blood Morphology Comment NOTED (NOT SEEN); Ovalocytes 1+; Platelet Estimate ADEQ; Polychromasia 1+
[2022-02-03] MEDS: SMZ./TMP. 800/160 MG TABLET PO SCH ×3 (08:41→20:29)
[2022-02-03] MEDS: predniSONE 20 MG TAB PO SCH ×2 (08:42→20:30)
[2022-02-03] MEDS: DOCUSATE NA 100 MG CAP PO SCH ×2 (08:43→20:30)
[2022-02-03] MEDS: PANTOPRAZOLE 40MG TABLET PO SCH ×2 (08:43→17:14)
[2022-02-03 14:27] LABS: Albumin, (SPE) 1.7 g/dL (3.8-4.8); Alpha-1-Globulins 0.5 g/dL (0.2-0.3); Alpha-2-Globulins 1.2 g/dL (0.5-0.9); Gamma Globulins 0.8 g/dL (0.8-1.7); INTERPRETATION REPORT
--- NOTE | 2022-02-03 17:59 | P.PN ---
Subjective Date of Service: 02/03/22 Chief Complaint: Pneumonia Patient seen and examined at bedside, no acute events. Review of Systems 10-point ROS is otherwise unremarkable Physical Examination - Vital Signs Temperature: 97.0 F Blood Pressure: 102/68 Pulse: 82 Respirations: 20 Pulse Ox (%): 96 - Studies Laboratory Last Values WBC 11.00 K/uL (4.3-10.9) H 01/27/22 14:10 RBC 2.36 M/uL (3.86-4.86) L 01/27/22 14:10 Hgb 6.4 g/dL (12.0-15.0) L* 01/27/22 14:10 Hct 19.5 % (36.0-45.0) L* 01/27/22 14:10 MCV 82.6 fL (80-100) 01/27/22 14:10 MCH 27.1 pg (27.0-35.0) 01/27/22 14:10 MCHC 32.8 g/dL (32.0-36.0) 01/27/22 14:10 RDW 20.8 % (12.1-15.2) H 01/27/22 14:10 Plt Count 402 K/uL (152-406) 01/27/22 14:10 MPV 8.1 fL (7.6-11.3) 01/27/22 14:10 Neutrophils % 91.9 % (41.7-73.7) H 01/27/22 14:10 Lymphocytes % 4.1 % (15.3-44.8) L 01/27/22 14:10 Monocytes % 3.5 % (3.3-12.3) 01/27/22 14:10 Eosinophils % 0.2 % (0-4.4) 01/27/22 14:10 Basophils % 0.3 % (0-1.3) 01/27/22 14:10 Absolute Neutrophils 10.1 K/uL (1.8-8.0) H 01/27/22 14:10 Absolute Lymphocytes 0.5 K/uL (0.7-4.9) L 01/27/22 14:10 Absolute Monocytes 0.4 K/uL (0.1-1.3) 01/27/22 14:10 Absolute Eosinophils 0.0 K/uL (0-0.5) 01/27/22 14:10 Absolute Basophils 0.0 K/uL (0-0.5) 01/27/22 14:10 Platelet Estimate Incr 01/27/22 14:10 Poikilocytosis 2+ 01/27/22 14:10 Anisocytosis 1+ 01/27/22 14:10 Morphology Comment Noted (NOT SEEN) 01/27/22 14:10 PT 14.0 SECONDS (9.5-12.5) H 01/27/22 14:10 INR 1.27 01/27/22 14:10 APTT 34.8 SECONDS (24.3-36.9) 01/27/22 14:10 pH 7.34 (7.35-7.45) L 01/27/22 20:04 pCO2 38.7 mmHG (35-45) 01/27/22 20:04 pO2 122.0 mmHG (75-100) H 01/27/22 20:04 HCO3 20.2 mmol/L (22-28) L 01/27/22 20:04 Base Excess -4.6 mmol/L 01/27/22 20:04 Oxyhemoglobin 95.1 % (94-97) 01/27/22 20:04 ABG O2 Sat (Measured) 97.5 % (92-98.5) 01/27/22 20:04 ABG Carboxyhemoglobin 0.9 % (0-1.5) 01/27/22 20:04 ABG Methemoglobin 1.6 % (0-1.5) H 01/27/22 20:04 Other Total Hgb 6.3 g/dl (12-18) L 01/27/22 20:04 Inspired O2 100.0 % 01/27/22 20:04 Sodium 133 mmol/L (136-145) L 01/27/22 14:10 Potassium 3.0 mmol/L (3.5-5.1) L 01/27/22 14:10 Chloride 97 mmol/L (98-107) L 01/27/22 14:10 Carbon Dioxide 23 mmol/L (21-32) 01/27/22 14:10 BUN 61 mg/dL (7-18) H 01/27/22 14:10 Creatinine 1.96 mg/dL (0.55-1.3) H 01/27/22 14:10 Estimated GFR 28 mL/min (=/>90) L 01/27/22 14:10 Glucose 113 mg/dL (74-106) H 01/27/22 14:10 POC Glucose 111 mg/dL (65-120) 01/27/22 14:46 Lactic Acid 1.2 mmol/L (0.4-2.0) 01/27/22 14:10 Calcium 8.0 mg/dL (8.5-10.1) L 01/27/22 14:10 Total Bilirubin 0.4 mg/dL (0.2-1.0) 01/27/22 14:10 AST 97 U/L (15-37) H 01/27/22 14:10 ALT 53 U/L (12-78) 01/27/22 14:10 Alkaline Phosphatase 139 U/L (45-117) H 01/27/22 14:10 Troponin I High Sens 103.60 pg/mL (<58.9) H* 01/27/22 19:34 Serum Total Protein 7.1 g/dL (6.4-8.2) 01/27/22 14:10 Albumin 2.0 g/dL (3.4-5.0) L 01/27/22 14:10 Globulin 5.1 g/dL (2.3-3.5) H 01/27/22 14:10 Albumin/Globulin Ratio 0.4 (1.1-1.8) L 01/27/22 14:10 Lipase 298 U/L (73-393) 01/27/22 19:34 Urine pH 5.5 (5.0-7.0) 01/27/22 14:36 Ur Specific [place] 1.020 (1.005-1.030) 01/27/22 14:36 Glucose (UA)(Auto) Negative (Negative) 01/27/22 14:36 Urine Ketones Negative (Negative) 01/27/22 14:36 Urine Blood Negative (Negative) 01/27/22 14:36 Urine Nitrite Negative (Negative) 01/27/22 14:36 Ur Leukocyte Esterase 1+ (Negative) H 01/27/22 14:36 Urine RBC 5-10 /HPF (NONE SEEN) H 01/27/22 14:36 Urine WBC 10-20 /HPF (<5) H 01/27/22 14:36 Ur Squamous Epith Cells 5-10 /HPF (NONE SEEN) H 01/27/22 14:36 Urine Bacteria <20 /HPF (<20) 01/27/22 14:36 Urine Mucus 2+ /HPF (NONE SEEN) 01/27/22 14:36 Urine Culture Reflexed Not needed 01/27/22 14:36 Urine Total Protein 1+ (Negative) H 01/27/22 14:36 Ur Specific [place] (HCG) 1.020 (1.005-1.030) 01/27/22 14:39 Urine Test Neg (NEG) 01/27/22 14:39 SARS-CoV-2 Rap RNA(RT-PCR) Negative (NEGATIVE) 01/27/22 16:30 Smear Scan Ok (OK) 01/27/22 14:10 ABO/Rh A POSITIVE 01/27/22 14:55 ABO/Rh Cancelled 01/27/22 14:55 Solid Phase Ab Screen Cancelled 01/27/22 14:55 Solid Phase Ab Screen Negative 01/27/22 14:55 Crossmatch See Detail 01/27/22 14:55 BBK History Checked Cancelled 01/27/22 14:55 Assessment And Plan - Plan Physical exam: General: Alert, Other (Chronically ill-appearing) HEENT: Atraumatic, Normocephalic Neck: Supple, 2+ carotid pulse no bruit Respiratory: Crackles/rales Cardiovascular: No edema Gastrointestinal: Normal bowel sounds, Tenderness Musculoskeletal: No clubbing, No swelling, No contractures Integumentary: No rashes, No breakdown, No significant lesion Conclusions/Impression: Antibiotics: Bactrim: 01/29-current Vancomycin: Cefepime: Assessment/plan Sepsis secondary to bilateral pneumonia/UTI Broad-spectrum antibiotics deescalated to oral Bactrim. Bactrim dose increased for PCP treatment. Recommend continuing this for 21 days. High likelihood of PCP given patient's clinical presentation and HIV noncompliant history. -Sputum culture growing staph aureus sensitive to Bactrim -Pending labs include: CD4 count and HIV viral load -Urine culture growing E. coli, sensitive to Bactrim. HIV -Patient states that she stopped taking her antiviral therapy about half a year ago. Recommend following up with ID outpatient to resume antiviral therapy. Patient afebrile at this time with no neutropenia. Anemia -Likely secondary to GI bleed GI consulted Continue to monitor closely Plan of care discussed with Dr. Salamanca Thank you for consultation
[2022-02-03] MEDS: ENSURE HIGH PROTEIN 237 ML CAN PO SCH (20:32)
[2022-02-04] MEDS: HYDROMORPHONE HCL 0.5 MG/0.5 ML INJ IV PRN ×4 (01:30→14:43)
[2022-02-04 04:59] LABS: Absolute Lymphocytes (CBC) 0.4 K/uL (0.7-4.9); Hematocrit 28.1 % (36.0-45.0); Lymphocytes % 6.8 % (15.3-44.8); MPV 7.8 fL (7.6-11.3); RBC Red Blood Cell Count 3.52 M/uL (3.86-4.86)
[2022-02-04 05:45] LABS: ALT/SGPT 29 U/L (12-78); AST/SGOT 16 U/L (15-37); Albumin 2.2 g/dL (3.4-5.0); Alkaline Phosphatase 71 U/L (45-117); BUN Blood Urea Nitrogen 11 mg/dL (7-18); Bicarbonate 23 mmol/L (21-32); Bilirubin Total 0.2 mg/dL (0.2-1.0); Glucose Level 97 mg/dL (74-106); Potassium 4.3 mmol/L (3.5-5.1); Protein, Total 5.9 g/dL (6.4-8.2); Sodium Level 128 mmol/L (136-145)
--- NOTE | 2022-02-04 07:59 | P.PN ---
Subjective Date of Service: 02/04/22 Chief Complaint: Pneumonia Subjective: No new changes Physical Examination - Vital Signs Temperature: 97.6 F Blood Pressure: 97/64 Pulse: 99 Respirations: 18 Pulse Ox (%): 95 - Physical Exam General: Other (appears chronically ill) HEENT: Atraumatic, Normocephalic Neck: Supple, JVD not distended Respiratory: Other (symmetric chest expansion) Cardiovascular: No rubs, No murmurs Gastrointestinal: Soft and benign Musculoskeletal: No clubbing Integumentary: No warmth Neurological: Normal tone Urinary: Other (no bladder distention) External genitalia: Deferred Rectal: Deferred Assessment And Plan - Plan 1. Acute on chronic kidney injury. Resolved. Clio po fluid intake. 2. Sepsis from uti, pneumonia. Received abx. 3. HIV. HAART. 4. Hyponatremia. Increase po solid food intake tid. 5. Anemia. Monitor H/H.
[2022-02-04] MEDS: BENZONATATE 100 MG CAP PO PRN ×2 (08:01→14:43)
[2022-02-04] MEDS: DOCUSATE NA 100 MG CAP PO SCH (08:01)
[2022-02-04] MEDS: SMZ./TMP. 800/160 MG TABLET PO SCH ×2 (08:01→14:43)
[2022-02-04] MEDS: ENSURE HIGH PROTEIN 237 ML CAN PO SCH (08:02)
[2022-02-04] MEDS: predniSONE 20 MG TAB PO SCH (08:02)
[2022-02-04] MEDS: PANTOPRAZOLE 40MG TABLET PO SCH (08:02)
[2022-02-04 11:07] VITALS: O2SAT 98
--- NOTE | 2022-02-04 11:35 | P.PN ---
Subjective Date of Service: 02/04/22 Chief Complaint: Pneumonia Patient seen and examined at bedside, complaining of sore throat. Diffuse oral thrush noted on physical exam. Review of Systems 10-point ROS is otherwise unremarkable Physical Examination - Vital Signs Temperature: 97.3 F Blood Pressure: 96/56 Pulse: 87 Respirations: 20 Pulse Ox (%): 99 - Studies Laboratory Last Values WBC 11.00 K/uL (4.3-10.9) H 01/27/22 14:10 RBC 2.36 M/uL (3.86-4.86) L 01/27/22 14:10 Hgb 6.4 g/dL (12.0-15.0) L* 01/27/22 14:10 Hct 19.5 % (36.0-45.0) L* 01/27/22 14:10 MCV 82.6 fL (80-100) 01/27/22 14:10 MCH 27.1 pg (27.0-35.0) 01/27/22 14:10 MCHC 32.8 g/dL (32.0-36.0) 01/27/22 14:10 RDW 20.8 % (12.1-15.2) H 01/27/22 14:10 Plt Count 402 K/uL (152-406) 01/27/22 14:10 MPV 8.1 fL (7.6-11.3) 01/27/22 14:10 Neutrophils % 91.9 % (41.7-73.7) H 01/27/22 14:10 Lymphocytes % 4.1 % (15.3-44.8) L 01/27/22 14:10 Monocytes % 3.5 % (3.3-12.3) 01/27/22 14:10 Eosinophils % 0.2 % (0-4.4) 01/27/22 14:10 Basophils % 0.3 % (0-1.3) 01/27/22 14:10 Absolute Neutrophils 10.1 K/uL (1.8-8.0) H 01/27/22 14:10 Absolute Lymphocytes 0.5 K/uL (0.7-4.9) L 01/27/22 14:10 Absolute Monocytes 0.4 K/uL (0.1-1.3) 01/27/22 14:10 Absolute Eosinophils 0.0 K/uL (0-0.5) 01/27/22 14:10 Absolute Basophils 0.0 K/uL (0-0.5) 01/27/22 14:10 Platelet Estimate Incr 01/27/22 14:10 Poikilocytosis 2+ 01/27/22 14:10 Anisocytosis 1+ 01/27/22 14:10 Morphology Comment Noted (NOT SEEN) 01/27/22 14:10 PT 14.0 SECONDS (9.5-12.5) H 01/27/22 14:10 INR 1.27 01/27/22 14:10 APTT 34.8 SECONDS (24.3-36.9) 01/27/22 14:10 pH 7.34 (7.35-7.45) L 01/27/22 20:04 pCO2 38.7 mmHG (35-45) 01/27/22 20:04 pO2 122.0 mmHG (75-100) H 01/27/22 20:04 HCO3 20.2 mmol/L (22-28) L 01/27/22 20:04 Base Excess -4.6 mmol/L 01/27/22 20:04 Oxyhemoglobin 95.1 % (94-97) 01/27/22 20:04 ABG O2 Sat (Measured) 97.5 % (92-98.5) 01/27/22 20:04 ABG Carboxyhemoglobin 0.9 % (0-1.5) 01/27/22 20:04 ABG Methemoglobin 1.6 % (0-1.5) H 01/27/22 20:04 Other Total Hgb 6.3 g/dl (12-18) L 01/27/22 20:04 Inspired O2 100.0 % 01/27/22 20:04 Sodium 133 mmol/L (136-145) L 01/27/22 14:10 Potassium 3.0 mmol/L (3.5-5.1) L 01/27/22 14:10 Chloride 97 mmol/L (98-107) L 01/27/22 14:10 Carbon Dioxide 23 mmol/L (21-32) 01/27/22 14:10 BUN 61 mg/dL (7-18) H 01/27/22 14:10 Creatinine 1.96 mg/dL (0.55-1.3) H 01/27/22 14:10 Estimated GFR 28 mL/min (=/>90) L 01/27/22 14:10 Glucose 113 mg/dL (74-106) H 01/27/22 14:10 POC Glucose 111 mg/dL (65-120) 01/27/22 14:46 Lactic Acid 1.2 mmol/L (0.4-2.0) 01/27/22 14:10 Calcium 8.0 mg/dL (8.5-10.1) L 01/27/22 14:10 Total Bilirubin 0.4 mg/dL (0.2-1.0) 01/27/22 14:10 AST 97 U/L (15-37) H 01/27/22 14:10 ALT 53 U/L (12-78) 01/27/22 14:10 Alkaline Phosphatase 139 U/L (45-117) H 01/27/22 14:10 Troponin I High Sens 103.60 pg/mL (<58.9) H* 01/27/22 19:34 Serum Total Protein 7.1 g/dL (6.4-8.2) 01/27/22 14:10 Albumin 2.0 g/dL (3.4-5.0) L 01/27/22 14:10 Globulin 5.1 g/dL (2.3-3.5) H 01/27/22 14:10 Albumin/Globulin Ratio 0.4 (1.1-1.8) L 01/27/22 14:10 Lipase 298 U/L (73-393) 01/27/22 19:34 Urine pH 5.5 (5.0-7.0) 01/27/22 14:36 Ur Specific [place] 1.020 (1.005-1.030) 01/27/22 14:36 Glucose (UA)(Auto) Negative (Negative) 01/27/22 14:36 Urine Ketones Negative (Negative) 01/27/22 14:36 Urine Blood Negative (Negative) 01/27/22 14:36 Urine Nitrite Negative (Negative) 01/27/22 14:36 Ur Leukocyte Esterase 1+ (Negative) H 01/27/22 14:36 Urine RBC 5-10 /HPF (NONE SEEN) H 01/27/22 14:36 Urine WBC 10-20 /HPF (<5) H 01/27/22 14:36 Ur Squamous Epith Cells 5-10 /HPF (NONE SEEN) H 01/27/22 14:36 Urine Bacteria <20 /HPF (<20) 01/27/22 14:36 Urine Mucus 2+ /HPF (NONE SEEN) 01/27/22 14:36 Urine Culture Reflexed Not needed 01/27/22 14:36 Urine Total Protein 1+ (Negative) H 01/27/22 14:36 Ur Specific [place] (HCG) 1.020 (1.005-1.030) 01/27/22 14:39 Urine Test Neg (NEG) 01/27/22 14:39 SARS-CoV-2 Rap RNA(RT-PCR) Negative (NEGATIVE) 01/27/22 16:30 Smear Scan Ok (OK) 01/27/22 14:10 ABO/Rh A POSITIVE 01/27/22 14:55 ABO/Rh Cancelled 01/27/22 14:55 Solid Phase Ab Screen Cancelled 01/27/22 14:55 Solid Phase Ab Screen Negative 01/27/22 14:55 Crossmatch See Detail 01/27/22 14:55 BBK History Checked Cancelled 01/27/22 14:55 Assessment And Plan - Plan Physical exam: General: Alert, Other (Chronically ill-appearing) HEENT: Atraumatic, Normocephalic Neck: Supple, 2+ carotid pulse no bruit Respiratory: Crackles/rales Cardiovascular: No edema Gastrointestinal: Normal bowel sounds, Tenderness Musculoskeletal: No clubbing, No swelling, No contractures Integumentary: No rashes, No breakdown, No significant lesion Conclusions/Impression: Antibiotics: Bactrim: 01/29-current Vancomycin: Cefepime: Assessment/plan Sepsis secondary to bilateral pneumonia/UTI Broad-spectrum antibiotics deescalated to oral Bactrim. Bactrim dose increased for PCP treatment. Recommend continuing this for 21 days. High likelihood of PCP given patient's clinical presentation and HIV noncompliant history. -Sputum culture growing staph aureus sensitive to Bactrim -Pending labs include: CD4 count and HIV viral load -Urine culture growing E. coli, sensitive to Bactrim. Oral thrush -Continue nystatin suspension 3 times daily HIV -Patient states that she stopped taking her antiviral therapy about half a year ago. Recommend following up with ID outpatient to resume antiviral therapy. Patient afebrile at this time with no neutropenia. Anemia -Likely secondary to GI bleed GI consulted Continue to monitor closely Plan of care discussed with Dr. Salamanca Thank you for consultation
[2022-02-04] MEDS: ONDANSETRON 4 MG/2 ML VIAL IV PRN (11:41)
--- NOTE | 2022-02-04 13:25 | PN ---
Date of Progress Note: 02/04/2022 Chief Complaint: Nonoliguric acute kidney injury on chronic kidney disease. Subjective: Renal function has improved in response to IV fluids. Patient primarily was admitted to ICU for septic hypotension and she has history of medical noncompliance as well as HIV infection. Doyle paulino was found to have hypoxemic respiratory failure, hypotension, acute kidney injury. She was tr eated with IV antibiotics and IV fluids for sepsis and acute kidney injury. Renal function improved to baseline. Review of Systems: Denies fever or chills. Physical Examination: Lungs: Clear to auscultation bilaterally. Heart: S1 and S2. Abdomen: Soft, benign. Extremities: No edema. Impression And Plan: 1.Acute on chronic kidney injury. Continue IV fluids for hydration. Advance p.o. intake. Patient was weaned off Levophed. She is on telemetry floor. She is hemodynamically stable. Monitor blood p ressure. Resume blood pressure medication according to blood pressure log. 2.Sepsis. Continue cefepime and monitor vancomycin level. 3.History of hypophosphatemia, phosphorus replacement as needed. EB/MODL Voice ID: [id number] Report ID: [id number]
--- NOTE | 2022-02-04 13:49 | P.DS ---
Admission Date: 01/27/22 Discharge Date: 02/04/22 Disposition: ROUTINE DISCHARGE Discharge Condition: FAIR Reason for Admission: Pneumonia Brief History of Present Illness: 41-year-old female with history of HIV, medical noncompliance and anemia presented to the emergency department for shortness of breath, weakness, low blood pressure. She lives with her son at home and she reports that over the course of the last 6 months she has been declining medically, significantly worse last few days. Patient was hypoxic on room air with saturations in the 60s upon arrival of EMS also significantly hypotensive with blood pressures in the 70s systolic. Her labs were significant for normocytic anemia with hemoglobin of 6.4 hematocrit of 19.5, she was in acute renal failure creatinine 1.96 and GFR of 28, mild elevation high-sensitivity troponin. Chest x-ray demonstrated suspected pneumonia, CT chest abdomen pelvis without IV contrast suggests mild to moderate bilateral groundglass opacities mild left lower lobe consolidation indicating suspected pneumonia also mild peripancreatic stranding probably mild pancreatitis. Lipase was obtained which was normal. Patient was still hypotensive after receiving fluid bolus was started on Levophed in the emergency department as well as broad-spectrum antibiotics cefepime/vancomycin. Lactic acid was 1.2, guaiac positive. Patient started on blood transfusion and admitted to the ICU for further management. Hospital Course: Problem List Septic shock secondary to bilateral pneumonia, UTI Normocytic anemia, suspected GI bleed; acute on chronic; stable Acute renal failure, resolved History of HIV noncompliant with medications Acute respiratory failure with hypoxia Patient admitted to the ICU and treated with broad-spectrum antibiotics. She was also resuscitated with IV fluid. Her blood pressure improved Patient seen by ID who suspected pneumocystis pneumonia. She also had UTI Patient started on Bactrim, to cover for pneumocystis and UTI. He had Melendez catheter which was eventually removed with no voiding issues. Physical therapy to encourage ambulation. Concern for occult GI bleed. Patient initially treated with Protonix drip. She received 2 unit PRBC transfusion. GI was consulted who recommended outpatient follow-up and no procedure at this time. Her renal function improved with IV hydration. She was seen by nephrology who assisted with management She initially required oxygen but was eventually weaned off to room air which she tolerated. Vital Signs/Physical Exam: Temp Pulse Resp BP Pulse Ox 96.9 F 91 H 18 109/70 96 02/04/22 12:00 02/04/22 12:00 02/04/22 12:00 02/04/22 12:00 02/04/22 12:00 General: Alert, In no apparent distress, Cachectic, Other (Sick looking) HEENT: Mucous membr. moist/pink, Sclerae nonicteric Neck: JVD not distended Respiratory: Clear to auscultation bilaterally, Normal air movement Cardiovascular: No edema, Regular rate/rhythm, Normal S1 S2 Gastrointestinal: Soft and benign, Non-distended, No tenderness Musculoskeletal: No swelling Integumentary: No rashes Neurological: Normal strength at 5/5 x4 extr, Cranial nerves 3-12 intact Laboratory Data at Discharge: WBC 5.90 K/uL (4.3-10.9) D 02/04/22 04:50 Hgb 9.1 g/dL (12.0-15.0) L 02/04/22 04:50 Hct 28.1 % (36.0-45.0) L 02/04/22 04:50 Plt Count 252 K/uL (152-406) 02/04/22 04:50 PT 14.0 SECONDS (9.5-12.5) H 01/27/22 14:10 INR 1.27 01/27/22 14:10 APTT 34.8 SECONDS (24.3-36.9) 01/27/22 14:10 Sodium 128 mmol/L (136-145) L 02/04/22 04:50 Potassium 4.3 mmol/L (3.5-5.1) 02/04/22 04:50 BUN 11 mg/dL (7-18) 02/04/22 04:50 Creatinine 0.58 mg/dL (0.55-1.3) 02/04/22 04:50 Glucose 97 mg/dL (74-106) 02/04/22 04:50 Uric Acid 7.9 mg/dL (2.6-6.0) H 01/28/22 04:50 Magnesium 1.7 mg/dL (1.8-2.4) L 02/03/22 04:30 Total Bilirubin 0.2 mg/dL (0.2-1.0) 02/04/22 04:50 AST 16 U/L (15-37) 02/04/22 04:50 ALT 29 U/L (12-78) 02/04/22 04:50 Alkaline Phosphatase 71 U/L (45-117) 02/04/22 04:50 Lipase 330 U/L (73-393) 01/28/22 Unknown Home Medications: Benzonatate [Tessalon Perle*] 100 mg PO TID PRN #60 cap 02/04/22 Docusate [Colace Cap*] 100 mg PO BID #60 cap 02/04/22 Ensure High Protein 237 ml PO BID #30 can 02/04/22 Nystatin 5 ml PO TID #473 ml 02/04/22 Pantoprazole [Protonix Tab*] 40 mg PO BIDAC #60 tab 02/04/22 Smz./Tmp. [Bactrim Ds 800 MG/160 MG*] 2 tab PO TID #84 tab 02/04/22 predniSONE [Prednisone*] 20 mg PO DAILY #7 tab 02/04/22 traMADol HCL [Ultram*] 50 mg PO Q6H PRN #16 tab 02/04/22 New Medications: Smz./Tmp. [Bactrim Ds 800 MG/160 MG*] 2 tab PO TID #84 tab Docusate [Colace Cap*] 100 mg PO BID #60 cap Ensure High Protein 237 ml PO BID #30 can Nystatin 5 ml PO TID #473 ml predniSONE [Prednisone*] 20 mg PO DAILY #7 tab Pantoprazole [Protonix Tab*] 40 mg PO BIDAC #60 tab Benzonatate [Tessalon Perle*] 100 mg PO TID PRN #60 cap PRN Reason: Cough traMADol HCL [Ultram*] 50 mg PO Q6H PRN #16 tab PRN Reason: Pain Scale 5-7 (Moderate) Diet: Regular Activity: Ad hira Followup: Unknown,U [Primary Care Provider] - Time spent managing pt's care (in minutes): 36
[2022-02-04] MEDS ORDERED: NYSTATIN 500,000 UNIT/5 ML UDC PO SCH (14:00)
[2022-02-04 20:29] LABS: Beta Globulin 24 HR Urine 38 %; Gamma Globulin, 24hr Urine 20 %; Interpretation: REPORT; Protein/Crea Ratio in g 1184 mg/g creat (<=114); Protein/Crea Ratio in mg 1.184 (<=0.114); Urine Alpha-2-Globulins, 24 Hr 25 %; Urine PEP Abn Protein Band1 REPORT; Urine Total Volume 24 Hours 1200 mL
[2022-02-05 05:42] VITALS: BP 97/64; TEMP 97.6
== END 2022-02-04 16:45 | disposition home or self-care (01) | DRG 871 ==
LOC: ER 13:52 → 3RD-ICU 20:11 → 2ND 01-29 16:29
PROVIDERS: ADMIT Hospitalist; ATTEND Internal Medicine
PROC: 30233N1 Transfusion of Nonautologous Red Blood Cells into Peripheral Vein, Percutaneous Approach (ICD-10-PCS; principal; 2022-01-27)
PROC: 06HY33Z Insertion of Infusion Device into Lower Vein, Percutaneous Approach (ICD-10-PCS; 2022-01-27)
DX: A41.51 Sepsis due to Escherichia coli [E. coli] (principal); R65.21 Severe sepsis with septic shock; N17.0 Acute kidney failure with tubular necrosis; B59 Pneumocystosis; J96.01 Acute respiratory failure with hypoxia; K92.2 Gastrointestinal hemorrhage, unspecified; N39.0 Urinary tract infection, site not specified; E87.2 Acidosis; E87.1 Hypo-osmolality and hyponatremia; B37.0 Candidal stomatitis; R64 Cachexia; N18.9 Chronic kidney disease, unspecified; E87.6 Hypokalemia; D64.9 Anemia, unspecified; J45.909 Unspecified asthma, uncomplicated; B96.89 Other specified bacterial agents as the cause of diseases classified elsewhere; Z21 Asymptomatic human immunodeficiency virus [HIV] infection status; Z91.14 Patient's other noncompliance with medication regimen; Z68.23 Body mass index [BMI] 23.0-23.9, adult; Z79.52 Long term (current) use of systemic steroids; Z88.8 Allergy status to other drugs, medicaments and biological substances; Z79.899 Other long term (current) drug therapy; Z90.49 Acquired absence of other specified parts of digestive tract; Z98.51 Tubal ligation status; Z20.822 Contact with and (suspected) exposure to COVID-19
CPT/HCPCS: 36415; 71045; 71250; 74176; 76770; 80053; 80074; 81003; 81015; 81025; 82533; 82553; 82805; 82947; 83605; 83615; 83690; 83735; 84165; 84166; 84439; 84443; 84484; 84550; 85014; 85018; 85025; 85610; 85730; 86021; 86334; 86361; 86850; 86900; 86901; 87040; 87070; 87077; 87086; 87088; 87186; 87205; 87536; 93005; 97110; 97161; 97530; 99285; C9113; J0692; J1100; J1170; J2405; J3370; J3480; J7030; J7050; J7512; J7799; P9016; U0003

== ENCOUNTER 2022-04-23 19:17 | Inpatient (IN) | payer OTHER ==
--- OUTSIDE RECORDS SUMMARY | 2022-04-23 19:20 | XMS REPORT | Continuity of Care Document ---
:1980 Author Organization [facility] t Address [address] Hernandez [address] [place] [id number] Care Team Providers Name Role Phone Carlene-Mbayo_A_AH Attending Clinician Unavailable Carlene-Mbayo_A_AH Admitting Clinician Unavailable Payers Payer Name Policy Type Policy Number Effective Date Expiration Date [facility] [place] [id number] (MEDIC[facility] REPLACEMENT/ADVANT AGE - [...] 2021-03-15 2021-03-15 Outpatient Carlene-Mbayo VFP VFP [phone] 10:30:00 10:30:00 _A_AH [id number] Family Practic e 2020-01-04 2020-01-04 Outpatient Carlene-Mbayo [facility]FP [facility] [phone] 07:21:00 07:21:00 _A_AH [id number] Family Practic e 2020-01-04 2020-01-04 Outpatient Carlene-Mbayo [facility]FP [facility] [phone] 07:21:00 07:21:00 _A_AH [id number] Family Practic e Results This patient has no known results.
[2022-04-23] MEDS ORDERED: NA CHLORIDE 0.9% 1,000 ML ONE ×2 (19:36→22:57)
[2022-04-23] MEDS ORDERED: ACETAMINOPHEN 500 MG TAB ONE (19:36)
[2022-04-23 20:00] LABS: Absolute Lymphocytes (CBC) 0.5 K/uL (0.7-4.9); Hematocrit 31.9 % (36.0-45.0); Lymphocytes % 8.8 % (15.3-44.8); MCV 90.5 fL (80-100); MPV 7.4 fL (7.6-11.3); RBC Red Blood Cell Count 3.52 M/uL (3.86-4.86)
[2022-04-23 20:13] LABS: Protime INR 1.12
[2022-04-23 20:17] LABS: Albumin 2.9 g/dL (3.4-5.0); Bilirubin Total 0.4 mg/dL (0.2-1.0); Potassium 3.2 mmol/L (3.5-5.1); Protein, Total 7.6 g/dL (6.4-8.2)
[2022-04-23] MEDS ORDERED: PIPERACIL/TAZO 3.375 GM VIAL IV ONE (20:24)
[2022-04-23] MEDS ORDERED: NA CHLORIDE 0.9% 100 ML ONE (20:24)
[2022-04-23 20:43] LABS: Urine Blood Negative (Negative); Urine Glucose Negative (Negative); Urine Protein 3+ (Negative); Urine Specific Gravity >=1.030 (1.005-1.030)
[2022-04-23 21:01] LABS: Urine Amorphous Sediment 1+ /HPF (NONE SEEN); Urine Bacteria <20 /HPF (<20); Urine Mucus HEAVY /HPF (NONE SEEN); Urine RBC NONE SEEN /HPF (NONE SEEN)
--- NOTE | 2022-04-23 22:03 | RAD REPORT ---
EXAM DESCRIPTION: Yony Single View04/23/2022 8:19 pm CLINICAL HISTORY: Fever COMPARISON: January 2022 FINDINGS: The lungs appear clear of acute infiltrate. The heart is normal size IMPRESSION: No acute abnormalities displayed
--- NOTE | 2022-04-23 22:08 | RAD REPORT ---
EXAM DESCRIPTION: CT - Chest For Pe Angio - 04/23/2022 9:59 pm CLINICAL HISTORY: Chest pain COMPARISON: January 2022 TECHNIQUE: Dynamically enhanced axial 3 mm thick images of the chest were obtained during administra tion of <100> mL Isovue 370 IV contrast. Coronal and oblique reconstruction images were generated and reviewed. Exam utilizes a protocol for optimal evaluation of pulmonary arterial tree. Maximum intensity projections 3D imaging was utilized All CT scans are performed using dose optimization technique as appropriate and may include automated exposure control or mA/KV adjustment according to patient size. FINDINGS: A pulmonary embolus is not seen. A thoracic aortic aneurysm is not noted. A pleural effusion is not seen. A pericardial effusion is not seen. Mild right middle lobe atelectasis \ The esophagus is mildly distended and contains fluid IMPRESSION: Negative for a pulmonary embolism. The esophagus is mildly distended and contains fluid
--- NOTE | 2022-04-23 22:14 | RAD REPORT ---
EXAM DESCRIPTION: CT - Abdomen Pelvis W Contrast - 04/23/2022 9:59 pm CLINICAL HISTORY: Abdominal pain/sepsis COMPARISON: 2014 TECHNIQUE: Computed axial tomography of the abdomen pelvis was obtained. 100 cc Isovue-300 was admin istered intravenously. Oral contrast was not requested which limits evaluation of bowel and appendix All CT scans are performed using dose optimization technique as appropriate and may include automated exposure control or mA/KV adjustment according to patient size. FINDINGS: Cholecystectomy. The liver, spleen, pancreas, adrenal and kidneys appear unremarkable. There is no evidence of diverticulitis. No adnexal mass IMPRESSION: No acute abnormality is displayed.
--- NOTE | 2022-04-23 22:51 | ER ---
Nurse's Notes [facility] Name: Dee Espinosa Age: 41 yrs Sex: Female : 1980 Arrival Date: 04/23/2022 Time: 19:23 Bed 20 Private MD: Diagnosis: Fever, unspecified;Altered mental status, unspecified Presentation: 04/23 19:20 Chief complaint: EMS states: Called by patient's family for lethargy x 1 day, patient lp1 with hx of HIV; Patient complaint of abdominal pain; Per EMS, patient HR 150's, temp of 103, O2 at 90% on RA. 19:20 Coronavirus screen: fatigue, fever. Ebola Screen: No symptoms or risks identified at 1 this time. Initial Sepsis Screen: Does the patient meet any 2 criteria? Temp <36.0*C (96.8*F)) or > 38.3*C (100.9*F). HR > 90 bpm. Yes Does the patient have a suspected source of infection? Yes: Productive cough/pneumonia Acute abdominal pain. Risk Assessment: Do you want to hurt yourself or someone else? Patient reports no desire to harm self or others. Onset of symptoms was April 23, 2022. 19:20 Method Of Arrival: EMS: [facility] lp1 19:20 Acuity: EDUARD 2 lp1 19:28 Note code Sepsis called. bb 19:30 Care prior to arrival: IV initiated. 20 GA, in the left antecubital area, Glucose lp1 check: 107 Oxygen administered. via nasal cannula. Historical: - Allergies: 19:40 RISPERIDONE; lp1 - Home Meds: 19:40 None [Active]; lp1 - PMHx: 19:40 Anxiety; Asthma; HIV; lp1 - PSHx: 19:40 bowel resection; lp1 - Immunization history:: unknown. - Social history:: Smoking status: Patient denies any tobacco usage or history of. - Family history:: not pertinent. - Hospitalizations: : No recent hospitalization is reported. Screenin:35 Abuse screen: Denies threats or abuse. Nutritional screening: No deficits noted. bb Tuberculosis screening: No symptoms or risk factors identified. Fall Risk None identified. Assessment: 19:30 General: Appears ill, slender, Behavior is flat, listless. Pain: Unable to use pain bb scale. FLACC scale score is 0 out of 10. Neuro: Level of Consciousness is listless, Oriented to person. Cardiovascular: Capillary refill < 3 seconds Patient's skin is warm and dry. Rhythm is sinus tachycardia. Respiratory: Respiratory effort is unlabored, shallow, weak. Respiratory: Breath sounds are clear bilaterally. GI: Abdomen is non-distended, Bowel sounds present X 4 quads. Abd is soft and non tender X 4 quads. Derm: Skin is clammy, Skin is pale, Skin temperature is hot. Musculoskeletal: Circulation, motion, and sensation intact. 20:30 Reassessment: No changes from previously documented assessment. pt resting quietly, IV bb sites intact, patent, with fluids infusing. 21:39 Reassessment: pt to CT scan via stretcher accompanied by neurology technician. bb 22:30 Reassessment: pt sleeping, eyes closed, resp unlabored. bb 23:30 Reassessment: pt sleeping, eyes closed, resp unlabored IV site intact no erythema or bb edema noted. 04/24 01:14 Reassessment: pt is awake. oriented x 1, provider at bedside for LP. bb 02:25 Reassessment: pt clothing and ID cards placed in pt belonging bag at bedside. bb Vital Signs: 04/23 19:20 BP 114 / 80; Pulse 150; Resp 16; Temp 102.1(O); Pulse Ox 90% on R/A; Weight 40.82 kg lp1 (R); 19:41 Pulse Ox 93% on 3 lpm NC; lp1 20:26 BP 113 / 83; Pulse 139; Resp 22 S; Temp 100.3(O); Pulse Ox 99% on 2 lpm NC; bb 21:09 BP 101 / 65; Pulse 120; Resp 24 S; Pulse Ox 99% on 2 lpm NC; bb 22:33 BP 95 / 63; Pulse 109; Resp 24 S; Pulse Ox 100% on 2 lpm NC; bb 04/24 00:05 BP 92 / 68; Pulse 97; Resp 26 S; Pulse Ox 97% on 2 lpm NC; bb 01:13 BP 100 / 71; Pulse 95; Resp 24; Temp 97.8(O); Pulse Ox 97% on 2 lpm NC; bb 02:26 BP 106 / 69; Pulse 111; Resp 20 S; Pulse Ox 99% on 2 lpm NC; bb [place] Coma Score: 04/23 19:35 Eye Response: spontaneous(4). Verbal Response: incomprehensible(2). Motor Response: bb localizes pain(5). Total: 11. ED Course: 19:23 Patient arrived in ED. ll1 19:24 Brian Sexton MD is Attending Physician. rn 19:28 Sherry Mays RN is Primary Nurse. bb 19:35 Maintain EMS IV. Dressing intact. Good blood return noted. Site clean \T\ dry. Gauge \T\ bb site: 20g L AC. 19:38 Arm band placed on right wrist. lp1 19:40 Triage completed. lp1 19:40 Initial lab(s) drawn, by me, sent to lab. bb 19:41 Patient has correct armband on for positive identification. Placed in gown. Bed in low lp1 position. Side rails up X2. Client placed on continuous cardiac and pulse oximetry monitoring. NIBP monitoring applied. 20:00 Inserted saline lock: 20 gauge in right antecubital area, using aseptic technique. bb 20:15 First set of blood cultures drawn by me, Second set of blood cultures drawn by me. bb 20:21 Chest Single View XRAY In Process Unspecified. EDMS 20:30 Straight cath inserted, using sterile technique, 16 Fr. Specimen obtained. bb 22:01 Chest For Pe Angio In Process Unspecified. EDMS 22:01 Abdomen In Process Unspecified. EDMS 22:50 Srinivasa Watson MD is Hospitalizing Provider. rn 04/24 01:50 Assist provider with lumbar puncture: Set up LP tray. Performed by Morgan ESCALONA CSF bb is clear. Procedure was successful. Patient tolerated well. 02:26 Cleaned of incontinence. Linen changed. bb 02:27 Patient admitted, IV remains in place. bb 02:28 CSF Cell Count Sent. bb 02:28 Spinal Fluid Profile Sent. bb 02:28 Csf Culture Sent. bb 02:28 Csf Total Protein Sent. bb Administered Medications: 04/23 19:40 Drug: Acetaminophen 1000 mg Route: PO; bb 20:30 Follow up: Response: Temperature is decreased bb 19:40 Drug: NS 0.9% (30 ml/kg) 30 ml/kg Route: IV; Rate: bolus; Site: left antecubital; bb 23:04 Follow up: IV Status: Completed infusion; IV Intake: 1200ml bb 20:16 Drug: Zosyn (piperacillin-tazobactam) 3.375 grams Route: IVPB; Infused Over: 60 mins; bb Site: right antecubital; 21:11 Follow up: IV Status: Completed infusion; IV Intake: 100ml bb 23:04 Drug: NS 0.9% 1000 ml Route: IV; Rate: 1000 ml; Site: right antecubital; bb 04/24 01:15 Follow up: IV Status: Completed infusion; IV Intake: 950ml bb 04:34 Not Given (documented [facility]): vancoMYCIN 1 grams IVPB once over 2 hrs bb 04:36 Drug: Rocephin (cefTRIAXone) 2 grams Route: IV; Rate: calculated rate; Site: left bb antecubital; 04:52 Follow up: IV Status: Completed infusion; IV Intake: 50ml bb Medication: 04/23 19:41 VIS not applicable for this client. lp1 Intake: 21:11 IV: 100ml; Total: 100ml. bb 23:04 IV: 1200ml; Total: 1300ml. bb 04/24 01:15 IV: 950ml; Total: 2250ml. bb 04:52 IV: 50ml; Total: 2300ml. bb Outcome: 04/23 22:51 Decision to Hospitalize by Provider. rn 04/24 02:27 Instructed on the need for admit. bb 02:27 Admitted to ER Hold. Please see [facility] for further documentation. bb 02:27 Condition: stable 16:46 Patient left the ED. awad Signatures: Dispatcher [employer] EDSherry Lott RN RN bb Nieto, Roman, MD MD rn Pena, Laura, RN RN lp1 Viki Esposito RN RN ll1 Evi Titus RN RN awad Corrections: (The following items were deleted from the chart) 04/23 21:49 21:28 In radiology for Abdomen . EDAR EDMS
--- NOTE | 2022-04-23 22:51 | EDPHYS ---
Physician Documentation [facility] Name: Dee Espinosa Age: 41 yrs Sex: Female : 1980 Arrival Date: 04/23/2022 Time: 19:23 Bed 20 Private MD: ED Physician Brian Sexton HPI: 04/23 19:29 This 41 yrs old Female presents to ER via Unassigned with complaints of Fever, rn AMS. 19:29 The patient reports fever, that was measured at 103 degrees Fahrenheit. Onset: The rn symptoms/episode began/occurred at an unknown time. Modifying factors: there are no obvious modifying factors. Associated signs and symptoms: Pertinent positives: cough, shortness of breath. 19:30 Severity of symptoms: At their worst the symptoms were moderate in the emergency rn department the symptoms have improved. It is unknown whether or not the patient has had similar symptoms in the past. The patient has not recently seen a physician. EMS reports family called 911 for lethargy "all day", patient not sure when started feeling ill, reports sob, cough, generalized weakness. Denies sick contacts. EMS reports hypotensive when picked her up, gave some LR in IV and now BP 120s systolic.. Historical: - Allergies: 19:40 RISPERIDONE; lp1 - Home Meds: 19:40 None [Active]; lp1 - PMHx: 19:40 Anxiety; Asthma; HIV; lp1 - PSHx: 19:40 bowel resection; lp1 - Immunization history:: unknown. - Social history:: Smoking status: Patient denies any tobacco usage or history of. - Family history:: not pertinent. - Hospitalizations: : No recent hospitalization is reported. ROS: 19:30 Constitutional: + fever Eyes: Negative for injury, pain, redness, and discharge, Neck: rn Negative for injury, pain, and swelling, Cardiovascular: Negative for chest pain, palpitations, and edema, Respiratory: + cough and sob Abdomen/GI: + abd pain, neg for vomiting/diarrhea MS/Extremity: Negative for injury and deformity, Skin: Negative for injury, rash, and discoloration, Neuro: Negative for headache, numbness, tingling, and seizure. Exam: 19:30 Constitutional: Cachectic female, somnolent, slow to respond, appears ill Head/Face: rn Normocephalic, atraumatic. Eyes: Periorbital areas with no swelling, redness, or edema. ENT: very dry MM, + oral thrush Cardiovascular: Tachycardic, regular. No pulse deficits. Respiratory: No increased work of breathing, no retractions or nasal flaring. Abdomen/GI: Soft, non-tender, non-distended Skin: Cool, dry MS/ Extremity: Pulses equal, no cyanosis. Neuro: Somnolent, slow to respond, oriented to person and place, not time, moves all 4 extremities to command, very weak throughout but equal Vital Signs: 19:20 BP 114 / 80; Pulse 150; Resp 16; Temp 102.1(O); Pulse Ox 90% on R/A; Weight 40.82 kg lp1 (R); 19:41 Pulse Ox 93% on 3 lpm NC; lp1 20:26 BP 113 / 83; Pulse 139; Resp 22 S; Temp 100.3(O); Pulse Ox 99% on 2 lpm NC; bb 21:09 BP 101 / 65; Pulse 120; Resp 24 S; Pulse Ox 99% on 2 lpm NC; bb 22:33 BP 95 / 63; Pulse 109; Resp 24 S; Pulse Ox 100% on 2 lpm NC; bb 04/24 00:05 BP 92 / 68; Pulse 97; Resp 26 S; Pulse Ox 97% on 2 lpm NC; bb 01:13 BP 100 / 71; Pulse 95; Resp 24; Temp 97.8(O); Pulse Ox 97% on 2 lpm NC; bb 02:26 BP 106 / 69; Pulse 111; Resp 20 S; Pulse Ox 99% on 2 lpm NC; bb [place] Coma Score: 04/23 19:35 Eye Response: spontaneous(4). Verbal Response: incomprehensible(2). Motor Response: bb localizes pain(5). Total: 11. Procedures: 04/24 01:38 Lumbar Puncture: Patient placed in left lateral decubitus position. Prepped with rn Betadine. Draped using sterile technique. Collected 8 ml's of clear fluid. Sample sent to lab. Puncture site dressed with band aid, Patient tolerated well. Opening pressure 23. MDM: 04/23 19:24 Patient medically screened. rn 20:12 ED course: Pt reevaluated after placed in room, now complaining more about abd pain and rn adds symptom of vomiting. CT abdomen added, fluids being administered, BP improved, seems more alert. . 22:48 Differential diagnosis: viral Infection, bacterial infection, URI, pneumonia UTI, rn gastroenteritis. Data reviewed: vital signs, nurses notes, lab test result(s), radiologic studies, CT scan, plain films, and as a result, I will admit patient. Counseling: I had a detailed discussion with the patient and/or guardian regarding: the historical points, exam findings, and any diagnostic results supporting the discharge/admit diagnosis, lab results, radiology results, the need for further work-up and treatment in the hospital. Response to treatment: the patient's symptoms have mildly improved after treatment, and as a result, I will admit patient. Admission orders: after a detailed discussion of the patient's condition and case, the admit orders are written by me. ED course: No source of infection found at this point, patient more alert after fluids but still slow to respond. Will admit to hospitalist service. . 23:02 ED course: Normal lactate. Normal WBC. Pt improved after fluids, no need for repeat rn lactate, MAP > 65, no need for pressors at this time. Sepsis reevaluation complete. . 04/23 19:26 Order name: Blood Culture Adult (2) rn 04/23 19:26 Order name: CBC with Diff; Complete Time: 20:10 rn 04/23 19:26 Order name: CMP; Complete Time: 23:20 rn 04/23 19:26 Order name: Lactate; Complete Time: 20:46 rn 04/23 19:26 Order name: Protime (+inr); Complete Time: 20:46 rn 04/23 19:26 Order name: Ptt, Activated; Complete Time: 20:46 rn 04/23 19:26 Order name: Urine Culture rn 04/23 19:26 Order name: Urine Microscopic Only; Complete Time: 21:06 rn 04/23 19:26 Order name: Flu; Complete Time: 21:58 rn 04/23 19:28 Order name: SARS-COV-2 RT PCR (Document "Date of Onset" if Symptomatic); Complete Time: rn :58 04/23 20:43 Order name: Urine Dipstick-Ancillary; Complete Time: 20:46 EDMS 04/23 22:49 Order name: Lipase; Complete Time: 00:14 la1 04/23 19:26 Order name: Chest Single View XRAY; Complete Time: 22:32 rn 04/23 20:02 Order name: CT Abd/Pelvis - IV Contrast Only rn 04/23 22:49 Order name: Procalcitonin; Complete Time: 00:14 la1 04/23 23:02 Order name: Urine Drug Screen; Complete Time: 00:14 bb 04/24 01:36 Order name: CSF Cell Count rn 04/24 01:36 Order name: Csf Total Protein rn 04/24 01:36 Order name: Csf Culture rn 04/24 01:36 Order name: Spinal Fluid Profile rn 04/24 02:56 Order name: CSF Glucose; Complete Time: 04:19 EDMS 04/24 03:39 Order name: Body Fluid Cell Count; Complete Time: 04:19 EDMS 04/24 06:41 Order name: CBC with Automated Diff EDMS 04/24 06:54 Order name: Comprehensive Metabolic Panel EDMS 04/24 06:54 Order name: C-Reactive Protein EDMS 04/24 09:09 Order name: CBC Smear Scan EDMS 04/24 16:45 Order name: Miscellaneous Test Lab EDMS 04/23 19:26 Order name: Accucheck; Complete Time: 20:28 rn 04/23 19:26 Order name: Cardiac monitoring; Complete Time: 20:28 rn 04/23 19:26 Order name: EKG - Nurse/Tech; Complete Time: 20:28 rn 04/23 19:26 Order name: IV Saline Lock - Large Bore; Complete Time: 20:28 rn 04/23 19:26 Order name: Labs collected and sent; Complete Time: 20:28 rn 04/23 19:26 Order name: O2 Per Protocol; Complete Time: 20:28 rn 04/23 19:26 Order name: O2 Sat Monitoring; Complete Time: 20:28 rn 08 19:26 Order name: Urine Dipstick-Ancillary (obtain specimen); Complete Time: 20:47 rn 04/23 19:26 Order name: Urine Test (obtain specimen); Complete Time: 20:47 rn 08 21:27 Order name: Chest For Pe Angio; Complete Time: 22:32 EDMS 04/23 21:51 Order name: Abdomen ; Complete Time: 22:32 EDMS 04/24 01:36 Order name: LP Consents; Complete Time: 02:28 rn 04/24 01:36 Order name: LP Setup; Complete Time: 02: rn Administered Medications: 19:40 Drug: Acetaminophen 1000 mg Route: PO; bb 20:30 Follow up: Response: Temperature is decreased bb 19:40 Drug: NS 0.9% (30 ml/kg) 30 ml/kg Route: IV; Rate: bolus; Site: left antecubital; bb 23:04 Follow up: IV Status: Completed infusion; IV Intake: 1200ml bb 20:16 Drug: Zosyn (piperacillin-tazobactam) 3.375 grams Route: IVPB; Infused Over: 60 mins; bb Site: right antecubital; 21:11 Follow up: IV Status: Completed infusion; IV Intake: 100ml bb 23:04 Drug: NS 0.9% 1000 ml Route: IV; Rate: 1000 ml; Site: right antecubital; bb 04/24 01:15 Follow up: IV Status: Completed infusion; IV Intake: 950ml bb 04:34 [facility] vancoMYCIN 1 grams IVPB once over 2 hrs bb 04:36 Drug: Rocephin (cefTRIAXone) 2 grams Route: IV; Rate: calculated rate; Site: left bb antecubital; 04:52 Follow up: IV Status: Completed infusion; IV Intake: 50ml bb Disposition Summary: 04/23/22 22:51 Hospitalization Ordered Hospitalization Status: Inpatient Admission rn Provider: Srinivasa Watson rn Condition: Stable rn Problem: new rn Symptoms: have improved rn Bed/Room Type: Standard rn Location: Telemetry/MedSurg (Inpatient)(04/24/22 15:35) eb Room Assignment: 214(04/24/22 15:35) eb Diagnosis - Fever, unspecified rn - Altered mental status, unspecified rn Forms: - Medication Reconciliation Form rn - SBAR form rn Signatures: Dispatcher [employer] EDMS Sherry Mays RN RN bb Brian Sexton MD MD rn Pena, Laura, RN RN lp1 Morgan Landeros, VISUAL BASIC .NET DEVELOPER-C VISUAL BASIC .NET DEVELOPER-Cla1 Kylie Damon RN RN Roxi Alvarenga Corrections: (The following items were deleted from the chart) 04/23 21:27 20:07 Thorax W/ Con+CT.RAD.BRZ ordered. EDMS EDMS 21:49 20:08 Abdomen ordered. EDMS EDMS 04/24 00:35 04/23 22:51 Telemetry/MedSurg (Inpatient) rn 04/24 00:35 04/23 22:51 rn 04/24 15:35 00:35 BR ER HOLD cg eb 15:35 00:35 ERHOLD- cg eb
[2022-04-23 23:35] LABS: Barbiturates NEGATIVE (NEGATIVE); Benzodiazepines POSITIVE (NEGATIVE); Cocaine NEGATIVE (NEGATIVE); METHAMPHETAM NEGATIVE (NEGATIVE); Methadone NEGATIVE (NEGATIVE); Opiates NEGATIVE (NEGATIVE); Phencyclidine NEGATIVE (NEGATIVE); THC Cannibis POSITIVE (NEGATIVE)
--- NOTE | 2022-04-24 00:40 | P.HP ---
Certification for Inpatient Patient admitted to: Inpatient With expected LOS: >2 Midnights Patient will require the following post-hospital care: None Practitioner: I am a practitioner with admitting privileges, knowledge of patient current condition, hospital course, and medical plan of care. Services: Services provided to patient in accordance with Admission requirements found in Title 42 Section 412.3 of the Code of Federal Regulations Patient History Date of Service: 04/24/22 Reason for admission: Altered mental status, fever History of Present Illness: 41-year-old female history of HIV, medical noncompliance presents emergency department for altered mental status, lethargy, fever. T-max was 103 at home did have a fever here at the hospital initially heart rate was 150. Her labs so far have been remarkable only for mild hypokalemia, normocytic anemia negative for UTI urine drug screen positive for benzos and THC she had CT of her chest abdomen and pelvis which was negative for any acute findings. Patient very lethargic still with altered mental status temperature is improved blood pressure is borderline no source of infection has been identified patient given broad-spectrum antibiotics will attempt lumbar puncture to rule out meningitis given fever, altered mental status and immunocompromise status. Will admit with infectious disease consult on broad-spectrum antibiotics and await results of home blood cultures which were obtained in the emergency department. Allergies risperidone [From Risperdal] Allergy (Verified 08/16/19 10:22) Anaphylaxis Home Medications: Benzonatate [Tessalon Perle*] 100 mg PO TID PRN #60 cap 02/04/22 Docusate [Colace Cap*] 100 mg PO BID #60 cap 02/04/22 Ensure High Protein 237 ml PO BID #30 can 02/04/22 Nystatin 5 ml PO TID #473 ml 02/04/22 Pantoprazole [Protonix Tab*] 40 mg PO BIDAC #60 tab 02/04/22 Smz./Tmp. [Bactrim Ds 800 MG/160 MG*] 2 tab PO TID #84 tab 02/04/22 predniSONE [Prednisone*] 20 mg PO DAILY #7 tab 02/04/22 traMADol HCL [Ultram*] 50 mg PO Q6H PRN #16 tab 02/04/22 - Past Medical/Surgical History Diabetic: No -: Irritable bowel syndrome -: Persistent nausea/vomiting -: Depression/anxiety -: History of suicide attempt -: Arthritis -: Bipolar disorder -: HIV -: Cholecystectomy -: Tubal ligation Psychosocial/ Personal History: Unknown - Family History Mother -: Cancer Notes: Colon - Social History Alcohol use: No CD- Drugs: No Caffeine use: Yes Place of Residence: Home Review of Systems is unable to be obtained Physical Examination - Physical Exam General: Oriented x1, Other (Somnolent) HEENT: Atraumatic, Other (Mucous membranes dry, oral thrush noted) Neck: Supple Respiratory: Clear to auscultation bilaterally, Normal air movement Cardiovascular: No edema, Normal S1 S2 Capillary refill: <2 Seconds Gastrointestinal: Normal bowel sounds, Soft and benign Musculoskeletal: No contractures, No erythema, No tenderness Integumentary: No significant lesion, No tenderness/swelling, No erythema Neurological: Normal tone, Sensation intact - Studies Laboratory Data (last 24 hrs) 04/23/22 19:40: Lipase 184 04/23/22 19:40: PT 12.3, INR 1.12, APTT 36.6 04/23/22 19:40: Sodium 142, Potassium 3.2 L, BUN 24 H, Creatinine 0.76, Glucose 101, Total Bilirubin 0.4, AST 71 H, ALT 56, Alkaline Phosphatase 80 04/23/22 19:40: WBC 6.0, Hgb 10.3 L, Hct 31.9 L, Plt Count 197 Microbiology Data (last 24 hrs): 04/23/22 19:50 Nasopharnyx Influenza Type A Antigen Screen - Final 04/23/22 19:50 Nasopharnyx Influenza Type B Antigen Screen - Final Assessment and Plan - Plan Assessment: Fever unknown origin rule out sepsis History HIV with medical noncompliance Altered mental status Benzodiazepine/THC abuse Normocytic anemia Plan: Fever unknown origin rule out sepsis: Blood cultures obtained no other source of infection identified urine negative CT chest abdomen pelvis negative for any acute findings we will attempt to obtain CSF to rule out meningitis. Infectious disease to be consulted we will continue broad-spectrum antibiotics vancomycin/cefepime until blood cultures negative/other source have been eliminated. History HIV with medical noncompliance: We will need to follow-up with outpatient infectious disease Altered mental status: Possibly related to infection versus benzodiazepine/THC abuse. Benzodiazepine/THC abuse: Will counselor at law on need for cessation. Normocytic anemia: Likely anemia of chronic disease transfuse to maintain hemoglobin greater than 7. DVT PPX: Lovenox Code status: Full code Discharge Plan: Home Plan to discharge in: 72 Hours - Advance Directives Does patient have a Living Will: No Does patient have a Durable POA for Healthcare: No - Code Status/Comfort Care Code Status Assessed: Yes (Full code) Critical Care: No Time Spent Managing Pts Care (In Minutes): 70
[2022-04-24] MEDS ORDERED: VANCOMYCIN 1 GM in NA CHLORIDE 0.9% 250 ML IVPB SCH (01:28)
[2022-04-24] MEDS ORDERED: ONDANSETRON 4 MG/2 ML VIAL IV PRN (01:28)
[2022-04-24] MEDS: NA CHLORIDE 0.9% 1,000 ML IV SCH ×3 (01:28→17:54)
[2022-04-24] MEDS ORDERED: VANCOMYCIN 750 MG in NA CHLORIDE 0.9% 250 ML IVPB ONE (01:45)
[2022-04-24 02:56] LABS: CSF Glucose 48 mg/dL (40-70)
[2022-04-24] MEDS ORDERED: VANCOMYCIN 1 GM/VIAL ONE (03:02)
[2022-04-24] MEDS ORDERED: NA CHLORIDE 0.9% 250 ML ONE (03:02)
[2022-04-24] MEDS ORDERED: NA CHLORIDE 0.9% 1,000 ML ONE (03:02)
[2022-04-24 03:37] LABS: Appearance CLEAR (CLEAR); Body Fluid Source CSF; Color of fluid Colorless (COLORLESS); Fluid Total Volume 8 ml
[2022-04-24 03:38] LABS: Appearance CLEAR (CLEAR); Body Fluid Source CSF; Body Fluid WBC 2 /mm^3; Color of fluid Colorless (COLORLESS)
[2022-04-24 04:14] VITALS: BMI 16.9
[2022-04-24] MEDS ORDERED: CEFTRIAXONE 1000 MG/VIAL ONE (04:43)
[2022-04-24] MEDS ORDERED: NA CHLORIDE 0.9% 50 ML ONE (04:43)
[2022-04-24 06:37] LABS: Absolute Lymphocytes (CBC) 0.4 K/uL (0.7-4.9); Hematocrit 23.8 % (36.0-45.0); Lymphocytes % 7.3 % (15.3-44.8); MCV 89.6 fL (80-100); MPV 7.3 fL (7.6-11.3); RBC Red Blood Cell Count 2.66 M/uL (3.86-4.86)
[2022-04-24 06:52] LABS: Albumin 2.2 g/dL (3.4-5.0); Bilirubin Total 0.2 mg/dL (0.2-1.0); C-Reactive Protein 43.7 mg/L (<3.00); Potassium 3.4 mmol/L (3.5-5.1); Protein, Total 5.8 g/dL (6.4-8.2)
[2022-04-24] MEDS: CEFEPIME 1 GM in NA CHLORIDE 0.9% 100 ML IV SCH ×2 (08:38→21:49)
[2022-04-24] MEDS: ENOXAPARIN 40 MG/0.4 ML SQ SCH (08:38)
[2022-04-24] MEDS ORDERED: NA CHLORIDE 0.9% 100 ML ONE (08:53)
[2022-04-24] MEDS ORDERED: ENOXAPARIN 40 MG/0.4 ML SQ ONE (08:53)
[2022-04-24] MEDS ORDERED: CEFEPIME 1 GM/VIAL ONE (08:54)
[2022-04-24 09:08] LABS: Platelet Estimate ADEQ; White Blood Cell Scan OK (OK)
[2022-04-24 09:09] LABS: Anisocytosis 1+; Blood Morphology Comment NOTED (NOT SEEN)
[2022-04-24] MEDS ORDERED: LORazepam 2 MG/ML VIAL ONE (12:44)
[2022-04-24] MEDS ORDERED: LORazepam 2 MG/ML VIAL IV ONE (13:00)
--- NOTE | 2022-04-24 14:18 | EKG ---
Test Date: 2022-04-23 Test Time: 19:54:56 Spinner Continuous: JUANY MEASUREMENT RESULTS: Intervals: Rate: 144 MI: 130 QRSD: 64 QT: 274 QTc: 424 [place]: P: 48 MI: 130 QRS: 54 T: 55 INTERPRETIVE STATEMENTS: Sinus tachycardia Otherwise normal ECG Compared to ECG 01/27/2022 13:03:48 No significant changes Electronically Signed On 04-24-22 14:18:42 CDT by Giuliano Curry
--- NOTE | 2022-04-24 16:43 | P.CNS ---
Date of Consult: 04/24/22 Chief Complaint: Altered mental status, fever History of Present Illness: The patient is a 41-year-old female with a past medical history of HIV noncompliant with medication who presented to the emergency department secondary to altered mental status, lethargic, and fever. Patient very altered at bedside, oriented only x1 to self. As such all history obtained via chart review. Per chart review patient had a T-max at home of 103 F however did not have a fever at the hospital. She was tachycardic with a pulse in the 150 range. Labs have been remarkable only for mild hypokalemia and normocytic anemia. Drug screen positive for benzos and THC. Abdominal/pelvis/chest CT all negative for any acute processes. Lumbar puncture was performed, cerebrospinal fluid analysis showed only elevated protein, cultures pending. Blood and urine cultures also pending however urine analysis grossly negative. Patient still tachycardic, T-max today of 99.3. WBC 5.6, hemoglobin 8.1, creatinine 0.5, Pro- Kristopher 0.15. Patient [place] started on vancomycin and cefepime. CD4 count ordered. Allergies risperidone [From Risperdal] Allergy (Verified 08/16/19 10:22) Anaphylaxis Home Medications: Benzonatate [Tessalon Perle*] 100 mg PO TID PRN #60 cap 02/04/22 Docusate [Colace Cap*] 100 mg PO BID #60 cap 02/04/22 Ensure High Protein 237 ml PO BID #30 can 02/04/22 Nystatin 5 ml PO TID #473 ml 02/04/22 Pantoprazole [Protonix Tab*] 40 mg PO BIDAC #60 tab 02/04/22 Smz./Tmp. [Bactrim Ds 800 MG/160 MG*] 2 tab PO TID #84 tab 02/04/22 predniSONE [Prednisone*] 20 mg PO DAILY #7 tab 02/04/22 traMADol HCL [Ultram*] 50 mg PO Q6H PRN #16 tab 02/04/22 - Past Medical/Surgical History Diabetic: No -: Irritable bowel syndrome -: Persistent nausea/vomiting -: Depression/anxiety -: History of suicide attempt -: Arthritis -: Bipolar disorder -: HIV -: Cholecystectomy -: Tubal ligation Psychosocial/ Personal History: Unknown - Family History Mother Medical History: Cancer Notes: Colon - Social History Smoking Status: Unknown if ever smoked Alcohol use: No CD- Drugs: No Caffeine use: Yes Place of Residence: Home Review of Systems is unable to be obtained Physical Examination Temp Pulse Resp BP Pulse Ox 99.3 F 129 H 22 H 132/85 99 04/24/22 08:00 04/24/22 08:00 04/24/22 08:00 04/24/22 08:00 04/24/22 08:00 General: Cachectic, Confused HEENT: Atraumatic Neck: Supple Respiratory: Clear to auscultation bilaterally, Normal air movement Cardiovascular: Normal pulses, Other (Tachycardia) Gastrointestinal: Normal bowel sounds, Soft and benign Musculoskeletal: No clubbing, No swelling, No contractures Integumentary: No rashes, No breakdown Laboratory Data (last 24 hrs) 04/23/22 19:40: Lipase 184 04/23/22 19:40: PT 12.3, INR 1.12, APTT 36.6 04/23/22 19:40: Sodium 142, Potassium 3.2 L, BUN 24 H, Creatinine 0.76, Glucose 101, Total Bilirubin 0.4, AST 71 H, ALT 56, Alkaline Phosphatase 80 04/23/22 19:40: WBC 6.0, Hgb 10.3 L, Hct 31.9 L, Plt Count 197 Conclusions/Impression: Antibiotics: Vancomycin: 9current Cefepime: 6/9current Assessment/plan Altered mental status with concern for infection in an immunocompromise patient [place] CT negative. Blood and urine cultures pending, urine analysis grossly negative. Tox screen positive for benzos and THC -CSF analysis showed elevated protein, culture pending Recommend continuing empiric antibiotics until cultures are obtained Oral thrush Continue nystatin oral solution HIV Patient is noncompliant with medications. WBC within normal range, CD4 count pending. Anemia Continue to monitor H&H Plan of care discussed Dr. Salamanca Thank you for consultation
[2022-04-24] MEDS: NYSTATIN 500,000 UNIT/5 ML UDC PO SCH (21:49)
[2022-04-24] MEDS: VANCOMYCIN 750 MG in NA CHLORIDE 0.9% 150 ML IVPB SCH (21:50)
[2022-04-24] MEDS: ACETAMINOPHEN 650MG/RECT SUPP PR PRN (21:50)
[2022-04-25] MEDS: NA CHLORIDE 0.9% 1,000 ML IV SCH ×4 (01:28→22:14)
[2022-04-25 07:06] LABS: Absolute Lymphocytes (CBC) 0.3 K/uL (0.7-4.9); Hematocrit 23.5 % (36.0-45.0); Lymphocytes % 8.1 % (15.3-44.8); MCV 88.6 fL (80-100); MPV 7.3 fL (7.6-11.3); RBC Red Blood Cell Count 2.66 M/uL (3.86-4.86)
[2022-04-25 07:34] LABS: Albumin 2.1 g/dL (3.4-5.0); Bilirubin Total 0.3 mg/dL (0.2-1.0); Protein, Total 5.6 g/dL (6.4-8.2)
[2022-04-25 07:35] LABS: Potassium 2.6 mmol/L (3.5-5.1)
[2022-04-25] MEDS: CEFEPIME 1 GM in NA CHLORIDE 0.9% 100 ML IV SCH ×2 (09:56→22:08)
[2022-04-25] MEDS: ENOXAPARIN 40 MG/0.4 ML SQ SCH (09:56)
[2022-04-25] MEDS ORDERED: POTASSIUM CL 60 MEQ in NA CHLORIDE 0.9% 1,000 ML IV ONE (10:00)
[2022-04-25] MEDS ORDERED: KCL 20 MEQ/100 mL IVPB 20 MEQ/100 ML BAG IV SCH (10:00)
[2022-04-25] MEDS: NYSTATIN 500,000 UNIT/5 ML UDC PO SCH ×4 (10:02→22:08)
[2022-04-25] MEDS: FLUCONAZOLE 200mg IVPB 200 MG/100 ML BAG IV SCH (10:42)
[2022-04-25] MEDS: ACETAMINOPHEN 650MG/RECT SUPP PR PRN ×2 (11:39→22:14)
[2022-04-25] MEDS: VANCOMYCIN 750 MG in NA CHLORIDE 0.9% 150 ML IVPB SCH (14:51)
--- NOTE | 2022-04-25 16:21 | P.PN ---
Subjective Date of Service: 04/25/22 Chief Complaint: Altered mental status, fever Subjective: No new changes Physical Examination - Vital Signs Temperature: 99.1 F Blood Pressure: 135/88 Pulse: 131 Respirations: 16 Pulse Ox (%): 94 - Physical Exam General: Alert, Moderate distress HEENT: Atraumatic, Normocephalic Neck: Supple Respiratory: Normal air movement Cardiovascular: Regular rate/rhythm, Normal S1 S2 Gastrointestinal: Soft and benign Musculoskeletal: No swelling Neurological: Normal speech, Normal strength at 5/5 x4 extr Assessment And Plan - Plan Altered mentation: Pap secondary to toxic/metabolic related issue. UDS was positive for benzos. Will follow symptomatology. CSF analysis showed elevated protein however final cultures pending. Will continue empiric antibiotic for meningitis in view of immunocompromise state. ID specialist following HIV disease: Patient has poor compliance with antiretroviral therapy. Will continue empiric antibiotic therapy pending finalization of CD4 count. ID following for management recommendation. Will continue to follow symptomatology. Oral thrush: Patient has significant oral/esophageal thrush. Will continue nystatin swish and swallow. Will had IV fluconazole for management. ID following. Hypokalemia: Severely low potassium noted at 2.6 today. We will replete and monitor. Deemed secondary to malnutrition. Prophylaxis: Lovenox for DVT prophylaxis
--- NOTE | 2022-04-25 17:22 | PN ---
Subjective: The patient is lying in bed, slightly more awake today. The patient denies any specific problem other than vague chest discomfort and abdominal discomfort and also some nausea and vomiting , which is slightly better now. Objective: Vital Signs: Temperature 100.3, pulse 115, respirations 17, blood pressure 119/81. Lungs: Basal crackles. Heart: S1, S2. Regular. Abdomen: Soft, nontender. Bowel sounds present. Extremity: No edema. Laboratory Data: Shows WBC 4.2, hemoglobin 8.1, platelets are 166. Chemistry shows sodium 143, pota ssium 2.7, chloride 114, bicarb 20, BUN 9, creatinine 0.38, glucose is 78. Toxicology is positive fo r benzodiazepine and THC. Micro data shows cultures negative for 24 hours. The patient is currently on cefepime and vancomycin and Diflucan for thrush. Assessment And Plan: The patient is coming in with sepsis, fever. Cultures are negative with histor y of human immunodeficiency virus and noncompliant. Positive for drug screen for benzodiazepine and THC. We will continue empiric treatment, pending culture results altered mental status is improving. Continue supportive care and antibiotic treatment. We will follow the patient as needed. Can be s witched to oral once patient is start to have oral intake. NF/MODL Voice ID: [id number] Report ID: [id number]
[2022-04-25] MEDS: ENSURE ENLIVE 237 ML CAN PO SCH (22:09)
[2022-04-26] MEDS ORDERED: ACETAMINOPHEN 325 MG/SUPP PR ONE (00:51)
[2022-04-26] MEDS: NA CHLORIDE 0.9% 1,000 ML IV SCH ×3 (01:28→16:42)
[2022-04-26] MEDS: ACETAMINOPHEN 650MG/RECT SUPP PR PRN ×3 (03:50→23:39)
[2022-04-26 06:36] LABS: Absolute Lymphocytes (CBC) 0.3 K/uL (0.7-4.9); Lymphocytes % 7.6 % (15.3-44.8); MCV 89.7 fL (80-100); MPV 7.3 fL (7.6-11.3); RBC Red Blood Cell Count 2.56 M/uL (3.86-4.86)
[2022-04-26 07:01] LABS: Albumin 1.9 g/dL (3.4-5.0); Bilirubin Total 0.3 mg/dL (0.2-1.0); Protein, Total 5.3 g/dL (6.4-8.2)
[2022-04-26 07:02] LABS: Potassium 2.6 mmol/L (3.5-5.1)
[2022-04-26] MEDS ORDERED: POTASSIUM CL SA 10 MEQ TAB PO ONE (07:28)
[2022-04-26] MEDS ORDERED: POTASSIUM CL 40 MEQ in NA CHLORIDE 0.9% 500 ML IV SCH (08:00)
[2022-04-26] MEDS: VANCOMYCIN 750 MG in NA CHLORIDE 0.9% 150 ML IVPB SCH ×2 (08:57→20:45)
[2022-04-26] MEDS: NYSTATIN 500,000 UNIT/5 ML UDC PO SCH ×4 (08:59→20:05)
[2022-04-26] MEDS: ENOXAPARIN 40 MG/0.4 ML SQ SCH (08:59)
[2022-04-26] MEDS: ENSURE ENLIVE 237 ML CAN PO SCH ×2 (09:00→20:05)
[2022-04-26] MEDS: CEFEPIME 1 GM in NA CHLORIDE 0.9% 100 ML IV SCH ×2 (10:10→20:04)
[2022-04-26] MEDS: FLUCONAZOLE 200mg IVPB 200 MG/100 ML BAG IV SCH (10:34)
--- NOTE | 2022-04-26 17:03 | P.PN ---
Subjective Date of Service: 04/26/22 Chief Complaint: Altered mental status, fever Subjective: No new changes, Improving Physical Examination - Vital Signs Temperature: 102.1 F Blood Pressure: 129/79 Pulse: 122 Respirations: 18 Pulse Ox (%): 94 - Physical Exam General: Alert, Oriented x3 HEENT: Atraumatic, Normocephalic, Other (oral thrush.) Neck: Supple Respiratory: Normal air movement Cardiovascular: Regular rate/rhythm, Normal S1 S2 Gastrointestinal: Soft and benign Musculoskeletal: No swelling - Studies Microbiology Data (last 24 hrs): 04/23/22 20:30 Catheterized Urine Hooper Count - Final No growth. 04/23/22 20:30 Catheterized Urine - Final No growth. Assessment And Plan - Plan Altered mentation: perhapssecondary to toxic/metabolic related issue. UDS was positive for benzos. Will follow symptomatology. CSF analysis showed elevated protein however final cultures pending. Will continue empiric antibiotic for meningitis in view of immunocompromised sta te. ID specialist following HIV disease: Patient has poor compliance with antiretroviral therapy. Will continue empiric antibiotic therapy pending finalization of CD4 count. ID following for management recommendation. Will continue to follow symptomatology. Oral thrush: Patient has significant oral/esophageal thrush. Will continue nystatin swish and swallow. Will continue IV fluconazole for additional management. ID following. Hypokalemia: Severely low potassium noted at 2.6 again today. We will replete and monitor. Deemed secondary to malnutrition. Prophylaxis: Lovenox for DVT prophylaxis
[2022-04-26] MEDS: CALCIUM CARBONATE 500 MG TAB PO SCH (20:05)
[2022-04-26 21:05] LABS: Urine Appearance Clear (Clear); Urine Bilirubin Negative (Negative); Urine Blood Negative (Negative); Urine Color Yellow (Yellow); Urine Glucose Negative (Negative); Urine Protein 1+ (Negative); Urine Urobilinogen 0.2 mg/dL (0.2-1.0)
[2022-04-26 21:06] LABS: Urine Microscopic Reflex ORDER UMIC
[2022-04-26 21:31] LABS: Urine Bacteria NONE SEEN /HPF (<20); Urine RBC NONE SEEN /HPF (NONE SEEN)
[2022-04-26] MEDS: KCL 20 MEQ/100 mL IVPB 20 MEQ/100 ML BAG IV SCH (23:24)
[2022-04-27] MEDS: KCL 20 MEQ/100 mL IVPB 20 MEQ/100 ML BAG IV SCH ×2 (01:17→03:17)
[2022-04-27] MEDS: NA CHLORIDE 0.9% 1,000 ML IV SCH ×3 (01:28→13:33)
[2022-04-27 05:50] LABS: Absolute Lymphocytes (CBC) 0.3 K/uL (0.7-4.9); Hematocrit 23.7 % (36.0-45.0); Lymphocytes % 8.5 % (15.3-44.8); MCV 88.6 fL (80-100); MPV 7.5 fL (7.6-11.3); RBC Red Blood Cell Count 2.67 M/uL (3.86-4.86)
[2022-04-27 05:58] LABS: Albumin 1.8 g/dL (3.4-5.0); Bilirubin Total 0.2 mg/dL (0.2-1.0); Potassium 3.5 mmol/L (3.5-5.1); Protein, Total 5.4 g/dL (6.4-8.2)
[2022-04-27] MEDS: CALCIUM CARBONATE 500 MG TAB PO SCH ×2 (08:52→20:59)
[2022-04-27] MEDS: NYSTATIN 500,000 UNIT/5 ML UDC PO SCH ×4 (08:52→20:59)
[2022-04-27] MEDS: ENOXAPARIN 40 MG/0.4 ML SQ SCH (08:52)
[2022-04-27] MEDS: VANCOMYCIN 750 MG in NA CHLORIDE 0.9% 150 ML IVPB SCH (08:53)
[2022-04-27 08:56] LABS: Potassium 3.4 mmol/L (3.5-5.1)
[2022-04-27] MEDS ORDERED: POTASSIUM CL SA 10 MEQ TAB PO ONE ×2 (09:00→09:17)
[2022-04-27] MEDS: ENSURE ENLIVE 237 ML CAN PO SCH ×2 (09:00→20:59)
[2022-04-27] MEDS ORDERED: NA CHLORIDE 0.9% 100 ML ONE (09:32)
[2022-04-27] MEDS ORDERED: CEFEPIME 1 GM/VIAL ONE (09:33)
[2022-04-27] MEDS: CEFEPIME 1 GM in NA CHLORIDE 0.9% 100 ML IV SCH (09:36)
[2022-04-27 10:25] LABS: Urine Appearance Clear (Clear); Urine Bilirubin Negative (Negative); Urine Blood Trace-intact (Negative); Urine Color Yellow (Yellow); Urine Glucose Negative (Negative); Urine Protein 1+ (Negative); Urine Urobilinogen 0.2 mg/dL (0.2-1.0)
[2022-04-27 10:26] LABS: Urine Microscopic Reflex ORDER UMIC
[2022-04-27 11:12] LABS: Urine Mucus 1+ /HPF (NONE SEEN)
[2022-04-27 11:14] LABS: Urine Bacteria <20 /HPF (<20); Urine RBC <5 /HPF (NONE SEEN)
[2022-04-27] MEDS: FLUCONAZOLE 200mg IVPB 200 MG/100 ML BAG IV SCH (11:14)
--- NOTE | 2022-04-27 13:47 | P.PN ---
Subjective Date of Service: 04/27/22 Chief Complaint: Altered mental status, fever Subjective: No new changes, Improving Physical Examination - Vital Signs Temperature: 99.3 F Blood Pressure: 125/86 Pulse: 114 Respirations: 16 Pulse Ox (%): 97 - Physical Exam General: Alert, Oriented x3 HEENT: Atraumatic, Normocephalic Neck: Supple Respiratory: Normal air movement Cardiovascular: Regular rate/rhythm, Normal S1 S2 Gastrointestinal: Soft and benign Neurological: Normal speech Assessment And Plan - Plan Altered mentation: perhaps secondary to toxic/metabolic related issue. UDS was positive for benzos. Will follow symptomatology. CSF analysis showed elevated protein however final cultures pending. Will continue empiric antibiotic for meningitis in view of immunocompromised state. ID specialist following HIV disease: Patient has poor compliance with antiretroviral therapy. Will continue empiric antibiotic therapy pending finalization of CD4 count. ID following for management recommendation. Will continue to follow symptomatology. Oral thrush: Patient has significant oral/esophageal thrush. Will continue nystatin swish and swallow. Will continue IV fluconazole for additional management. ID following. Hypokalemia: potassium is better today at 3.5. We will monitor on daily labs. Deemed secondary to malnutrition. Prophylaxis: Lovenox for DVT prophylaxis
[2022-04-27] MEDS: ACETAMINOPHEN 650MG/RECT SUPP PR PRN (16:44)
[2022-04-27] MEDS ORDERED: MORPHINE 2 MG/ML SYR IV ONE (16:53)
[2022-04-28] MEDS: NA CHLORIDE 0.9% 1,000 ML IV SCH ×4 (01:28→17:52)
[2022-04-28] MEDS: CEFEPIME 1 GM in NA CHLORIDE 0.9% 100 ML IV SCH ×2 (01:54→09:00)
[2022-04-28] MEDS: ACETAMINOPHEN 650MG/RECT SUPP PR PRN (02:51)
[2022-04-28] MEDS: VANCOMYCIN 750 MG in NA CHLORIDE 0.9% 150 ML IVPB SCH ×3 (02:55→17:51)
[2022-04-28 04:20] LABS: Absolute Lymphocytes (CBC) 0.3 K/uL (0.7-4.9); Hematocrit 23.1 % (36.0-45.0); Lymphocytes % 8.5 % (15.3-44.8); MCV 87.8 fL (80-100); MPV 7.6 fL (7.6-11.3); RBC Red Blood Cell Count 2.63 M/uL (3.86-4.86)
[2022-04-28 04:36] LABS: Albumin 1.9 g/dL (3.4-5.0); Bilirubin Total 0.3 mg/dL (0.2-1.0); Potassium 3.1 mmol/L (3.5-5.1); Protein, Total 5.6 g/dL (6.4-8.2)
[2022-04-28 04:59] LABS: Blood Morphology Comment NOT SEEN (NOT SEEN); Platelet Estimate ADEQ
[2022-04-28] MEDS: ENOXAPARIN 40 MG/0.4 ML SQ SCH (09:00)
[2022-04-28] MEDS ORDERED: POTASSIUM CL SA 10 MEQ TAB PO ONE (09:00)
[2022-04-28] MEDS: ENSURE ENLIVE 237 ML CAN PO SCH ×2 (09:00→20:57)
[2022-04-28] MEDS ORDERED: CEFEPIME 2 GM VIAL ONE (09:28)
[2022-04-28] MEDS ORDERED: NA CHLORIDE 0.9% 100 ML ONE (09:35)
[2022-04-28] MEDS: CEFEPIME 2 GM in NA CHLORIDE 0.9% 100 ML IV SCH ×2 (10:03→16:35)
[2022-04-28] MEDS: CALCIUM CARBONATE 500 MG TAB PO SCH ×2 (10:03→21:00)
[2022-04-28] MEDS: FLUCONAZOLE 200mg IVPB 200 MG/100 ML BAG IV SCH (10:04)
[2022-04-28] MEDS: NYSTATIN 500,000 UNIT/5 ML UDC PO SCH ×4 (10:04→21:00)
[2022-04-28] MEDS ORDERED: clonazePAM 1 MG TAB PO ONE (10:30)
[2022-04-28] MEDS ORDERED: clonazePAM 0.5 MG TAB PO ONE (10:30)
[2022-04-28] MEDS: MICAFUNGIN SODIUM 100 MG in NA CHLORIDE 0.9% 100 ML IV SCH (13:54)
--- NOTE | 2022-04-28 16:34 | P.PN ---
Subjective Date of Service: 04/28/22 Chief Complaint: Altered mental status, fever Patient seen and examined at bedside, still altered at bedside. Patient believes she is currently in the eighth grade. States she feels bad overall. Cannot exactly tell me where her pain is coming from. Review of Systems 10-point ROS is otherwise unremarkable Physical Examination - Vital Signs Temperature: 99.1 F Blood Pressure: 113/79 Pulse: 122 Respirations: 18 Pulse Ox (%): 97 - Studies Laboratory Last Values WBC 6.0 K/uL (4.3-10.9) 04/23/22 19:40 RBC 3.52 M/uL (3.86-4.86) L 04/23/22 19:40 Hgb 10.3 g/dL (12.0-15.0) L 04/23/22 19:40 Hct 31.9 % (36.0-45.0) L 04/23/22 19:40 MCV 90.5 fL (80-100) D 04/23/22 19:40 MCH 29.2 pg (27.0-35.0) D 04/23/22 19:40 MCHC 32.3 g/dL (32.0-36.0) 04/23/22 19:40 RDW 17.9 % (12.1-15.2) H 04/23/22 19:40 Plt Count 197 K/uL (152-406) 04/23/22 19:40 MPV 7.4 fL (7.6-11.3) L 04/23/22 19:40 Neutrophils % 86.4 % (41.7-73.7) H 04/23/22 19:40 Lymphocytes % 8.8 % (15.3-44.8) L 04/23/22 19:40 Monocytes % 3.9 % (3.3-12.3) 04/23/22 19:40 Eosinophils % 0.7 % (0-4.4) 04/23/22 19:40 Basophils % 0.2 % (0-1.3) 04/23/22 19:40 Absolute Neutrophils 5.2 K/uL (1.8-8.0) 04/23/22 19:40 Absolute Lymphocytes 0.5 K/uL (0.7-4.9) L 04/23/22 19:40 Absolute Monocytes 0.2 K/uL (0.1-1.3) 04/23/22 19:40 Absolute Eosinophils 0.0 K/uL (0-0.5) 04/23/22 19:40 Absolute Basophils 0.0 K/uL (0-0.5) 04/23/22 19:40 PT 12.3 SECONDS (9.5-12.5) 04/23/22 19:40 INR 1.12 04/23/22 19:40 APTT 36.6 SECONDS (24.3-36.9) 04/23/22 19:40 Sodium 142 mmol/L (136-145) 04/23/22 19:40 Potassium 3.2 mmol/L (3.5-5.1) L 04/23/22 19:40 Chloride 106 mmol/L (98-107) 04/23/22 19:40 Carbon Dioxide 26 mmol/L (21-32) 04/23/22 19:40 Anion Gap 13.2 mEq/L (5.0-15.0) 04/23/22 19:40 BUN 24 mg/dL (7-18) H 04/23/22 19:40 Creatinine 0.76 mg/dL (0.55-1.3) 04/23/22 19:40 Est GFR (CKD-EPI) 102 ml/min (=/>90) 04/23/22 19:40 Glucose 101 mg/dL (74-106) 04/23/22 19:40 Lactic Acid 1.2 mmol/L (0.4-2.0) 04/23/22 19:40 Calcium 9.0 mg/dL (8.5-10.1) 04/23/22 19:40 Total Bilirubin 0.4 mg/dL (0.2-1.0) 04/23/22 19:40 AST 71 U/L (15-37) H 04/23/22 19:40 ALT 56 U/L (12-78) 04/23/22 19:40 Alkaline Phosphatase 80 U/L (45-117) 04/23/22 19:40 Serum Total Protein 7.6 g/dL (6.4-8.2) 04/23/22 19:40 Albumin 2.9 g/dL (3.4-5.0) L 04/23/22 19:40 Globulin 4.7 g/dL (2.3-3.5) H 04/23/22 19:40 Albumin/Globulin Ratio 0.6 (1.1-1.8) L 04/23/22 19:40 Lipase 184 U/L (73-393) 04/23/22 19:40 Procalcitonin 0.15 ng/mL (<0.050) H 04/23/22 19:40 Urine pH 6.0 (5.0-7.0) 04/23/22 20:40 Ur Specific Bowen >=1.030 (1.005-1.030) 04/23/22 20:40 Glucose (UA)(Auto) Negative (Negative) 04/23/22 20:40 Urine Ketones 1+ (Negative) H 04/23/22 20:40 Urine Blood Negative (Negative) 04/23/22 20:40 Urine Nitrite Negative (Negative) 04/23/22 20:40 Ur Leukocyte Esterase Negative (Negative) 04/23/22 20:40 Urine RBC None seen /HPF (NONE SEEN) 04/23/22 20:30 Urine WBC <5 /HPF (<5) 04/23/22 20:30 Ur Squamous Epith Cells <5 /HPF (NONE SEEN) 04/23/22 20:30 Amorphous Sediment 1+ /HPF (NONE SEEN) 04/23/22 20:30 Urine Bacteria <20 /HPF (<20) 04/23/22 20:30 Urine Mucus Heavy /HPF (NONE SEEN) 04/23/22 20:30 Urine Culture Reflexed Not needed 04/23/22 20:30 Urine Total Protein 3+ (Negative) H 04/23/22 20:40 Opiates Screen Negative (NEGATIVE) 04/23/22 20:30 Methadone Screen Negative (NEGATIVE) 04/23/22 20:30 Ur Barbiturates Screen Negative (NEGATIVE) 04/23/22 20:30 Ur Phencyclidine Scrn Negative (NEGATIVE) 04/23/22 20:30 Amphetamines Screen Negative (NEGATIVE) 04/23/22 20:30 Benzodiazepines Screen Positive (NEGATIVE) H 04/23/22 20:30 Cocaine Screen Negative (NEGATIVE) 04/23/22 20:30 Ur THC Screen Positive (NEGATIVE) H 04/23/22 20:30 SARS-CoV-2 Rap RNA(RT-PCR) Negative (NEGATIVE) 04/23/22 19:50 Assessment And Plan - Plan Physical Exam: General: Cachectic, Confused HEENT: Atraumatic Neck: Supple Respiratory: Clear to auscultation bilaterally, Normal air movement Cardiovascular: Normal pulses, Other (Tachycardia) Gastrointestinal: Normal bowel sounds, Soft and benign Musculoskeletal: No clubbing, No swelling, No contractures Integumentary: No rashes, No breakdown Conclusions/Impression: Antibiotics: Vancomycin: urrent Cefepime: urrent Antifungal: Micafungin: 04/28-current diflucan: 04/25-04/28 Assessment/plan Altered mental status with concern for infection in an immunocompromise patient [place] CT negative. Blood, urine, and CSF cultures all negative. Cryptococcus antigen was not pulled from CSF fluid. In the meantime, recommend continuing empiric micafungin Tox screen positive for benzos and THC Recommend continuing empiric antibiotics until altered mental status resolves. Oral thrush Continue nystatin oral solution HIV Patient is noncompliant with medications. WBC 4.0. Absolute neutrophil count 3.5. CD4 count pending. Anemia Continue to monitor H&H Plan of care discussed Dr. Salamanca Thank you for consultation
[2022-04-28] MEDS: PANTOPRAZOLE 40MG TABLET PO SCH (16:35)
[2022-04-28] MEDS: ACETAMINOPHEN 325 MG TABLET PO PRN (17:52)
[2022-04-29] MEDS: CEFEPIME 2 GM in NA CHLORIDE 0.9% 100 ML IV SCH ×3 (00:08→17:57)
[2022-04-29] MEDS: VANCOMYCIN 750 MG in NA CHLORIDE 0.9% 150 ML IVPB SCH ×4 (01:17→20:23)
[2022-04-29] MEDS: NA CHLORIDE 0.9% 1,000 ML IV SCH ×3 (01:18→17:28)
[2022-04-29 06:14] LABS: Potassium 2.6 mmol/L (3.5-5.1)
[2022-04-29] MEDS: KCL 20 MEQ/100 mL IVPB 20 MEQ/100 ML BAG IV SCH ×4 (07:25→22:45)
[2022-04-29] MEDS: ENOXAPARIN 40 MG/0.4 ML SQ SCH (10:40)
[2022-04-29] MEDS: NYSTATIN 500,000 UNIT/5 ML UDC PO SCH ×4 (10:40→20:23)
[2022-04-29] MEDS: CALCIUM CARBONATE 500 MG TAB PO SCH ×2 (10:41→20:23)
[2022-04-29] MEDS: PANTOPRAZOLE 40MG TABLET PO SCH ×2 (10:41→17:57)
[2022-04-29] MEDS: ACETAMINOPHEN 325 MG TABLET PO PRN (10:41)
[2022-04-29] MEDS: ENSURE ENLIVE 237 ML CAN PO SCH ×2 (10:42→20:24)
[2022-04-29] MEDS ORDERED: VANCOMYCIN 500 MG/VIAL ONE (11:11)
[2022-04-29] MEDS: MICAFUNGIN SODIUM 100 MG in NA CHLORIDE 0.9% 100 ML IV SCH (14:05)
--- NOTE | 2022-04-29 15:12 | P.PN ---
Subjective Date of Service: 04/29/22 Chief Complaint: Altered mental status, fever Patient seen and examined at bedside, T-max today of 101.1 despite being on broad-spectrum IV antibiotic therapy. Repeat blood cultures ordered. Review of Systems 10-point ROS is otherwise unremarkable Physical Examination - Vital Signs Temperature: 99.9 F Blood Pressure: 106/66 Pulse: 103 Respirations: 16 Pulse Ox (%): 95 - Studies Laboratory Last Values WBC 6.0 K/uL (4.3-10.9) 04/23/22 19:40 RBC 3.52 M/uL (3.86-4.86) L 04/23/22 19:40 Hgb 10.3 g/dL (12.0-15.0) L 04/23/22 19:40 Hct 31.9 % (36.0-45.0) L 04/23/22 19:40 MCV 90.5 fL (80-100) D 04/23/22 19:40 MCH 29.2 pg (27.0-35.0) D 04/23/22 19:40 MCHC 32.3 g/dL (32.0-36.0) 04/23/22 19:40 RDW 17.9 % (12.1-15.2) H 04/23/22 19:40 Plt Count 197 K/uL (152-406) 04/23/22 19:40 MPV 7.4 fL (7.6-11.3) L 04/23/22 19:40 Neutrophils % 86.4 % (41.7-73.7) H 04/23/22 19:40 Lymphocytes % 8.8 % (15.3-44.8) L 04/23/22 19:40 Monocytes % 3.9 % (3.3-12.3) 04/23/22 19:40 Eosinophils % 0.7 % (0-4.4) 04/23/22 19:40 Basophils % 0.2 % (0-1.3) 04/23/22 19:40 Absolute Neutrophils 5.2 K/uL (1.8-8.0) 04/23/22 19:40 Absolute Lymphocytes 0.5 K/uL (0.7-4.9) L 04/23/22 19:40 Absolute Monocytes 0.2 K/uL (0.1-1.3) 04/23/22 19:40 Absolute Eosinophils 0.0 K/uL (0-0.5) 04/23/22 19:40 Absolute Basophils 0.0 K/uL (0-0.5) 04/23/22 19:40 PT 12.3 SECONDS (9.5-12.5) 04/23/22 19:40 INR 1.12 04/23/22 19:40 APTT 36.6 SECONDS (24.3-36.9) 04/23/22 19:40 Sodium 142 mmol/L (136-145) 04/23/22 19:40 Potassium 3.2 mmol/L (3.5-5.1) L 04/23/22 19:40 Chloride 106 mmol/L (98-107) 04/23/22 19:40 Carbon Dioxide 26 mmol/L (21-32) 04/23/22 19:40 Anion Gap 13.2 mEq/L (5.0-15.0) 04/23/22 19:40 BUN 24 mg/dL (7-18) H 04/23/22 19:40 Creatinine 0.76 mg/dL (0.55-1.3) 04/23/22 19:40 Est GFR (CKD-EPI) 102 ml/min (=/>90) 04/23/22 19:40 Glucose 101 mg/dL (74-106) 04/23/22 19:40 Lactic Acid 1.2 mmol/L (0.4-2.0) 04/23/22 19:40 Calcium 9.0 mg/dL (8.5-10.1) 04/23/22 19:40 Total Bilirubin 0.4 mg/dL (0.2-1.0) 04/23/22 19:40 AST 71 U/L (15-37) H 04/23/22 19:40 ALT 56 U/L (12-78) 04/23/22 19:40 Alkaline Phosphatase 80 U/L (45-117) 04/23/22 19:40 Serum Total Protein 7.6 g/dL (6.4-8.2) 04/23/22 19:40 Albumin 2.9 g/dL (3.4-5.0) L 04/23/22 19:40 Globulin 4.7 g/dL (2.3-3.5) H 04/23/22 19:40 Albumin/Globulin Ratio 0.6 (1.1-1.8) L 04/23/22 19:40 Lipase 184 U/L (73-393) 04/23/22 19:40 Procalcitonin 0.15 ng/mL (<0.050) H 04/23/22 19:40 Urine pH 6.0 (5.0-7.0) 04/23/22 20:40 Ur Specific [place] >=1.030 (1.005-1.030) 04/23/22 20:40 Glucose (UA)(Auto) Negative (Negative) 04/23/22 20:40 Urine Ketones 1+ (Negative) H 04/23/22 20:40 Urine Blood Negative (Negative) 04/23/22 20:40 Urine Nitrite Negative (Negative) 04/23/22 20:40 Ur Leukocyte Esterase Negative (Negative) 04/23/22 20:40 Urine RBC None seen /HPF (NONE SEEN) 04/23/22 20:30 Urine WBC <5 /HPF (<5) 04/23/22 20:30 Ur Squamous Epith Cells <5 /HPF (NONE SEEN) 04/23/22 20:30 Amorphous Sediment 1+ /HPF (NONE SEEN) 04/23/22 20:30 Urine Bacteria <20 /HPF (<20) 04/23/22 20:30 Urine Mucus Heavy /HPF (NONE SEEN) 04/23/22 20:30 Urine Culture Reflexed Not needed 04/23/22 20:30 Urine Total Protein 3+ (Negative) H 04/23/22 20:40 Opiates Screen Negative (NEGATIVE) 04/23/22 20:30 Methadone Screen Negative (NEGATIVE) 04/23/22 20:30 Ur Barbiturates Screen Negative (NEGATIVE) 04/23/22 20:30 Ur Phencyclidine Scrn Negative (NEGATIVE) 04/23/22 20:30 Amphetamines Screen Negative (NEGATIVE) 04/23/22 20:30 Benzodiazepines Screen Positive (NEGATIVE) H 04/23/22 20:30 Cocaine Screen Negative (NEGATIVE) 04/23/22 20:30 Ur THC Screen Positive (NEGATIVE) H 04/23/22 20:30 SARS-CoV-2 Rap RNA(RT-PCR) Negative (NEGATIVE) 04/23/22 19:50 Microbiology Data (last 24 hrs): 04/23/22 20:00 Blood - Blood Aerobic Blood Culture - Final No growth in 5 days. 04/23/22 20:00 Blood - Blood Anaerobic Blood Culture - Final No growth in 5 days. 04/23/22 20:15 Blood - Blood Aerobic Blood Culture - Final No growth in 5 days. 04/23/22 20:15 Blood - Blood Anaerobic Blood Culture - Final No growth in 5 days. Assessment And Plan - Plan Physical Exam: General: Cachectic, Confused HEENT: Atraumatic Neck: Supple Respiratory: Clear to auscultation bilaterally, Normal air movement Cardiovascular: Normal pulses, Other (Tachycardia) Gastrointestinal: Normal bowel sounds, Soft and benign Musculoskeletal: No clubbing, No swelling, No contractures Integumentary: No rashes, No breakdown Conclusions/Impression: Antibiotics: Vancomycin: urrent Cefepime: urrent Antifungal: Micafungin: 04/28-current diflucan: 04/25-04/28 Assessment/plan Altered mental status with concern for infection in an immunocompromise patient -T-max today of 101.[address] negative. Blood, urine, and CSF cultures all negative. Cryptococcus antigen was not pulled from CSF fluid. Lab is now running at. In the meantime, recommend continuing empiric micafungin Tox screen positive for benzos and THC Recommend continuing empiric antibiotics until altered mental status resolves. -Repeat blood cultures obtained on 04/29 are pending Oral thrush Continue nystatin oral solution HIV Patient is noncompliant with medications. WBC 4.0. Absolute neutrophil count 3.5. CD4 count pending. Anemia Continue to monitor H&H Plan of care discussed Dr. Salamanca Thank you for consultation
[2022-04-30] MEDS: KCL 20 MEQ/100 mL IVPB 20 MEQ/100 ML BAG IV SCH ×2 (00:57→03:13)
[2022-04-30] MEDS: ACETAMINOPHEN 325 MG TABLET PO PRN ×2 (00:58→22:52)
[2022-04-30] MEDS: CEFEPIME 2 GM in NA CHLORIDE 0.9% 100 ML IV SCH ×3 (00:58→17:01)
[2022-04-30] MEDS: NA CHLORIDE 0.9% 1,000 ML IV SCH ×3 (01:28→21:20)
[2022-04-30] MEDS: VANCOMYCIN 750 MG in NA CHLORIDE 0.9% 150 ML IVPB SCH ×3 (03:51→21:19)
[2022-04-30 09:32] LABS: Absolute Lymphocytes (CBC) 0.2 K/uL (0.7-4.9); Hematocrit 22.5 % (36.0-45.0); Lymphocytes % 4.5 % (15.3-44.8); MCV 88.9 fL (80-100); MPV 8.2 fL (7.6-11.3); RBC Red Blood Cell Count 2.53 M/uL (3.86-4.86)
[2022-04-30 09:51] LABS: Albumin 1.7 g/dL (3.4-5.0); Bilirubin Total 0.3 mg/dL (0.2-1.0); Protein, Total 5.3 g/dL (6.4-8.2)
[2022-04-30 09:52] LABS: Magnesium 1.7 mg/dL (1.8-2.4)
[2022-04-30 09:59] LABS: Blood Morphology Comment NOTED (NOT SEEN); Platelet Estimate ADEQ
[2022-04-30 10:00] LABS: Anisocytosis SLIGHT
[2022-04-30] MEDS: CALCIUM CARBONATE 500 MG TAB PO SCH ×2 (10:07→21:00)
[2022-04-30] MEDS: ENOXAPARIN 40 MG/0.4 ML SQ SCH (10:07)
[2022-04-30] MEDS: PANTOPRAZOLE 40MG TABLET PO SCH ×2 (10:10→17:00)
[2022-04-30] MEDS: ENSURE ENLIVE 237 ML CAN PO SCH ×2 (10:11→21:00)
[2022-04-30] MEDS: NYSTATIN 500,000 UNIT/5 ML UDC PO SCH ×4 (10:11→21:19)
[2022-04-30] MEDS ORDERED: POTASSIUM CL SA 10 MEQ TAB PO ONE ×2 (10:32→19:00)
--- NOTE | 2022-04-30 11:11 | P.PN ---
Subjective Date of Service: 04/30/22 Chief Complaint: Altered mental status, fever Patient seen and examined at bedside, Tmax today of 99.8. Echo pending. Review of Systems 10-point ROS is otherwise unremarkable Physical Examination - Vital Signs Temperature: 98.2 F Blood Pressure: 107/79 Pulse: 99 Respirations: 16 Pulse Ox (%): 96 - Studies Laboratory Last Values WBC 6.0 K/uL (4.3-10.9) 04/23/22 19:40 RBC 3.52 M/uL (3.86-4.86) L 04/23/22 19:40 Hgb 10.3 g/dL (12.0-15.0) L 04/23/22 19:40 Hct 31.9 % (36.0-45.0) L 04/23/22 19:40 MCV 90.5 fL (80-100) D 04/23/22 19:40 MCH 29.2 pg (27.0-35.0) D 04/23/22 19:40 MCHC 32.3 g/dL (32.0-36.0) 04/23/22 19:40 RDW 17.9 % (12.1-15.2) H 04/23/22 19:40 Plt Count 197 K/uL (152-406) 04/23/22 19:40 MPV 7.4 fL (7.6-11.3) L 04/23/22 19:40 Neutrophils % 86.4 % (41.7-73.7) H 04/23/22 19:40 Lymphocytes % 8.8 % (15.3-44.8) L 04/23/22 19:40 Monocytes % 3.9 % (3.3-12.3) 04/23/22 19:40 Eosinophils % 0.7 % (0-4.4) 04/23/22 19:40 Basophils % 0.2 % (0-1.3) 04/23/22 19:40 Absolute Neutrophils 5.2 K/uL (1.8-8.0) 04/23/22 19:40 Absolute Lymphocytes 0.5 K/uL (0.7-4.9) L 04/23/22 19:40 Absolute Monocytes 0.2 K/uL (0.1-1.3) 04/23/22 19:40 Absolute Eosinophils 0.0 K/uL (0-0.5) 04/23/22 19:40 Absolute Basophils 0.0 K/uL (0-0.5) 04/23/22 19:40 PT 12.3 SECONDS (9.5-12.5) 04/23/22 19:40 INR 1.12 04/23/22 19:40 APTT 36.6 SECONDS (24.3-36.9) 04/23/22 19:40 Sodium 142 mmol/L (136-145) 04/23/22 19:40 Potassium 3.2 mmol/L (3.5-5.1) L 04/23/22 19:40 Chloride 106 mmol/L (98-107) 04/23/22 19:40 Carbon Dioxide 26 mmol/L (21-32) 04/23/22 19:40 Anion Gap 13.2 mEq/L (5.0-15.0) 04/23/22 19:40 BUN 24 mg/dL (7-18) H 04/23/22 19:40 Creatinine 0.76 mg/dL (0.55-1.3) 04/23/22 19:40 Est GFR (CKD-EPI) 102 ml/min (=/>90) 04/23/22 19:40 Glucose 101 mg/dL (74-106) 04/23/22 19:40 Lactic Acid 1.2 mmol/L (0.4-2.0) 04/23/22 19:40 Calcium 9.0 mg/dL (8.5-10.1) 04/23/22 19:40 Total Bilirubin 0.4 mg/dL (0.2-1.0) 04/23/22 19:40 AST 71 U/L (15-37) H 04/23/22 19:40 ALT 56 U/L (12-78) 04/23/22 19:40 Alkaline Phosphatase 80 U/L (45-117) 04/23/22 19:40 Serum Total Protein 7.6 g/dL (6.4-8.2) 04/23/22 19:40 Albumin 2.9 g/dL (3.4-5.0) L 04/23/22 19:40 Globulin 4.7 g/dL (2.3-3.5) H 04/23/22 19:40 Albumin/Globulin Ratio 0.6 (1.1-1.8) L 04/23/22 19:40 Lipase 184 U/L (73-393) 04/23/22 19:40 Procalcitonin 0.15 ng/mL (<0.050) H 04/23/22 19:40 Urine pH 6.0 (5.0-7.0) 04/23/22 20:40 Ur Specific Pearl >=1.030 (1.005-1.030) 04/23/22 20:40 Glucose (UA)(Auto) Negative (Negative) 04/23/22 20:40 Urine Ketones 1+ (Negative) H 04/23/22 20:40 Urine Blood Negative (Negative) 04/23/22 20:40 Urine Nitrite Negative (Negative) 04/23/22 20:40 Ur Leukocyte Esterase Negative (Negative) 04/23/22 20:40 Urine RBC None seen /HPF (NONE SEEN) 04/23/22 20:30 Urine WBC <5 /HPF (<5) 04/23/22 20:30 Ur Squamous Epith Cells <5 /HPF (NONE SEEN) 04/23/22 20:30 Amorphous Sediment 1+ /HPF (NONE SEEN) 04/23/22 20:30 Urine Bacteria <20 /HPF (<20) 04/23/22 20:30 Urine Mucus Heavy /HPF (NONE SEEN) 04/23/22 20:30 Urine Culture Reflexed Not needed 04/23/22 20:30 Urine Total Protein 3+ (Negative) H 04/23/22 20:40 Opiates Screen Negative (NEGATIVE) 04/23/22 20:30 Methadone Screen Negative (NEGATIVE) 04/23/22 20:30 Ur Barbiturates Screen Negative (NEGATIVE) 04/23/22 20:30 Ur Phencyclidine Scrn Negative (NEGATIVE) 04/23/22 20:30 Amphetamines Screen Negative (NEGATIVE) 04/23/22 20:30 Benzodiazepines Screen Positive (NEGATIVE) H 04/23/22 20:30 Cocaine Screen Negative (NEGATIVE) 04/23/22 20:30 Ur THC Screen Positive (NEGATIVE) H 04/23/22 20:30 SARS-CoV-2 Rap RNA(RT-PCR) Negative (NEGATIVE) 04/23/22 19:50 Assessment And Plan - Plan Physical Exam: General: Cachectic, Confused HEENT: Atraumatic. Oral thursh with blue/green hue Neck: Supple Respiratory: Clear to auscultation bilaterally, Normal air movement Cardiovascular: Normal pulses, Other (Tachycardia) Gastrointestinal: Normal bowel sounds, Soft and benign Musculoskeletal: No clubbing, No swelling, No contractures Integumentary: No rashes, No breakdown Conclusions/Impression: Antibiotics: Vancomycin: urrent Cefepime: urrent Antifungal: Micafungin: 04/28-current diflucan: 04/25-04/28 Assessment/plan Altered mental status with concern for infection in an immunocompromise patient -T-max today of 99.8. [place] CT negative. Blood, urine, and CSF cultures all negative. Cryptococcus antigen was not pulled from CSF fluid. Lab is now running at. In the meantime, recommend continuing empiric micafungin Tox screen positive for benzos and THC Recommend continuing empiric antibiotics until altered mental status resolves. -Repeat blood cultures obtained on 04/29 are pending -echo pending Oral thrush Continue nystatin oral solution HIV Patient is noncompliant with medications. WBC 4.2. Absolute neutrophil count 3.8. CD4 count pending. Anemia Continue to monitor H&H Plan of care discussed Dr. Salamanca Thank you for consultation
[2022-04-30] MEDS: MICAFUNGIN SODIUM 100 MG in NA CHLORIDE 0.9% 100 ML IV SCH (12:43)
--- NOTE | 2022-04-30 14:51 | RAD REPORT ---
EXAM DESCRIPTION: CT - Head Brain W/Wo Con - 04/30/2022 2:33 pm CLINICAL HISTORY: AIDS; AMS COMPARISON: Chest For Pe Angio dated 04/23/2022; Chest Single View dated 04/23/2022 TECHNIQUE: All CT scans are performed using dose optimization technique as appropriate and may inclu de automated exposure control or mA/KV adjustment according to patient size. FINDINGS: Multifocal vasogenic edema is present bilaterally. No discrete enhancing mass is seen. No acute intracranial hemorrhage is seen. No hydrocephalus though the left ventricle is partially efface d. Mild [id number] midline shift. The paranasal sinuses and mastoids are clear. The calvarium is intact. IMPRESSION: Multifocal areas of vasogenic edema bilaterally without discrete enhancing lesion. This could reflect progressive multifocal leukoencephalopathy in this patient with reported AIDS. Other in fectious, inflammatory, and neoplastic etiologies are within the differential.
--- NOTE | 2022-04-30 16:56 | P.PN ---
Date of Service: 04/28/22 Subjective Subjective: Patient is confused. Not really interacting like she normally does. Chart has been reviewed and she has not been taking any of her HIV meds x1 year. She apparently had the clinic change and never went to an HIV specialist. Physical Examination - Vital Signs Reviewed - Physical Exam General: Alert, Oriented x3; but confused and really is not appropriate to her baseline Respiratory: Normal air movement Cardiovascular: Regular rate/rhythm, Normal S1 S2 Gastrointestinal: Soft and benign Neurological: Normal speech Assessment And Plan - Plan Altered mentation: Patient clinically is doing well. Patient denies any new complaints. Spinal fluid was tapped and no evidence of bacterial infection. Cryptococcus antigen has not been sent. Toxoplasmosis antigen has not been sent. CT is not perform ed. HIV disease: CD4 count pending; will start antiretrovirals if available Oral thrush: Patient has significant oral/esophageal thrush. Will continue nystatin swish and swallow. Will continue IV fluconazole for additional management. ID following. Hypokalemia: Continue monitoring electrolytes Prophylaxis: Lovenox for DVT prophylaxis
--- NOTE | 2022-04-30 16:57 | P.PN ---
Date of Service: 04/29/22 Subjective Subjective: Patient appears to be doing somewhat better. We will review imaging studies. Physical Examination - Vital Signs Reviewed - Physical Exam General: Alert, Oriented x3; but confused and really is not appropriate to her baseline Respiratory: Normal air movement Cardiovascular: Regular rate/rhythm, Normal S1 S2 Gastrointestinal: Soft and benign Neurological: Normal speech Assessment And Plan - Plan Altered mentation: Patient clinically is doing well. Patient denies any new complaints. Spinal fluid was tapped and no evidence of bacterial infection. Cryptococcus antigen has not been sent. Toxoplasmosis antigen has not been sent. CT scan pending. HIV disease: CD4 count pending; will start antiretrovirals if available Oral thrush: Patient has significant oral/esophageal thrush. Will continue nystatin swish and swallow. Will continue IV fluconazole for additional management. ID following. Hypokalemia: Continue monitoring electrolytes Prophylaxis: Lovenox for DVT prophylaxis
[2022-04-30] MEDS ORDERED: VANCOMYCIN 500 MG/VIAL ONE (20:03)
[2022-05-01] MEDS: CEFEPIME 2 GM in NA CHLORIDE 0.9% 100 ML IV SCH ×2 (00:04→09:00)
[2022-05-01] MEDS ORDERED: IBUPROFEN 400 MG TAB PO ONE (00:21)
[2022-05-01] MEDS: NA CHLORIDE 0.9% 1,000 ML IV SCH ×3 (01:28→23:35)
[2022-05-01] MEDS: VANCOMYCIN 750 MG in NA CHLORIDE 0.9% 150 ML IVPB SCH (03:43)
[2022-05-01 04:11] LABS: Potassium 2.8 mmol/L (3.5-5.1)
[2022-05-01] MEDS: KCL 20 MEQ/100 mL IVPB 20 MEQ/100 ML BAG IV SCH ×4 (04:56→23:34)
[2022-05-01] MEDS: MORPHINE 2 MG/ML SYR IV PRN ×3 (05:36→23:34)
--- NOTE | 2022-05-01 07:24 | P.PN ---
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 Spoke to infectious disease and they are recommending transfer to a hospital bed at is able to manage patient is HIV and AIDS symptoms. We will work on transfer to [facility] initially. Continues to have low-grade fever Physical Examination - Vital Signs Reviewed - Physical Exam General: Alert, Oriented x3; but confused and really is not appropriate to her baseline Respiratory: Normal air movement Cardiovascular: Regular rate/rhythm, Normal S1 S2 Gastrointestinal: Soft and benign Neurological: Normal speech Assessment And Plan - Plan Altered mentation: Patient clinically is doing well. Patient denies any new complaints. Spinal fluid was tapped and no evidence of bacterial infection. Cryptococcus antigen has not been sent. Toxoplasmosis antigen has not been sent. CT scan pending. HIV disease: CD4 count pending; will start antiretrovirals if available Oral thrush: Patient has significant oral/esophageal thrush. Will continue nystatin swish and swallow. Will continue IV fluconazole for additional management. ID following. Hypokalemia: Continue monitoring electrolytes Prophylaxis: Lovenox for DVT prophylaxis
[2022-05-01] MEDS: NYSTATIN 500,000 UNIT/5 ML UDC PO SCH ×4 (09:57→21:00)
[2022-05-01] MEDS: ENOXAPARIN 40 MG/0.4 ML SQ SCH (09:57)
[2022-05-01] MEDS: CALCIUM CARBONATE 500 MG TAB PO SCH ×2 (09:57→21:00)
[2022-05-01] MEDS: PANTOPRAZOLE 40MG TABLET PO SCH ×2 (10:03→17:57)
[2022-05-01] MEDS: EMTRICITABINE/TENOFOVIR 1 TAB PO SCH ×2 (10:03→14:58)
[2022-05-01] MEDS: ENSURE ENLIVE 237 ML CAN PO SCH ×2 (10:04→21:00)
[2022-05-01] MEDS: SMZ./TMP. 800/160 MG TABLET PO SCH (12:17)
[2022-05-01] MEDS: ACYCLOVIR 400 MG TABLET PO SCH ×2 (12:18→21:00)
[2022-05-01] MEDS: MICAFUNGIN SODIUM 100 MG in NA CHLORIDE 0.9% 100 ML IV SCH (13:00)
--- NOTE | 2022-05-01 15:22 | RAD REPORT ---
EXAM DESCRIPTION: RAD - Chest Single View - 05/01/2022 3:11 pm CLINICAL HISTORY: pneumonia COMPARISON: Chest Single View dated 04/23/2022; Chest Single View dated 01/31/2022; Chest Single View d ated 01/30/2022; Chest Single View dated 01/29/2022; Chest For Pe Angio dated 04/23/2022 FINDINGS: Lines: None. Lungs: New mild ill-defined opacities in the right lung base. The left lung is clear. Pleural: No significant pleural effusions or pneumothorax. Cardiac: The heart size is within normal limits. Bones: No acute fractures. Other: IMPRESSION: New mild right basilar airspace disease could reflect atelectasis, aspiration, and/or pn eumonia.
[2022-05-01] MEDS: ACETAMINOPHEN 325 MG TABLET PO PRN (18:04)
[2022-05-01] MEDS ORDERED: HYDROMORPHONE HCL 1 MG/ML INJ IV ONE (19:08)
--- NOTE | 2022-05-01 19:20 | PN ---
Subjective: The patient is lying in bed. No new acute event. Opens eyes spontaneously, nonverbal. Objective: Vital Signs: Temperature 97.9, pulse 94, respirations 26, blood pressure 114/78. Lungs: Basal crackles. Heart: S1, S2. Regular. Abdomen: Soft. Bowel sounds present. Extremity: Edema noted. Laboratory Data: Shows WBC 4.0, hemoglobin 7.6, platelets are 146. Chemistry shows sodium 143, pota ssium 2.8, chloride 114, bicarb 18, BUN 10, creatinine 0.4, glucose 97. Albumin level is 1.7. Assessment And Plan: The patient with AIDS with CT scan showing progressive multifocal leukoencephal opathy. Prognosis is poor. We will recommend to start the patient on pending transfer to [facility] care. Continue supportive care for protein-calorie malnourishment and anemia. We will follo w the patient as needed. NF/MODL Voice ID: [id number] Report ID: [id number]
--- NOTE | 2022-05-01 23:37 | P.PN ---
Date of Service: 05/01/22 Subjective Subjective: Today patient's chest x-ray also shows a pneumonia. We have been trying to get her transferred as we do not have neurology service available. We do not have HIV specialist. Patient needs higher level of care. We did not have patient's HIV medications available to start right away. We have had to hold off until tomorrow when it arrives. Patient's CD4 count was 28. Patient high risk for opportunistic infections diffusely. We need to start antiretrovirals as soon as possible. 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 Spoke to infectious disease and they are recommending transfer to a hospital bed at is able to manage patient is HIV and AIDS symptoms. We will work on transfer to [facility] initially. Continues to have low-grade fever Physical Examination - Vital Signs Reviewed - Physical Exam General: Alert, Oriented x2; but confused and really is not appropriate to her baseline; Eating very little HEENT exam: patient with thrush /oropharyngeal candidiasis Respiratory: rhonchi and diminished breath sounds bibasilar Cardiovascular: Regular rate/rhythm, Normal S1 S2 Gastrointestinal: Soft and benign Neurological: aphasic. Generalized weakness Assessment And Plan - Plan Altered mentation: Patients clinical symptoms worsens. Patient denies any new complaints. Spinal fluid was tapped and no evidence of bacterial infection. Cryptococcus antigen has been sent. Toxoplasmosis antigen has not been sent. APOLLO virus PCR sent. CT scan pending. HIV disease: CD4 count 28; will start antiretrovirals if available; will treat with opp ortunistic infection antibiotic Oral thrush: Patient has significant oral pharyngeal/esophageal thrush. Will continue nystatin swish and swallow. Will continue IV capsofungin for additional management. ID following. Hypokalemia: Continue monitoring electrolytes Prophylaxis: Lovenox for DVT prophylaxis
[2022-05-01] MEDS ORDERED: HYDROCORTISONE SUC 100 MG INJ IV ONE (23:51)
[2022-05-02] MEDS: KCL 20 MEQ/100 mL IVPB 20 MEQ/100 ML BAG IV SCH (01:21)
[2022-05-02] MEDS: NA CHLORIDE 0.9% 1,000 ML IV SCH (02:43)
[2022-05-02] MEDS: ACETAMINOPHEN 325 MG TABLET PO PRN (02:43)
[2022-05-02 04:52] LABS: Absolute Lymphocytes (CBC) 0.2 K/uL (0.7-4.9); Hematocrit 21.9 % (36.0-45.0); Lymphocytes % 2.3 % (15.3-44.8); MCV 90.3 fL (80-100); MPV 8.6 fL (7.6-11.3); RBC Red Blood Cell Count 2.42 M/uL (3.86-4.86)
[2022-05-02 05:12] LABS: Albumin 1.5 g/dL (3.4-5.0); Bilirubin Total 0.3 mg/dL (0.2-1.0); Magnesium 1.8 mg/dL (1.8-2.4); Potassium 3.8 mmol/L (3.5-5.1); Protein, Total 4.9 g/dL (6.4-8.2)
[2022-05-02] MEDS: MORPHINE 2 MG/ML SYR IV PRN ×3 (05:46→20:33)
[2022-05-02] MEDS: ENOXAPARIN 40 MG/0.4 ML SQ SCH (08:02)
[2022-05-02] MEDS: HYDROCORTISONE SUC 100 MG INJ IV SCH ×2 (08:02→19:51)
[2022-05-02] MEDS: CALCIUM CARBONATE 500 MG TAB PO SCH ×2 (08:02→19:51)
[2022-05-02] MEDS: NYSTATIN 500,000 UNIT/5 ML UDC PO SCH ×4 (08:03→19:51)
[2022-05-02] MEDS: ENSURE ENLIVE 237 ML CAN PO SCH (08:03)
[2022-05-02] MEDS: PANTOPRAZOLE 40MG TABLET PO SCH ×2 (08:03→16:49)
[2022-05-02] MEDS ORDERED: DOLUTEGRAVIR SODIUM 50 MG TABLET PO SCH (09:00)
[2022-05-02] MEDS ORDERED: POTASSIUM 25 MEQ EFFERV TAB PO ONE (09:00)
[2022-05-02] MEDS: SMZ./TMP. 800/160 MG TABLET PO SCH (09:00)
--- NOTE | 2022-05-02 09:47 | ECHO ---
HEIGHT: 5 ft 1 in WEIGHT: 90 lb 0 oz DATE OF STUDY: 05/01/[address]: Aminta Maloney 2-DIMENSIONAL: YES M.MODE: YES DOPPLER: YES COLOR FLOW: YES TDS: PORTABLE: YES DEFINITY: BUBBLE STUDY: DIAGNOSIS: FEVER OF ORIGIN UNKNOWN CARDIAC HISTORY: CATHERIZATION: NO SURGERY: NO PROSTHETIC VALVE: NO PACEMAKER: NO MEASUREMENTS (cm) DIASTOLIC (NORMALS) SYSTOLIC (NORMALS) IVSd 1.0 (0.6-1.2) LA Diam 2.7 (1.9-4.0) LVEF 60-65% LVIDd 3.3 (3.5-5.7) LVIDs 1.8 (2.0-3.5) %FS 47% LVPWd 1.0 (0.6-1.2) Ao Diam 2.2 (2.0-3.7) 2 DIMENSIONAL ASSESSMENT: RIGHT ATRIUM: NORMAL LEFT ATRIUM: NORMAL RIGHT VENTRICLE: NORMAL LEFT VENTRICLE: NORMAL TRICUSPID VALVE: NORMAL MITRAL VALVE: NORMAL PULMONIC VALVE: NORMAL AORTIC VALVE: NORMAL PERICARDIAL EFFUSION: NONE AORTIC ROOT: NORMAL LEFT VENTRICULAR WALL MOTION: NORMAL DOPPLER/COLOR FLOW: MILD TRICUSPID REGURGITATION. COMMENTS: NORMAL LEFT VENTRICULAR EJECTION FRACTION 60-65%. NORMAL WALL MOTION. MILD TRICUSPID REGURGITATION. TECHNOLOGIST: LUIZ BERMUDEZ
[2022-05-02] MEDS ORDERED: SULFAMETH/TRIMETHOPRIM 200 MG/5 ML UDBOT PO SCH (10:00)
[2022-05-02] MEDS: EMTRICITABINE/TENOFOVIR 1 TAB PO SCH (10:16)
--- NOTE | 2022-05-02 10:34 | RAD REPORT ---
EXAM DESCRIPTION: RAD - Chest Single View - 05/01/2022 10:29 pm COMPARISON: Chest radiograph from April 23, 2022. TECHNIQUE: Single view AP chest radiograph(s). FINDINGS: Left PICC terminates at the superior cavoatrial junction. No pulmonary infiltrate identifi ed. No pleural effusion. No pneumothorax. Nonenlarged cardiomediastinal silhouette. No significant os seous abnormality. IMPRESSION: Left PICC terminates at the superior cavoatrial junction. Electronically signed by: Sherin Winslow MD 05/01/2022 11:07 PM CDT Due to temporary technical issues with the PACS/Fluency reporting system, reports are being signed by the in house radiologist without review as a courtesy to ensure prompt reporting. The interpreting r adiologist is fully responsible for the content of the report.
[2022-05-02] MEDS: DOLUTEGRAVIR SODIUM 50 MG TABLET PO SCH (12:12)
[2022-05-02] MEDS: ACYCLOVIR 400 MG TABLET PO SCH ×2 (12:12→21:17)
--- NOTE | 2022-05-02 12:49 | P.PN ---
Subjective Date of Service: 05/02/22 Chief Complaint: Altered mental status, fever Patient seen and examined at bedside, patient transferred to ICU prognosis guarded. Review of Systems 10-point ROS is otherwise unremarkable Physical Examination - Vital Signs Temperature: 97.8 F Blood Pressure: 115/71 Pulse: 106 Respirations: 47 Pulse Ox (%): 93 - Physical Exam HEENT: Scleral icterus Assessment And Plan - Plan Physical Exam: General: Cachectic, Confused HEENT: Atraumatic. Oral thursh with blue/green hue Neck: Supple Respiratory: Tachypneic, diminished breath sounds bilaterally Cardiovascular: Normal pulses, Other (Tachycardia) Gastrointestinal: Normal bowel sounds, Soft and benign Musculoskeletal: No clubbing, No swelling, No contractures Integumentary: No rashes, No breakdown Conclusions/Impression: Antibiotics: Vancomycin: urrent Cefepime: urrent Antifungal: Micafungin: 04/28-current diflucan: 04/25-04/28 Antiviral: Acyclovir 05/01current Assessment/plan Altered mental status in AIDS patient -CD4 count of 28. -Head CT showed signs concerning for PML. We have restarted patient's antiviral therapy. Recommend transfer to neuro ICU. -Blood, urine, and CSF cultures all negative. Cryptococcus antigen was not pulled from CSF fluid. Lab is now running it. In the meantime, recommend continuing empiric micafungin -Echocardiogram negative for acute vegetation Pending labs include: Galactomannan, beta D-glucan, cryptococcus capsular polysaccharide, JCV PCR on CSF, HSV titers on CSF, toxoplasmosis quantitative PCR, and histoplasma antigen -Recommend continuing current antibiotics, antifungals, antivirals at this time given patient's severely low CD4 count. Concern for PJP Patient severely tachypneic. Have started patient on PJP treatment dosage. Oral thrush Continue nystatin oral solution Anemia Continue to monitor H&H Plan of care discussed Dr. Salamanca Thank you for consultation
[2022-05-02] MEDS: MICAFUNGIN SODIUM 100 MG in NA CHLORIDE 0.9% 100 ML IV SCH (13:03)
[2022-05-02] MEDS ORDERED: METOPROLOL TARTRATE 5 MG/5 ML INJ IV STA (15:34)
[2022-05-02] MEDS ORDERED: FENTANYL CITR 100 MCG/2 ML IV ONE (16:00)
[2022-05-02] MEDS ORDERED: AA 5%/D20W/ELECTROLYTES-TPN 2,000 ML, Lipids 20% 250 ML with MULTIVITAMINS INJ 10 ML IV SCH ×3 (17:00)
[2022-05-02] MEDS ORDERED: LORazepam 2 MG/ML VIAL IV ONE (18:00)
--- NOTE | 2022-05-02 18:32 | RAD REPORT ---
EXAM DESCRIPTION: RAD - Abdomen 1 View (KUB) - 05/02/2022 6:04 pm CLINICAL HISTORY: dobbhoff placement COMPARISON: Chest Single View dated 05/01/2022; Chest Single View dated 05/01/2022 FINDINGS/IMPRESSION: Weighted feeding tube tip overlies the stomach. The bowel gas pattern is nonobs tructive.
[2022-05-02] MEDS: SULFAMETH/TRIMETHOPRIM 200 MG/5 ML UDBOT PO SCH (19:50)
[2022-05-02] MEDS ORDERED: ACYCLOVIR 400 MG TABLET ONE (21:19)
--- NOTE | 2022-05-03 00:23 | P.PN ---
Date of Service: 05/02/22 Subjective Subjective: Today patient's chest x-ray also shows a pneumonia. We have been trying to get her transferred as we do not have neurology service available. We do not have HIV specialist. Patient needs higher level of care. We did not have patient's HIV medications available to start right away. We have had to hold off until tomorrow when it arrives. Patient's CD4 count was 28. Patient high risk for opportunistic infections diffusely. We need to start antiretrovirals as soon as possible. 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 Spoke to infectious disease and they are recommending transfer to a hospital bed at is able to manage patient is HIV and AIDS symptoms. We will work on transfer to [facility] initially. Continues to have low-grade fever Physical Examination - Vital Signs Reviewed - Physical Exam General: Alert, Oriented x2; but confused and really is not appropriate to her baseline; Eating very little HEENT exam: patient with thrush /oropharyngeal candidiasis Respiratory: rhonchi and diminished breath sounds bibasilar Cardiovascular: Regular rate/rhythm, Normal S1 S2 Gastrointestinal: Soft and benign Neurological: aphasic. Generalized weakness Assessment And Plan - Plan Altered mentation: Patients clinical symptoms worsens. Patient denies any new complaints. Spinal fluid was tapped and no evidence of bacterial infection. Cryptococcus antigen has been sent. Toxoplasmosis antigen has not been sent. APOLLO virus PCR sent. CT scan pending. HIV disease: CD4 count 28; will start antiretrovirals if available; will treat with opp ortunistic infection antibiotic Oral thrush: Patient has significant oral pharyngeal/esophageal thrush. Will continue nystatin swish and swallow. Will continue IV capsofungin for additional management. ID following. Hypokalemia: Continue monitoring electrolytes Prophylaxis: Lovenox for DVT prophylaxis
[2022-05-03 05:08] LABS: Absolute Lymphocytes (CBC) 0.1 K/uL (0.7-4.9); Lymphocytes % 1.9 % (15.3-44.8); MCV 91.1 fL (80-100); MPV 9.2 fL (7.6-11.3); RBC Red Blood Cell Count 2.17 M/uL (3.86-4.86)
[2022-05-03 05:16] LABS: Hematocrit 19.8 % (36.0-45.0)
[2022-05-03 05:19] LABS: Potassium 3.6 mmol/L (3.5-5.1)
[2022-05-03] MEDS ORDERED: POTASSIUM 25 MEQ EFFERV TAB PO ONE (05:40)
[2022-05-03] MEDS: MORPHINE 2 MG/ML SYR IV PRN ×2 (06:39→21:50)
[2022-05-03] MEDS ORDERED: GLUCAGON 1 MG/VIAL IM PRN (07:24)
[2022-05-03] MEDS ORDERED: D50W 25 GM/50 ML SYRINGE IV PRN (07:24)
[2022-05-03] MEDS: INSULIN -REGULAR HUMAN 50 UNIT/0.5 ML ML SQ SCH ×4 (07:47→23:37)
[2022-05-03 07:59] LABS: Platelet Estimate ADEQ
[2022-05-03 08:00] LABS: Anisocytosis 1+; Blood Morphology Comment NOTED (NOT SEEN)
[2022-05-03] MEDS: PANTOPRAZOLE 40MG TABLET PO SCH ×2 (08:37→17:21)
[2022-05-03] MEDS: SULFAMETH/TRIMETHOPRIM 200 MG/5 ML UDBOT PO SCH ×2 (08:38→19:23)
[2022-05-03] MEDS: NYSTATIN 500,000 UNIT/5 ML UDC PO SCH ×4 (08:39→19:23)
[2022-05-03] MEDS: CALCIUM CARBONATE 500 MG TAB PO SCH ×2 (08:39→19:24)
[2022-05-03] MEDS: HYDROCORTISONE SUC 100 MG INJ IV SCH ×2 (08:39→19:24)
[2022-05-03] MEDS: EMTRICITABINE/TENOFOVIR 1 TAB PO SCH (08:40)
[2022-05-03] MEDS: ACYCLOVIR 400 MG TABLET PO SCH ×2 (08:49→19:24)
[2022-05-03] MEDS: WATER FOR INJ,STERILE 0 ML ONE ×2 (08:49→08:52)
[2022-05-03] MEDS ORDERED: NA CHLORIDE 0.9% 250 ML IV SCH (10:00)
[2022-05-03] MEDS: ENOXAPARIN 40 MG/0.4 ML SQ SCH (11:47)
--- NOTE | 2022-05-03 11:47 | P.CNS ---
Date of Consult: 05/03/22 Reason for Consult: Respiratory failure HIV positive Chief Complaint: Altered mental status, fever History of Present Illness: Patient is 41 years of age history of HIV infection has been progressively deteriorating for the past 2 months as per mother she was initially on hospice and she was sent back home but during the last 2 years during COVID era patient did not take any medications has deteriorated not eating and drinking at home apparently has multifocal leukoencephalopathy has now developed respiratory distress presumed pneumocystis s/p lumbar puncture Allergies risperidone [From Risperdal] Allergy (Verified 08/16/19 10:22) Anaphylaxis Home Medications: Benzonatate [Tessalon Perle*] 100 mg PO TID PRN #60 cap 02/04/22 Docusate [Colace Cap*] 100 mg PO BID #60 cap 02/04/22 Ensure High Protein 237 ml PO BID #30 can 02/04/22 Nystatin 5 ml PO TID #473 ml 02/04/22 Pantoprazole [Protonix Tab*] 40 mg PO BIDAC #60 tab 02/04/22 Smz./Tmp. [Bactrim Ds 800 MG/160 MG*] 2 tab PO TID #84 tab 02/04/22 predniSONE [Prednisone*] 20 mg PO DAILY #7 tab 02/04/22 traMADol HCL [Ultram*] 50 mg PO Q6H PRN #16 tab 02/04/22 - Past Medical/Surgical History Diabetic: No -: Irritable bowel syndrome -: Persistent nausea/vomiting -: Depression/anxiety -: History of suicide attempt -: Arthritis -: Bipolar disorder -: HIV -: Cholecystectomy -: Tubal ligation Psychosocial/ Personal History: Unknown - Family History Mother Medical History: Cancer Notes: Colon - Social History Smoking Status: Unknown if ever smoked Alcohol use: No CD- Drugs: No Caffeine use: Yes Place of Residence: Home Review of Systems is unable to be obtained Physical Examination Temp Pulse Resp BP Pulse Ox 97.4 F 98 H 34 H 108/74 98 05/03/22 08:00 05/03/22 11:00 05/03/22 11:00 05/03/22 11:00 05/03/22 11:00 General: Unresponsive Respiratory: Clear to auscultation bilaterally, Diminished Cardiovascular: No edema, Regular rate/rhythm Gastrointestinal: Normal bowel sounds, Soft and benign - Problems (1) Respiratory failure Current Visit: Yes Status: Acute Plan: Patient is 41 years of age HIV positive noncompliant with medication was in hospice before he revoked currently is unresponsive respiratory failure presumed pneumocystis discussed with IV patient needs full dose of Bactrim for now treated with micafungin presumed cryptococcus patient is mildly anemic blood cultures negative chest x-ray some groundglass changes labs meds all reviewed gnosis very poor patient's blood sugars elevated changed to nasogastric tube feeds also on Solu-Medrol PAOLLO virus studies pending for PML is currently on BiPAP Qualifiers: Chronicity: acute
[2022-05-03] MEDS: DOLUTEGRAVIR SODIUM 50 MG TABLET PO SCH (13:12)
[2022-05-03] MEDS: MICAFUNGIN SODIUM 100 MG in NA CHLORIDE 0.9% 100 ML IV SCH (13:12)
[2022-05-03] MEDS ORDERED: AA 5%/D20W/ELECTROLYTES-TPN 2,000 ML IV SCH (17:00)
[2022-05-03 17:24] LABS: Hematocrit 23.6 % (36.0-45.0)
--- NOTE | 2022-05-03 17:31 | P.DS ---
Discharge Date: 05/03/22 Reason for Admission: Altered mental status, fever Brief History of Present Illness: 41-year-old female history of HIV, medical noncompliance presents emergency department for altered mental status, lethargy, fever. T-max was 103 at home did have a fever here at the hospital initially heart rate was 150. Her labs so far have been remarkable only for mild hypokalemia, normocytic anemia negative for UTI urine drug screen positive for benzos and THC she had CT of her chest abdomen and pelvis which was negative for any acute findings. Patient very lethargic still with altered mental status temperature is improved blood pressure is borderline no source of infection has been identified patient given broad-spectrum antibiotics will attempt lumbar puncture to rule out meningitis given fever, altered mental status and immunocompromise status. Will admit with infectious disease consult on broad-spectrum antibiotics and await results of home blood cultures which were obtained in the emergency department. Vital Signs/Physical Exam: Temp Pulse Resp BP Pulse Ox 97.4 F 99 H 30 H 117/89 100 05/03/22 16:00 05/03/22 16:00 05/03/22 16:00 05/03/22 16:00 05/03/22 16:00 Laboratory Data at Discharge: WBC 7.6 K/uL (4.3-10.9) 05/03/22 04:45 Hgb 7.9 g/dL (12.0-15.0) L 05/03/22 17:00 Hct 23.6 % (36.0-45.0) L D 05/03/22 17:00 Plt Count 105 K/uL (152-406) L 05/03/22 04:45 PT 12.3 SECONDS (9.5-12.5) 04/23/22 19:40 INR 1.12 04/23/22 19:40 APTT 36.6 SECONDS (24.3-36.9) 04/23/22 19:40 Sodium 143 mmol/L (136-145) 05/03/22 04:45 Potassium 3.6 mmol/L (3.5-5.1) 05/03/22 04:45 BUN 18 mg/dL (7-18) 05/03/22 04:45 Creatinine 0.62 mg/dL (0.55-1.3) 05/03/22 04:45 Glucose 415 mg/dL (74-106) H* 05/03/22 04:45 Magnesium 1.8 mg/dL (1.8-2.4) 05/02/22 04:40 Total Bilirubin 0.3 mg/dL (0.2-1.0) 05/02/22 04:40 AST 119 U/L (15-37) H 05/02/22 04:40 ALT 71 U/L (12-78) 05/02/22 04:40 Alkaline Phosphatase 43 U/L (45-117) L 05/02/22 04:40 Lipase 184 U/L (73-393) 04/23/22 19:40 Home Medications: Benzonatate [Tessalon Perle*] 100 mg PO TID PRN #60 cap 02/04/22 Docusate [Colace Cap*] 100 mg PO BID #60 cap 02/04/22 Ensure High Protein 237 ml PO BID #30 can 02/04/22 Nystatin 5 ml PO TID #473 ml 02/04/22 Pantoprazole [Protonix Tab*] 40 mg PO BIDAC #60 tab 02/04/22 Smz./Tmp. [Bactrim Ds 800 MG/160 MG*] 2 tab PO TID #84 tab 02/04/22 predniSONE [Prednisone*] 20 mg PO DAILY #7 tab 02/04/22 traMADol HCL [Ultram*] 50 mg PO Q6H PRN #16 tab 02/04/22 Followup: Unknown,U [Primary Care Provider] -
[2022-05-03] MEDS ORDERED: METOPROLOL TARTRATE 5 MG/5 ML INJ IV STA ×2 (22:00→22:20)
[2022-05-03] MEDS ORDERED: METOPROLOL TARTRATE 5 MG/5 ML INJ IV ONE (22:06)
[2022-05-03] MEDS ORDERED: AMIODARONE HCL 150 MG in D5W 100 ML IV STA (22:23)
[2022-05-03] MEDS ORDERED: DIGOXIN 0.25 MG/ML AMP IV ONE (22:30)
[2022-05-03] MEDS ORDERED: AMIODARONE HCL 150 MG/3 ML INJ IV ONE (22:44)
[2022-05-03] MEDS ORDERED: AMIODARONE HCL 450 MG in D5W 241 ML IV SCH (23:00)
[2022-05-03] MEDS ORDERED: AMIODARONE HCL 900 MG in Dextrose 5%-Water 482 ML IV SCH (23:00)
[2022-05-03 23:14] VITALS: O2SAT 98
[2022-05-04 00:19] VITALS: BP 95/65; TEMP 97.2
--- NOTE | 2022-05-05 11:53 | EKG ---
Test Date: 2022-05-03 Test Time: 21:11:55 Onion Tier: RT [place] MEASUREMENT RESULTS: Intervals: Rate: 146 CT: QRSD: 72 QT: 308 QTc: 479 [place]: P: CT: QRS: 73 T: 78 INTERPRETIVE STATEMENTS: Atrial fibrillation with rapid ventricular response Abnormal ECG Compared to ECG 04/23/2022 19:54:56 Sinus tachycardia no longer present Electronically Signed On 05-05-22 11:50:19 CDT by Fadi Avila
--- NOTE | 2022-05-05 11:53 | EKG ---
Test Date: 2022-05-03 Test Time: 21:12:52 [employer] Specialist: RT [place] MEASUREMENT RESULTS: Intervals: Rate: 143 [place]: QRSD: 76 QT: 304 QTc: 469 [place]: P: [place]: QRS: 71 T: 83 INTERPRETIVE STATEMENTS: Atrial fibrillation with rapid ventricular response Abnormal ECG Compared to ECG 05/03/2022 21:11:55 No significant changes Electronically Signed On 05-05-22 11:50:18 CDT by Fadi Avila
== END 2022-05-04 01:40 | disposition short-term general hospital (02) | DRG 974 ==
LOC: ER 19:17 → ERHOLD 04-24 00:26 → 2ND 04-24 16:14 → 3RD-ICU 05-01 21:00
PROVIDERS: ADMIT Internal Medicine Nephrology; ATTEND Hospitalist
PROC: 009U3ZX Drainage of Spinal Canal, Percutaneous Approach, Diagnostic (ICD-10-PCS; principal; 2022-04-24)
PROC: 02HV33Z Insertion of Infusion Device into Superior Vena Cava, Percutaneous Approach (ICD-10-PCS; 2022-05-01)
PROC: 3E04329 Introduction of Other Anti-infective into Central Vein, Percutaneous Approach (ICD-10-PCS; 2022-05-01)
PROC: 5A09457 Assistance with Respiratory Ventilation, 24-96 Consecutive Hours, Continuous Positive Airway Pressure (ICD-10-PCS; 2022-05-02)
DX: B20 Human immunodeficiency virus [HIV] disease (principal); B59 Pneumocystosis; J96.00 Acute respiratory failure, unspecified whether with hypoxia or hypercapnia; B37.0 Candidal stomatitis; Z68.1 Body mass index [BMI] 19.9 or less, adult; A81.2 Progressive multifocal leukoencephalopathy; R64 Cachexia; E44.0 Moderate protein-calorie malnutrition; E87.6 Hypokalemia; D64.9 Anemia, unspecified; K58.9 Irritable bowel syndrome, unspecified; F41.8 Other specified anxiety disorders; M19.90 Unspecified osteoarthritis, unspecified site; F31.9 Bipolar disorder, unspecified; F13.10 Sedative, hypnotic or anxiolytic abuse, uncomplicated; F12.10 Cannabis abuse, uncomplicated; F41.9 Anxiety disorder, unspecified; J45.909 Unspecified asthma, uncomplicated; R00.0 Tachycardia, unspecified; Z20.822 Contact with and (suspected) exposure to COVID-19; Z91.14 Patient's other noncompliance with medication regimen
CPT/HCPCS: 36415; 36430; 36569; 51702; 62270; 70470; 71045; 71275; 74018; 74177; 80048; 80053; 80202; 80307; 81003; 81015; 82945; 82947; 83605; 83690; 83735; 83880; 84132; 84145; 84157; 85014; 85018; 85025; 85610; 85730; 86140; 86361; 86403; 86695; 86696; 86850; 86900; 86901; 87040; 87070; 87086; 87088; 87449; 87798; 87804; 88184; 88185; 89050; 93005; 93306; 94660; 99285; J0282; J0692; J1170; J1450; J1650; J1720; J1815; J2248; J2270; J2405; J2543; J3010; J3370; J3480; J3490; J7030; J7040; J7050; J7060; P9016; Q9967; U0003

== ENCOUNTER 2024-08-29 07:13 | Emergency (ER) | payer OTHER ==
[2024-08-29 07:38] LABS: Absolute Eosinophils 0.2 K/uL (0-0.5); Absolute Monocytes 0.5 K/uL (0.1-1.3); Absolute Neutrophil 2.7 K/uL (1.8-8.0); Basophils % 0.5 % (0-1.3); Eosinophils % 4.2 % (0-4.4); Hematocrit 44.7 % (36.0-45.0); Lymphocytes % 36.5 % (15.3-44.8); MCH 31.7 pg (27.0-35.0); MCHC 33.6 g/dL (32.0-36.0); MCV 94.1 fL (80-100); MPV 7.2 fL (7.6-11.3); Monocytes % 9.1 % (3.3-12.3); Neutrophils % 49.7 % (41.7-73.7); Nucleated Red Blood Cells % 0.1 % (0-0); Platelets 278 thou/uL (152-406); RBC Red Blood Cell Count 4.75 M/uL (3.86-4.86); Red Cell Distribution Width 14.2 % (12.1-15.2)
[2024-08-29] MEDS ORDERED: GABAPENTIN 300 MG CAP ONE (07:39)
[2024-08-29] MEDS ORDERED: NA CHLORIDE 0.9% 1,000 ML ONE (07:39)
[2024-08-29 07:55] LABS: Albumin 3.6 g/dL (3.4-5.0); Albumin/Globulin Ratio 0.8 (1.1-1.8); Anion Gap 12.3 mEq/L (5.0-15.0); Bilirubin Total 0.6 mg/dL (0.2-1.0); Globulin 4.3 g/dL (2.3-3.5); Potassium 3.3 mEq/L (3.5-5.1); Protein, Total 7.9 g/dL (6.4-8.2)
[2024-08-29 09:14] LABS: Specific Gravity 1.026 (1.005-1.030); Urine Bacteria <20 /HPF (<20); Urine Bilirubin NEGATIVE (Negative); Urine Blood Negative (Negative); Urine Clarity Extremely Turbid (Clear); Urine Color Yellow (Yellow); Urine Culture Reflex Order REFLEXED; Urine Glucose TRACE (Negative); Urine Ketones 2+ (Negative); Urine Microscopic Reflex YN ORDER UMIC; Urine Mucus Slight /HPF (None Seen); Urine Nitrite NEGATIVE (Negative); Urine Protein 1+ (Negative); Urine RBC <5 /HPF (None Seen); Urine Urobilinogen Normal (Normal); Urine WBC 20-50 /HPF (<5)
--- NOTE | 2024-08-29 09:14 | RAD REPORT ---
EXAMINATION: CT ABDOMEN AND PELVIS WITH CONTRAST CLINICAL INDICATION: anorexia, HIV TECHNIQUE: CT abdomen and pelvis was performed, after the administration of IV contrast, as per [facility] protocol. Axial, sagittal and coronal reconstructions were obtained. One or more of the following dose reduction techniques were used: Automated exposure control, adjustment of the mA and k V according to patient size, and iterative reconstruction. Unless otherwise specified, incidental findings do not require dedicated imaging follow-up. COMPARISON: 04/23/2022 FINDINGS: LOWER CHEST: The visualized lung bases are clear. LIVER: Normal in size and contour. No focal lesion. Cholecystectomy clips. SPLEEN: Normal size. No focal lesion. PANCREAS: No mass, ductal dilation, or carlos-pancreatic fluid. ADRENALS: Normal; no mass. KIDNEYS: Normal size and contour. No hydronephrosis. GASTROINTESTINAL TRACT: No evidence of free air, significant intra-abdominal free fluid, bowel obstru ction or abscess. APPENDIX: Normal appendix. LYMPH NODES: No lymphadenopathy. MUSCULOSKELETAL: Anterior compression deformity L1, chronic in appearance but new since [address] [facility]. ADDITIONAL FINDINGS: None. IMPRESSION: No acute or concerning abnormalities seen in the abdomen or pelvis.
--- NOTE | 2024-08-29 09:28 | ER ---
Nurse's Notes [facility] Name: Dee Espinosa Age: 43 yrs Sex: Female : 1980 Arrival Date: 08/29/2024 Time: 07:09 Bed 7 Private MD: Diagnosis: Dehydration Presentation: 08/29 07:11 Chief complaint: EMS states: NO ACUTE MEDICAL COMPLAINT. PT INFORMED EMS MOTHER CALLED bp 911 "CAUSE SHE WANTS ME OUT OF THE HOUSE.". Coronavirus screen: At this time, the client does not indicate any symptoms associated with coronavirus-19. Ebola Screen: No symptoms or risks identified at this time. Initial Sepsis Screen: Does the patient meet any 2 criteria? No. Patient's initial sepsis screen is negative. Does the patient have a suspected source of infection? No. Patient's initial sepsis screen is negative. Risk Assessment: Do you want to hurt yourself or someone else? Patient reports no desire to harm self or others. Onset of symptoms is unknown. Care prior to arrival: None. 07:11 Method Of Arrival: EMS: [facility] bp 07:11 Acuity: EDUARD 5 bp Triage Assessment: 07:11 General: Appears in no apparent distress. Behavior is calm, cooperative, appropriate bp for age. Pain: Denies pain. EENT: No deficits noted. Neuro: No deficits noted. Cardiovascular: No deficits noted. Respiratory: No deficits noted. GI: No signs and/or symptoms were reported involving the gastrointestinal system. : No signs and/or symptoms were reported regarding the genitourinary system. Derm: No deficits noted. Musculoskeletal: No deficits noted. Historical: - Allergies: 07:10 RISPERIDONE; aa5 - PMHx: 07:10 Anxiety; Asthma; HIV; aa5 - PSHx: 07:10 bowel resection; aa5 - Immunization history:: Adult Immunizations up to date. - Infectious Disease History:: Denies. - Social history:: Smoking status: Patient denies any tobacco usage or history of. - Family history:: not pertinent. - Hospitalizations: : No recent hospitalization is reported. Screenin:[facility] ED Fall Risk Assessment (Adult) History of falling in the last 3 months, bp including since admission No falls in past 3 months (0 pts) Confusion or Disorientation No (0 pts) Intoxicated or Sedated No (0 pts) Impaired Gait No (0 pts) Mobility Assist Device Used No (0 pt) Altered Elimination No (0 pt) Score/Fall Risk Level 0 - 2 = Low Risk. Abuse screen: Denies threats or abuse. Denies injuries from another. Nutritional screening: No deficits noted. Tuberculosis screening: No symptoms or risk factors identified. Assessment: 07:13 General: Appears in no apparent distress. bp 08:49 Reassessment: Patient appears in no apparent distress at this time. Patient is alert, bp oriented x 3, equal unlabored respirations, skin warm/dry/pink. 08:59 Reassessment: Pt to CT scan . aa5 Vital Signs: 07:11 BP 100 / 64; Pulse 100; Resp 18; Temp 98; Pulse Ox 97% ; bp 08:49 BP 102 / 76; Pulse 86; Resp 16; Pulse Ox 100% ; bp 09:30 BP 109 / 80; Pulse 97; Resp 16; Temp 98.1; Pulse Ox 100% ; bp ED Course: 07:09 Patient arrived in ED. aa5 07:10 Brian Sexton MD is Attending Physician. rn 07:11 Catracho Ortiz, ERIC is Primary Nurse. bp 07:11 Arm band placed on. bp 07:13 Triage completed. bp 07:13 Patient has correct armband on for positive identification. bp 07:30 Initial lab(s) drawn, by me, sent to lab. Inserted saline lock: 22 gauge in right aa5 antecubital area, using aseptic technique. Blood collected. Flushed with 10 mL NS. 08:58 Urine collected: clean catch specimen, sent to lab. aa5 09:06 CT Abd/Pelvis - IV Contrast Only In Process Unspecified. EDMS 09:31 No provider procedures requiring assistance completed. IV discontinued, intact, bp bleeding controlled, No redness/swelling at site. Pressure dressing applied. 13:20 i made arrangements for the bus to potato picker the pt and take her to the [facility], bus arrived at 1320 i took the pt to the bus in a wheel chair ,pt was able to walk onto the bus without my assiatance. Administered Medications: 07:45 Drug: NS 0.9% IV 1000 ml IV at 1 bolus Per protocol; to be given as a bolus over 60 aa5 minutes Route: IV; Rate: 1 bolus; Site: right antecubital; 09:29 Follow up: IV Status: Completed infusion; IV Intake: 1000ml bp 07:45 Drug: Gabapentin PO 300 mg PO once Route: PO; aa5 09:29 Follow up: Response: No adverse reaction bp Medication: 07:13 VIS not applicable for this client. bp Intake: : IV: 1000ml; Total: 1000ml. bp Outcome: :28 Discharge ordered by . rn 09:52 Patient left the ED. bp Signatures: Dispatcher [employer] EDMS Mirta Andrews Roman, MD MD rn Calderon, Audri RN RN aa5 Catracho Ortiz RN RN bp
--- NOTE | 2024-08-29 09:29 | EDPHYS ---
Physician Documentation [facility] Name: Dee Espinosa Age: 43 yrs Sex: Female : 1980 Arrival Date: 08/29/2024 Time: 07:09 Bed 7 Private MD: ED Physician Brian Sexton HPI: 08/29 07:44 This 43 yrs old Female presents to ER via EMS with complaints of malaise and rn not eating. 07:44 Patient reports not really sure why she is here. States staying with her mother at this rn time and her mother called 911 due to patient not wanting to eat or drink much lately. Patient reports has HIV, no recent admission to the hospital, compliant with her HIV medication. As far she is concerned her HIV status is in good standing. Denies any fever or chills. Does report weight loss which is somewhat intentional. Patient states used to be really overweight and does not eat or drink much anymore. Denies any vomiting or diarrhea. No blood in stool. No abdominal pain.. Onset: The symptoms/episode began/occurred at an unknown time. Severity of symptoms: At their worst the symptoms were mild in the emergency department the symptoms are unchanged. The patient has not experienced similar symptoms in the past. The patient has not recently seen a physician. Historical: - Allergies: 07:10 RISPERIDONE; aa5 - PMHx: 07:10 Anxiety; Asthma; HIV; aa5 - PSHx: 07:10 bowel resection; aa5 - Immunization history:: Adult Immunizations up to date. - Infectious Disease History:: Denies. - Social history:: Smoking status: Patient denies any tobacco usage or history of. - Family history:: not pertinent. - Hospitalizations: : No recent hospitalization is reported. ROS: 07:44 Constitutional: Negative for fever, chills Cardiovascular: Negative for chest pain, rn palpitations, and edema, Respiratory: Negative for shortness of breath, cough, wheezing, and pleuritic chest pain, Abdomen/GI: Negative for abdominal pain, vomiting, diarrhea, and constipation, MS/Extremity: Negative for injury and deformity, Skin: Negative for injury, rash, and discoloration, Neuro: Negative for headache, numbness, tingling, and seizure, Exam: 08:12 Constitutional: Thin female, no acute distress Head/Face: Normocephalic, atraumatic. furniture arranger: Dry mucous membranes Cardiovascular: Regular rate and rhythm. No pulse deficits. Respiratory: No increased work of breathing, no retractions or nasal flaring. Abdomen/GI: Soft, non-tender MS/ Extremity: Pulses equal, no cyanosis. Neuro: Awake and alert, GCS 15 Vital Signs: 07:11 BP 100 / 64; Pulse 100; Resp 18; Temp 98; Pulse Ox 97% ; bp 08:49 BP 102 / 76; Pulse 86; Resp 16; Pulse Ox 100% ; bp 09:30 BP 109 / 80; Pulse 97; Resp 16; Temp 98.1; Pulse Ox 100% ; bp MDM: 07:10 Patient medically screened. rn 09:27 Differential Diagnosis Dehydration, urinary tract infection, HIV related infection. rn Data reviewed: vital signs, nurses notes, lab test result(s), radiologic studies, CT scan, and as a result, I will discharge patient. Care significantly affected by the following chronic conditions: HIV. Counseling: I had a detailed discussion with the patient and/or guardian regarding the historical points, exam findings, and any diagnostic results supporting the discharge/admit diagnosis, lab results, radiology results, the need for outpatient follow up, to return to the emergency department if symptoms worsen or persist or if there are any questions or concerns that arise at home. Response to treatment: the patient's symptoms have mildly improved after treatment, and as a result, I will discharge patient. Special discussion: I discussed with the patient/guardian in detail that at this point there is no indication for admission to the hospital. It is understood, however, that if the symptoms persist or worsen the patient needs to return immediately for re-evaluation. 09:27 ED course: No acute findings and workup today including CT abdomen pelvis. Normal WBC. rn Normal vital signs. Improved after IV fluids. Slight WBC found in UA but patient denies any urinary symptoms. Esterase and nitrate negative. No bacteria seen in urine so will not treat with antibiotics at this time. I have personally reviewed all of the results, including but not limited to blood tests and imaging deemed necessary to safely discharge this patient at this time. All results given to and printed out for patient. I personally went over all the results with the patient and answered all questions. Patient will follow-up with PCP and or specialist as discussed. Return precautions given and understood.. 08/29 07:17 Order name: CBC with Diff; Complete Time: 08:11 rn 08/29 07:17 Order name: CMP; Complete Time: 08:11 rn 08/29 07:17 Order name: Lipase; Complete Time: 08:11 rn 08/29 07:17 Order name: Urinalysis w/ reflexes; Complete Time: 09:24 rn 08/29 09:18 Order name: Urine Culture EDCA 08/29 07:17 Order name: CT Abd/Pelvis - IV Contrast Only; Complete Time: 09:24 rn 08/29 07:17 Order name: IV Saline Lock; Complete Time: 07:33 rn 08/29 07:17 Order name: Labs collected and sent; Complete Time: 07:33 rn Administered Medications: 07:45 Drug: NS 0.9% IV 1000 ml IV at 1 bolus Per protocol; to be given as a bolus over 60 aa5 minutes Route: IV; Rate: 1 bolus; Site: right antecubital; 09:29 Follow up: IV Status: Completed infusion; IV Intake: 1000ml bp 07:45 Drug: Gabapentin PO 300 mg PO once Route: PO; aa5 09:29 Follow up: Response: No adverse reaction bp Disposition Summary: 08/29/24 09:28 Discharge Ordered Notes: Location: Home rn Problem: an ongoing problem rn Symptoms: have improved rn Condition: Stable rn Diagnosis - Dehydration rn Followup: rn - With: Private Physician - When: As needed - Reason: Recheck today's complaints, Re-evaluation by your physician Discharge Instructions: - Discharge Summary Sheet rn - Dehydration, Adult rn Forms: - Medication Reconciliation Form rn - Antibiotic ornamenter - Prescription Opioid Use rn - Patient Portal Instructions rn - Leadership Thank You Letter rn Signatures: Dispatcher [employer] Brian Adler MD MD rn Calderon, Audri RN RN aa5 Catracho Ortiz RN RN bp Corrections: (The following items were deleted from the chart) 08:12 07:44 Constitutional: Negative for fever, chills, and weight loss, rn rn
[2024-08-29 11:07] VITALS: TEMP 98.1; O2SAT 100
[2024-08-29 11:09] VITALS: BP 102/76
== END 2024-08-29 09:52 | disposition home or self-care (01) ==
LOC: ER 07:13
DX: E86.0 Dehydration (principal); Z21 Asymptomatic human immunodeficiency virus [HIV] infection status
CPT/HCPCS: 87088; 85025; 81001; 87086; 36415; 83690; 80053; 74177; Q9967; J7030; 96360; 96361; 99284